=== PATIENT | female | born 1970 | race Caucasian/White ===

== ENCOUNTER 2018-03-04 20:59 | Observation (INO) ==
[2018-03-04 21:23] LABS: Microscopic, Urine URINE MICROSCOPIC (MICROSCOPIC)
[2018-03-04 21:28] LABS: Basophils # 0.1 K/mm3 (0-0.2); Basophils % 0.6 % (0.1-2.0); Eosinophils # 0.2 K/mm3 (0.0-0.4); Eosinophils % 2.1 % (0.1-12.0); Hematocrit 41.3 % (37.0-47.0); Hemoglobin 13.4 g/dL (12.2-16.2); Lymphocytes # 4.4 K/mm3 (0.7-4.5); Lymphocytes % 52.7 % (10-50); Mean Corpuscular HGB Conc 32.4 g/dL (31.8-35.4); Mean Corpuscular Hemoglobin 31.1 pg (27.0-31.2); Mean Corpuscular Volume 95.8 fl (81-99); Mean Platelet Volume 8.2 fl (7.4-10.4); Monocytes # 0.3 K/mm3 (0.1-1.0); Monocytes % 3.9 % (1.7-9.3); Neutrophils # 3.4 K/mm3 (1.8-7.8); Neutrophils % 40.8 % (37.0-80.0); Platelet Count 276 K/mm3 (142-424); Red Blood Count 4.31 M/mm3 (4.20-5.40); Red Cell Distribution Width 12.9 % (11.5-17.5); White Blood Count 8.3 K/mm3 (4.8-10.8)
[2018-03-04 21:41] LABS: Appearance,Urine CLEAR (Clear); Bilirubin,Urine Negative (Negative); Blood, Urine TRACE-L (Negative); Color,Urine YELLOW (Yellow); Glucose,Urine (UA) Negative (Negative); Ketones,Urine Negative (Negative); Leukocyte Esterase,Urine Negative (Negative); PH,Urine 6.5 (5.0-8.5); Protein,Urine Negative (Negative); Specific Gravity, Urine <= 1.005 (1.005-1.030); Urobilinogen,Urine 0.2 EU/dl (0.2)
[2018-03-04 21:46] LABS: Anion Gap 11.6 mEq/L (5-15); Blood Urea Nitrogen 6 mg/dL (7-18); Calcium 8.8 mg/dL (8.5-10.1); Carbon Dioxide 29 mmol/L (21.0-32.0); Chloride 102 mmol/L (98-107); Glucose 108 mg/dL (74-106); Potassium 3.6 mmoL/L (3.5-5.1); Sodium 139 mmol/L (136-145)
[2018-03-04 22:10] LABS: RBC,Urine Occasional #/hpf (0-3)
--- NOTE | 2018-03-04 22:11 | Emergency Department Note ---
ED Disposition Clinical Impression: Near syncope, Dizziness Chest pain Qualifiers: Chest pain type: unspecified Qualified Code(s): R07.9 - Chest pain, unspecified Disposition: Admitted as Observation Condition on Discharge: Good - Critical Care Critical Care Time: No Attestation: On 03/04/18, the high probability of a clinically significant, sudden or life threatening deterioration of the following system(s) required my full and direct attention, intervention and personal management. The time I documented below is in addition to time spent performing reported procedures but includes the following listed in this critical care notation. Medical Decision Making - Medical Records Medical records reviewed: Yes: I reviewed the patient's medical records. - Angel[place] Inquiry Pt receiving controlled substance: No Vital Signs: 03/04/18 21:01 03/04/18 21:20 03/04/18 21:34 Temperature 98.6 F Temperature Source Oral Pulse Rate [Orthostatic Lying] 89 Pulse Rate [Orthostatic Sitting] 98 H Pulse Rate [Orthostatic Standing] 100 H Pulse Rate [Right Brachial] 89 83 Respiratory Rate 16 17 Blood Pressure [Orthostatic Lying] 140/90 Blood Pressure [Orthostatic Sitting] 137/89 Blood Pressure [Orthostatic Standing] 152/81 H Blood Pressure [Right Arm] 140/90 147/81 H Blood Pressure Mean [Right Arm] 106 103 Blood Pressure Source [Right Arm] Automatic Cuff Automatic Cuff Blood Pressure Position [Right Arm] Supine Sitting 02 Sat by Pulse Oximetry 98 97 Oxygen Delivery Method Room Air Room Air 03/04/18 21:43 Temperature Temperature Source Pulse Rate [Orthostatic Lying] Pulse Rate [Orthostatic Sitting] Pulse Rate [Orthostatic Standing] Pulse Rate [Right Brachial] 99 H Respiratory Rate 16 Blood Pressure [Orthostatic Lying] Blood Pressure [Orthostatic Sitting] Blood Pressure [Orthostatic Standing] Blood Pressure [Right Arm] 155/83 H Blood Pressure Mean [Right Arm] 107 Blood Pressure Source [Right Arm] Automatic Cuff Blood Pressure Position [Right Arm] Sitting 02 Sat by Pulse Oximetry 99 Oxygen Delivery Method Room Air - Lab Data Lab results reviewed: Yes: I reviewed the patient's lab results. Lab Results 03/04/18 21:10: Urine Color Yellow, Urine Appearance Clear, Urine pH 6.5, Ur Specific [place] <= 1.005, Urine Protein Negative, Urine Glucose (UA) Negative, Urine Ketones Negative, Urine Blood Trace-l, Urine Nitrate Negative, Urine Bi lirubin Negative, Urine Urobilinogen 0.2, Ur Leukocyte Esterase Negative 03/04/18 21:10: WBC 8.3, RBC 4.31, Hgb 13.4, Hct 41.3, MCV 95.8, MCH 31.1, MCHC 32.4, RDW 12.9, Plt Count 276, MPV 8.2, Neut % (Auto) 40.8, Lymph % (Auto) 52.7 H, [place] % (Auto) 3.9, Eos % (Auto) 2.1, Baso % (Auto) 0.6, Neut # (Auto) 3.4, Lymph # (Auto) 4.4, [place] # (Auto) 0.3, Eos # (Auto) 0.2, Baso # (Auto) 0.1 03/04/18 21:10: Sodium 139, Potassium 3.6, Chloride 102, Carbon Dioxide 29, Anion Gap 11.6, BUN 6 L, Creatinine 0.82, Estimated Creat Clear 105, Estimated GFR 75, Est GFR ( Amer) 91, Glucose 108 H, Calcium 8.8, Troponin I < 0.02 Result diagrams: 03/04/18 21:10 03/04/18 21:10 Orders (Tests/Meds): ED MEDICATIONS Generic Name Dose Route Start Last Admin Trade Name Freq PRN Reason Stop Dose Admin Sodium Chloride 1,000 mls @ 999 mls/hr 03/04/18 21:30 03/04/18 21:24 Sod Chlor 0.9% 1000ml Bag IV 03/04/18 22:30 999 mls/hr .Q1H1M LEIDA Administration ORDERS Category Date Time Status XR chest 2V Stat Exams 03/04/18 21:15 Taken Complete Blood Count Auto Diff Stat Lab 03/04/18 21:10 Results Urinalysis and Microscopic Stat Lab 03/04/18 21:10 Ordered ECG Request by /Aga Stat Y 03/04/18 21:15 Ordered - Radiology Data #1 Image(s): Chest Image Reviewed: Yes I reviewed the patient's radiology image Preliminary Findings: Normal/NAD - ECG Data Tracing #1 I reviewed this ECG and interpreted as documented below: Normal Sinus Rhythm: Yes Ischemic changes: non-specific ST-T wave changes Dizzy HPI - General Chief Complaint: Dizziness Stated Complaint: Dizzy, nausea Time Seen by Provider: 03/04/18 21:10 Mode of Arrival: Ambulatory Source of Information: Patient Limitations: No Limitations Description of Symptoms (Recalled from ER Triage Doc. by RN): Pt states she has been having dizziness and sweating for about a month now. Pt denies any CP or SOA - History of Present Illness HPI Narrative: pt has had progressive episodes of dizzyness over the last month with assoc nausea and diaphoresis with near syncopal episode and chest pain - pt reports no fever or sz and no rash and no other neuro sx MD complaint: dizziness, near syncope Onset (ago): week(s) Timing: waxing/waning Description: lightheadedness, near-syncope History of similar episodes: No History of trauma: No Severity: moderate Associated symptoms: chest pain, diaphoresis, nausea - Related Data Home Medications Medication Instructions Recorded Confirmed Buprenorphine HCl/Naloxone HCl 8 mg PO BID 03/04/18 03/04/18 [Suboxone 8 mg-2 mg Sl Film] Allergies Allergy/AdvReac Type Severity Reaction Status Date / Time paroxetine Allergy Severe S-DIFF. Verified 02/12/18 10:06 BREATHING codeine Allergy Intermediate I-ITCHING Verified 02/12/18 10:06 ketorolac Allergy Intermediate I-HIVES Verified 02/12/18 10:06 latex Allergy Intermediate I-HIVES Verified 02/12/18 10:06 phenytoin AdvReac Severe NA-HALLUCIN Verified 02/12/18 10:06 ATIONS Corticosteroids AdvReac Mild TACHYCARDIA Verified 02/12/18 10:06 (Glucocorticoids) [facility] History I have reviewed the patient's past medical history: Yes Medical History: Denies:: Cancer, Diabetes Mellitus Type 1, Diabetes Mellitus Type 2, MRSA Laterality Cases: Right: Arthroscopy Knee Amputation: No Fractures: No - Social History Smoking Status: Current every day smoker Tobacco Type: cigarettes Alcohol Intake: never Substance Use Type: unknown - Psychiatric History Expresses thoughts of harming self/others: None Suicide Plan Description: No Plan ROS Obtained: Yes All systems reviewed & no additional complaints - Constitutional Constitutional: Denies fever(s) - Eyes Eyes: Denies change in vision - ENT Ears, Nose, Mouth, and Throat: Denies sore throat - Cardiovascular Cardiovascular: Reports chest pain, Reports lightheadedness - Respiratory Respiratory: No cough - Gastrointestinal Gastrointestingal: Denies: diarrhea, nausea, vomiting - Genitourinary Female Genitourinary: Denies hematuria - Musculoskeletal Musculoskeletal: Denies joint pain - Integumentary/Breasts Skin/Breast: Denies rash - Neurologic Neurologic: Denies abnormal speech, Reports dizziness, Denies focal weakness, Denies headache(s), Denies seizure-like activity Physical Exam - General General appearance: alert, in no apparent distress - Head Head exam: atraumatic, normocephalic - Eye Eye exam: Present: PERRL, EOMI, scleral icterus. Absent: nystagmus - ENT ENT exam: Present: normal oropharynx - Neck Neck exam: Present: trachea midline - Respiratory Respiratory exam: Present: normal lung sounds bilaterally - Cardiovascular Cardiovascular exam: Present: regular rate, systolic murmur, other (no bruit) - Abdominal Exam Abdominal exam: Present: soft - Extremities Exam Extremities exam: Absent: calf tenderness - Neurological Exam Neurological exam: Present: alert, oriented X3, CN II-XII intact - Psychiatric Psychiatric exam: Present: normal affect - Skin Skin exam: Absent: rash
[2018-03-04 22:48] LABS: Eosinophils % 3 % (0-3); Lymphocytes % 53 % (10-50); Monocytes % 2 % (2-9); Neutrophils % 42 % (42-76); Total Cells Counted 100
[2018-03-04 22:49] LABS: Anisocytosis 1+
[2018-03-05 05:09] LABS: Hematocrit 37.1 % (37.0-47.0); Hemoglobin 12.1 g/dL (12.2-16.2); Mean Corpuscular HGB Conc 32.5 g/dL (31.8-35.4); Mean Corpuscular Hemoglobin 31.4 pg (27.0-31.2); Mean Corpuscular Volume 96.4 fl (81-99); Mean Platelet Volume 8.4 fl (7.4-10.4); Platelet Count 230 K/mm3 (142-424); Red Blood Count 3.85 M/mm3 (4.20-5.40); White Blood Count 5.7 K/mm3 (4.8-10.8)
[2018-03-05 05:10] LABS: Basophils % 0.5 % (0.1-2.0); Eosinophils # 0.1 K/mm3 (0.0-0.4); Eosinophils % 2.5 % (0.1-12.0); Lymphocytes # 3.5 K/mm3 (0.7-4.5); Lymphocytes % 61.5 % (10-50); Monocytes # 0.3 K/mm3 (0.1-1.0); Monocytes % 4.5 % (1.7-9.3); Neutrophils # 1.7 K/mm3 (1.8-7.8); Neutrophils % 29.1 % (37.0-80.0)
[2018-03-05 05:36] LABS: Anion Gap 12.5 mEq/L (5-15); Calcium 8.1 mg/dL (8.5-10.1); Chol/HDL Ratio 7.1 (1-3.5); Potassium 3.5 mmoL/L (3.5-5.1)
--- NOTE | 2018-03-05 07:45 | Pharmacy Consult Notes ---
[facility] Pharmacy VTE Monitoring - Patient Demographics Admission date: 03/05/18 Report Date: 03/05/18 Time: 07:45 Allergies/Adverse Reactions: Patient Allergies paroxetine Allergy (Severe, Verified 02/12/18 10:06) S-DIFF. BREATHING codeine Allergy (Intermediate, Verified 02/12/18 10:06) I-ITCHING ketorolac Allergy (Intermediate, Verified 02/12/18 10:06) I-HIVES latex Allergy (Intermediate, Verified 02/12/18 10:06) I-HIVES phenytoin Adverse Reaction (Severe, Verified 02/12/18 10:06) NA-HALLUCINATIONS Corticosteroids (Glucocorticoids) Adverse Reaction (Mild, Verified 02/12/18 10:06) TACHYCARDIA Height: 1.65 m Weight: 78.216 kg Patient Problems: Current Active Problems Near syncope (Acute) Dizziness (Acute) Chest pain (Acute) - VTE Risk Labs: VTE Related Lab Results Hgb 12.1 g/dL (12.2-16.2) L 03/05/18 04:45 Hct 37.1 % (37.0-47.0) 03/05/18 04:45 Plt Count 230 K/mm3 (142-424) 03/05/18 04:45 BUN 4 mg/dL (7-18) L D 03/05/18 04:45 Creatinine 0.67 mg/dL (0.55-1.02) 03/05/18 04:45 Estimated Creat Clear 131 mL/min (0-300) 03/05/18 04:45 VTE Score: 4 VTE Risk Level: Low Risk Clinical Trial Participant: No - Prophylaxis VTE Prophylaxis Ordered?: Yes Types of VTE Prophylaxis: TEDS Knee High
--- NOTE | 2018-03-05 10:35 | Consult Report ---
Addendum entered and electronically signed by LAINA Taylor 03/05/18 15:43: Preliminary echo showed normal LVEF with only mild MR/TR. GXT, she exercised for 6 min and 9 sec to peak HR of 145 bpm (7.0 METS) without chest pain or arrhythmias. Motion artifact during stress noted with EKG early in recovery showing no significant ST segment changes. OK for discharge home from Cardiology standpoint. Follow up in office in 1-2 wks. Original Note: History of Present Illness Consult date: 03/05/18 Requesting physician: Gaudencio Cantor Consult reason: chest pain Chief complaint: Dizziness, abdominal pain, chest pain, near syncope Additional Medical History:: 1. History of drug use 2. Tobacco use, ongoing 3. Arthritis of the neck with history of surgery A. Chronic pain 4. History of seizure disorder, last seizure in 2013 per patient A. History of carbamazepine use discontinued approximately 2015 with no further seizures B. Allergy to Dilantin History of present illness: 47-year-old white female with history of tobacco use, history of seizure disorder and arthritis of the neck presented to the ER for evaluation of a constellation of symptoms including dizziness, abdominal pain and chest pain with near passing out symptoms. Patient relates seizure disorder with history of dizziness as her warning symptoms prior to her seizure. Patient denies any recent seizure activity. Her current symptoms start with abdominal pain then lightheadedness and dizziness. Chest pain has only come occasionally and is not associated with exertion. She does relate taking 800 mg of ibuprofen every night on an empty stomach for arthritis pain in her neck. She denies any vomiting or diarrhea but has had some nausea and diaphoresis. She has never had a GI evaluate but does relate some bright red blood per rectum felt due to hemorrhoids. She denies any dark, tarry stools. EKG is sinus rhythm without acute ST segment changes. Troponins are returned normal x3. Cardiology consulted for evaluation and recommendations. [facility] History Medical History: Denies:: Cancer, Diabetes Mellitus Type 1, Diabetes Mellitus Type 2, MRSA Other Medical History: Reports: Arthritis Laterality Cases: Left: Arthroscopy Shoulder, Right: Arthroscopy Knee Other Surgeries: Yes: , Hysterectomy-Partial, Tubal Ligation Amputation: No Fractures: No - *Social History Educational Level: Attended High School Smoking Status: Current every day smoker Tobacco Type: cigarettes # Packs/Day (cigarettes): 1 #Yrs smoked (if former smoker): 30 Alcohol Intake: former Substance Use Type: opiates Occupational Status: employed Housing: apartment - Psychiatric History Expresses thoughts of harming self/others: None Suicide Plan Description: No Plan *Family Hx:: Asthma, Cancer, Diabetes, Heart Attack, Hyperlipidemia, Hypertension Meds Home Medications Medication Instructions Recorded Confirmed Type Buprenorphine HCl/Naloxone HCl 8 mg PO BID 03/04/18 03/04/18 History [Suboxone 8 mg-2 mg Sl Film] Allergies Allergy/AdvReac Type Severity Reaction Status Date / Time paroxetine Allergy Severe S-DIFF. Verified 02/12/18 10:06 BREATHING codeine Allergy Intermediate I-ITCHING Verified 02/12/18 10:06 ketorolac Allergy Intermediate I-HIVES Verified 02/12/18 10:06 latex Allergy Intermediate I-HIVES Verified 02/12/18 10:06 phenytoin AdvReac Severe NA-HALLUCIN Verified 02/12/18 10:06 ATIONS Corticosteroids AdvReac Mild TACHYCARDIA Verified 02/12/18 10:06 (Glucocorticoids) Review of Systems - *Cardiovascular Reports chest pain, Denies shortness of breath with activity - *Respiratory Denies shortness of breath with activity - *Gastrointestinal Reports abdominal pain - *Genitourinary Denies blood in urine - *Musculoskeletal Reports neck pain - *Neurologic Reports dizziness, Denies abnormal speech, Denies localized weakness, Denies headache(s), Denies seizure-like activity Exam Vital signs and Labs for Last 24 Hours: Temp Pulse Resp BP Pulse Ox 97.9 F 73 16 106/60 L 96 03/05/18 07:40 03/05/18 07:40 03/05/18 07:40 03/05/18 07:40 03/05/18 07:40 Laboratory Results - last 24 hr 03/04/18 21:10: Urine Color Yellow, Urine Appearance Clear, Urine pH 6.5, Ur Specific [place] <= 1.005, Urine Protein Negative, Urine Glucose (UA) Negative, Urine Ketones Negative, Urine Blood Trace-l, Urine Nitrate Negative, Urine Bilirubin Negative, Urine Urobilinogen 0.2, Ur Leukocyte Esterase Negative, Urine RBC Occasional, Urine WBC None, Ur Squamous Epith Cells 3-5, Urine Bacteria None 03/04/18 21:10: WBC 8.3, RBC 4.31, Hgb 13.4, Hct 41.3, MCV 95.8, MCH 31.1, MCHC 32.4, RDW 12.9, Plt Count 276, MPV 8.2, Neut % (Auto) 40.8, Lymph % (Auto) 52.7 H, [place] % (Auto) 3.9, Eos % (Auto) 2.1, Baso % (Auto) 0.6, Neut # (Auto) 3.4, Lymph # (Auto) 4.4, [place] # (Auto) 0.3, Eos # (Auto) 0.2, Baso # (Auto) 0.1, Total Counted 100, Neutrophils % (Manual) 42, Lymphocytes % (Manual) 53 H, Monocytes % (Manual) 2, Eosinophils % (Manual) 3, Platelet Estimate Normal, Anisocytosis 1+ 03/04/18 21:10: Sodium 139, Potassium 3.6, Chloride 102, Carbon Dioxide 29, Anion Gap 11.6, BUN 6 L, Creatinine 0.82, Estimated Creat Clear 105, Estimated GFR 75, Est GFR ( Amer) 91, Glucose 108 H, Calcium 8.8, Troponin I < 0.02 03/05/18 01:30: Troponin I < 0.02 03/05/18 04:45: Troponin I < 0.02 03/05/18 04:45: WBC 5.7 D, RBC 3.85 L, Hgb 12.1 L, Hct 37.1, MCV 96.4, MCH 31.4 H, MCHC 32.5, RDW 13.0, Plt Count 230, MPV 8.4, Neut % (Auto) 29.1 L, Lymph % (Auto) 61.5 H, [place] % (Auto) 4.5, Eos % (Auto) 2.5, Baso % (Auto) 0.5, Neut # (Auto) 1.7 L, Lymph # (Auto) 3.5, [place] # (Auto) 0.3, Eos # (Auto) 0.1, Baso # (Auto) 0.0 03/05/18 04:45: Sodium 142, Potassium 3.5, Chloride 106, Carbon Dioxide 27, Anion Gap 12.5, BUN 4 L D, Creatinine 0.67, Estimated Creat Clear 131, Estimated GFR 95, Est GFR ( Amer) 115 D, Glucose 79 D, Calcium 8.1 L, Triglycerides 158, Cholesterol 193, LDL Cholesterol 134 H, VLDL Cholesterol 32, HDL Cholesterol 27 L, Cholesterol/HDL Ratio 7.1 H I & O for Last 24 hours: Intake & Output 03/02/18 03/03/18 03/04/18 03/05/18 11:59 11:59 11:59 11:59 Intake Total 1063 / 1063 Balance 1063 / 1063 Weight 172 lb 7 oz - *Routine Neck Exam Present: supple. Absent: JVD, carotid bruit - *Routine Respiratory Exam Present: CTA bilaterally. Absent: accessory muscle use, rales, rhonchi, wheezes - *Routine Cardiovascular Exam Present: RRR. Absent: murmur, gallop, rubs - *Routine Abdominal Exam Present: soft, tenderness. Absent: distended, guarding Comments: Tender to light palpation in the epigastric area. - *Routine Extremities Exam Absent: edema, calf tenderness - *Routine Skin Exam Present: warm. Absent: cyanosis - *Routine Neurological Exam Present: alert, oriented X3, moving all extremities Assessment and Plan (1) Atypical chest pain Current visit: Yes Status: Acute Category: Medical Code(s): R07.89 - Other chest pain (2) Tobacco use Current visit: Yes Status: Acute Category: Medical Code(s): Z72.0 - Tobacco use (3) Dizziness Current visit: Yes Status: Acute Category: Medical Code(s): R42 - Dizziness and giddiness (4) Near syncope Current visit: Yes Status: Acute Category: Medical Code(s): R55 - Syncope and collapse - Assessment and plan all Dx Assessment and Plan for all problems:: Patient's constellation of symptoms are somewhat atypical for cardiac disease with no exertional component. However, due to the patient's family history of coronary artery disease and her tobacco use, would recommend proceeding with a routine stress test and an echocardiogram for further evaluation. Anticipate patient will have both today and can be discharged home later today. Discussed with Dr. Cantor regarding possible GI etiology and will defer further evaluation and treatment to him.
--- NOTE | 2018-03-05 11:23 | H&P/Discharge Summary ---
General - General Admission date:: 03/04/18 Discharge date: 03/05/18 *Admission Date: 03/05/18 *Chief complaint: dizzyness *History of present illness: this wf with episodes of chest pain and dizzyness progressive over the last month with diaphoresis and near syncope - pt with positive risk factors and had salbador of 2 by my eval - she was seen in the ed and admitted for ht monitoring and card eval - [facility] History I have reviewed the patient's past medical history: Yes Medical History: Denies:: Cancer, Diabetes Mellitus Type 1, Diabetes Mellitus Type 2, MRSA Other Medical History: Reports: Arthritis Laterality Cases: Left: Arthroscopy Shoulder, Right: Arthroscopy Knee Other Surgeries: Yes: , Hysterectomy-Partial, Tubal Ligation Amputation: No Fractures: No - *Social History Educational Level: Attended High School Smoking Status: Current every day smoker Tobacco Type: cigarettes # Packs/Day (cigarettes): 1 #Yrs smoked (if former smoker): 30 Alcohol Intake: former Substance Use Type: opiates Occupational Status: employed Housing: apartment - Psychiatric History Expresses thoughts of harming self/others: None Suicide Plan Description: No Plan *Family Hx:: Asthma, Cancer, Diabetes, Heart Attack, Hyperlipidemia, Hypertension Review of Systems - Review of Systems Review of systems:: pertinent systems reviewed and negative unless documented below - Constitutional Reports weakness, Denies fever(s) - Eyes Denies change in vision - ENT Denies sore throat - *Cardiovascular Denies chest pain at rest - *Respiratory Denies cough - *Gastrointestinal Denies abdominal pain - *Genitourinary Denies blood in urine - *Musculoskeletal Denies joint swelling - Integumentary/Breasts Denies rash - *Neurologic Reports dizziness, Denies abnormal speech, Denies localized weakness, Denies headache(s), Denies seizure-like activity - Psychiatric Reports anxiety Exam Vital signs and Labs for Last 24 Hours: Temp Pulse Resp BP Pulse Ox 97.9 F 80 16 106/60 L 96 03/05/18 07:40 03/05/18 08:00 03/05/18 07:40 03/05/18 07:40 03/05/18 07:40 Laboratory Results - last 24 hr 03/04/18 21:10: Urine Color Yellow, Urine Appearance Clear, Urine pH 6.5, Ur Specific [place] <= 1.005, Urine Protein Negative, Urine Glucose (UA) Negative, Urine Ketones Negative, Urine Blood Trace-l, Urine Nitrate Negative, Urine Bilirubin Negative, Urine Urobilinogen 0.2, Ur Leukocyte Esterase Negative, Urine RBC Occasional, Urine WBC None, Ur Squamous Epith Cells 3-5, Urine Bacteria None 03/04/18 21:10: WBC 8.3, RBC 4.31, Hgb 13.4, Hct 41.3, MCV 95.8, MCH 31.1, MCHC 32.4, RDW 12.9, Plt Count 276, MPV 8.2, Neut % (Auto) 40.8, Lymph % (Auto) 52.7 H, [place] % (Auto) 3.9, Eos % (Auto) 2.1, Baso % (Auto) 0.6, Neut # (Auto) 3.4, Lymph # (Auto) 4.4, [place] # (Auto) 0.3, Eos # (Auto) 0.2, Baso # (Auto) 0.1, Total Counted 100, Neutrophils % (Manual) 42, Lymphocytes % (Manual) 53 H, Monocytes % (Manual) 2, Eosinophils % (Manual) 3, Platelet Estimate Normal, Anisocytosis 1+ 03/04/18 21:10: Sodium 139, Potassium 3.6, Chloride 102, Carbon Dioxide 29, Anion Gap 11.6, BUN 6 L, Creatinine 0.82, Estimated Creat Clear 105, Estimated GFR 75, Est GFR ( Amer) 91, Glucose 108 H, Calcium 8.8, Troponin I < 0.02 03/05/18 01:30: Troponin I < 0.02 03/05/18 04:45: Troponin I < 0.02 03/05/18 04:45: WBC 5.7 D, RBC 3.85 L, Hgb 12.1 L, Hct 37.1, MCV 96.4, MCH 31.4 H, MCHC 32.5, RDW 13.0, Plt Count 230, MPV 8.4, Neut % (Auto) 29.1 L, Lymph % (Auto) 61.5 H, [place] % (Auto) 4.5, Eos % (Auto) 2.5, Baso % (Auto) 0.5, Neut # (Auto) 1.7 L, Lymph # (Auto) 3.5, [place] # (Auto) 0.3, Eos # (Auto) 0.1, Baso # (Auto) 0.0 03/05/18 04:45: Sodium 142, Potassium 3.5, Chloride 106, Carbon Dioxide 27, Anion Gap 12.5, BUN 4 L D, Creatinine 0.67, Estimated Creat Clear 131, Estimated GFR 95, Est GFR ( Amer) 115 D, Glucose 79 D, Calcium 8.1 L, Triglycerides 158, Cholesterol 193, LDL Cholesterol 134 H, VLDL Cholesterol 32, HDL Cholesterol 27 L, Cholesterol/HDL Ratio 7.1 H I & O for Last 24 hours: Intake & Output 03/02/18 03/03/18 03/04/18 03/05/18 11:59 11:59 11:59 11:59 Intake Total 1063 / 1063 Balance 1063 / 1063 Weight 172 lb 7 oz - Constitutional no acute distress - *Routine HEENT Exam Head: Present: normocephalic Eye: Present: EOMI, PERRL. Absent: conjunctival icterus ENT: Present: mucous membranes dry - *Routine Neck Exam Present: supple - *Routine Respiratory Exam Present: CTA bilaterally - *Routine Cardiovascular Exam Present: RRR, murmur - *Routine Abdominal Exam Present: soft - *Routine Extremities Exam Absent: calf tenderness - *Routine Skin Exam Present: intact - *Routine Neurological Exam Present: alert, oriented X3, CN II-XII intact - Routine Psychiatric Exam Present: anxious Hospital Course Hospital Course: pt with stable card enx and monitor and was seen by card -felicia, abdominal pain, chest pain, near syncope Additional Medical History:: 1. History of drug use 2. Tobacco use, ongoing 3. Arthritis of the neck with history of surgery A. Chronic pain 4. History of seizure disorder, last seizure in 2013 per patient A. History of carbamazepine use discontinued approximately 2016 with no further seizures B. Allergy to Dilantin History of present illness: 47-year-old white female with history of tobacco use, history of seizure disorder and arthritis of the neck presented to the ER for evaluation of a constellation of symptoms including dizziness, abdominal pain and chest pain with near passing out symptoms. Patient relates seizure disorder with history of dizziness as her warning symptoms prior to her seizure. Patient denies any recent seizure activity. Her current symptoms start with abdominal pain then lightheadedness and dizziness. Chest pain has only come occasionally and is not associated with exertion. She does relate taking 800 mg of ibuprofen every night on an empty stomach for arthritis pain in her neck. She denies any vomiting or diarrhea but has had some nausea and diaphoresis. She has never had a GI evaluate but does relate some bright red blood per rectum felt due to hemorrhoids. She denies any dark, tarry stools. EKG is sinus rhythm without acute ST segment changes. Troponins are returned normal x3. Cardiology consulted for evaluation and recommendations. radha's constellation of symptoms are somewhat atypical for cardiac disease with no exertional component. However, due to the patient's family history of coronary artery disease and her tobacco use, would recommend proceeding with a routine stress test and an echocardiogram for further evaluation. Anticipate patient will have both today and can be discharged home later today. Discussed with Dr. Cantor regarding possible GI etiology and will defer further evaluation and treatment to him. pt will be followe as op and discuss risk factors Results Labs on day of discharge: Labs from last 24 hours 03/05/18 03/05/18 03/05/18 04:45 04:45 04:45 WBC 5.7 D RBC 3.85 L Hgb 12.1 L Hct 37.1 MCV 96.4 MCH 31.4 H MCHC 32.5 RDW 13.0 Plt Count 230 MPV 8.4 Neut % (Auto) 29.1 L Lymph % (Auto) 61.5 H [place] % (Auto) 4.5 Eos % (Auto) 2.5 Baso % (Auto) 0.5 Neut # (Auto) 1.7 L Lymph # (Auto) 3.5 [place] # (Auto) 0.3 Eos # (Auto) 0.1 Baso # (Auto) 0.0 Total Counted Neutrophils % (Manual) Lymphocytes % (Manual) Monocytes % (Manual) Eosinophils % (Manual) Platelet Estimate Anisocytosis Sodium 142 Potassium 3.5 Chloride 106 Carbon Dioxide 27 Anion Gap 12.5 BUN 4 L D Creatinine 0.67 Estimated Creat Clear 131 Estimated GFR 95 Est GFR ( Amer) 115 D Glucose 79 D Calcium 8.1 L Troponin I < 0.02 Triglycerides 158 Cholesterol 193 LDL Cholesterol 134 H VLDL Cholesterol 32 HDL Cholesterol 27 L Cholesterol/HDL Ratio 7.1 H Urine Color Urine Appearance Urine pH Ur Specific [place] Urine Protein Urine Glucose (UA) Urine Ketones Urine Blood Urine Nitrate Urine Bilirubin Urine Urobilinogen Ur Leukocyte Esterase Urine RBC Urine WBC Ur Squamous Epith Cells Urine Bacteria 03/05/18 03/04/18 03/04/18 01:30 21:10 21:10 WBC 8.3 RBC 4.31 Hgb 13.4 Hct 41.3 MCV 95.8 MCH 31.1 MCHC 32.4 RDW 12.9 Plt Count 276 MPV 8.2 Neut % (Auto) 40.8 Lymph % (Auto) 52.7 H [place] % (Auto) 3.9 Eos % (Auto) 2.1 Baso % (Auto) 0.6 Neut # (Auto) 3.4 Lymph # (Auto) 4.4 [place] # (Auto) 0.3 Eos # (Auto) 0.2 Baso # (Auto) 0.1 Total Counted 100 Neutrophils % (Manual) 42 Lymphocytes % (Manual) 53 H Monocytes % (Manual) 2 Eosinophils % (Manual) 3 Platelet Estimate Normal Anisocytosis 1+ Sodium 139 Potassium 3.6 Chloride 102 Carbon Dioxide 29 Anion Gap 11.6 BUN 6 L Creatinine 0.82 Estimated Creat Clear 105 Estimated GFR 75 Est GFR ( Amer) 91 Glucose 108 H Calcium 8.8 Troponin I < 0.02 < 0.02 Triglycerides Cholesterol LDL Cholesterol VLDL Cholesterol HDL Cholesterol Cholesterol/HDL Ratio Urine Color Urine Appearance Urine pH Ur Specific [place] Urine Protein Urine Glucose (UA) Urine Ketones Urine Blood Urine Nitrate Urine Bilirubin Urine Urobilinogen Ur Leukocyte Esterase Urine RBC Urine WBC Ur Squamous Epith Cells Urine Bacteria 03/04/18 21:10 WBC RBC Hgb Hct MCV MCH MCHC RDW Plt Count MPV Neut % (Auto) Lymph % (Auto) [place] % (Auto) Eos % (Auto) Baso % (Auto) Neut # (Auto) Lymph # (Auto) [place] # (Auto) Eos # (Auto) Baso # (Auto) Total Counted Neutrophils % (Manual) Lymphocytes % (Manual) Monocytes % (Manual) Eosinophils % (Manual) Platelet Estimate Anisocytosis Sodium Potassium Chloride Carbon Dioxide Anion Gap BUN Creatinine Estimated Creat Clear Estimated GFR Est GFR ( Amer) Glucose Calcium Troponin I Triglycerides Cholesterol LDL Cholesterol VLDL Cholesterol HDL Cholesterol Cholesterol/HDL Ratio Urine Color Yellow Urine Appearance Clear Urine pH 6.5 Ur Specific [place] <= 1.005 Urine Protein Negative Urine Glucose (UA) Negative Urine Ketones Negative Urine Blood Trace-l Urine Nitrate Negative Urine Bilirubin Negative Urine Urobilinogen 0.2 Ur Leukocyte Esterase Negative Urine RBC Occasional Urine WBC None Ur Squamous Epith Cells 3-5 Urine Bacteria None DS: Diagnosis - Discharge Diagnosis (1) Atypical chest pain Status: Acute (2) Tobacco use Status: Acute (3) Dizziness Status: Acute (4) Near syncope Status: Acute (5) Hyperlipidemia LDL goal <100 Status: Acute Discharge Medications - Medications for Discharge Home Medication List at Discharge: New Nicotine [Nicoderm 21mg/24hr patch] 21 mg TD DAILYP PRN #30 patch.td24 PRN Reason: Nicotine Cravings Continue Buprenorphine HCl/Naloxone HCl [Suboxone 8 mg-2 mg Sl Film] 8 mg PO BID
[2018-03-05 11:52] VITALS: BP 98/52
--- NOTE | 2018-03-06 15:14 | Cardiology Report ---
PROCEDURE: 2-D M-mode and color Doppler study INDICATIONS FOR THE TEST: Chest pain+ COPD Heart Murmur+ Tobacco Smoking+ Palpitations Fatigue Syncope Edema Hypertension Diabetes Mellitus Rheumatic Fever SOB MACDONALD Obesity Hyperlipidemia Family History HD Additional History PATIENT INFORMATION HEIGHT: 65 WEIGHT:167 GENDER: Female B/P:140/90 2-D/M-MODE INTERPRETATION: 2-D MEASUREMENTS OBSERVED VALUES IN CMS Right Ventricular Dimension (RVDd) 2.1 Interventricular Septum (Thickness)(IVsd) 1.0 Left Ventricular Internal Dimensions(LVIDd) 4.0 Left Ventricular Posterior Wall (Thickness)(LVPWd) 1.0 Aortic Root 2.9 Aortic Cusp Separation 1.8 Left Atrial Dimensions (LAD) 2.6 2D 1. Left atrium is normal size, left ventricle is normal size, there is no concentric left ventricular hypertrophy, visually estimated ejection fraction 55% with no regional wall motion abnormality. 2. The right atrium and right ventricle are normal size and contractility. 3. The aortic, mitral and tricuspid valvular grossly normal. 4. The pulmonic valve is poorly visualized. 5. No significant pericardial effusion noted. DOPPLER INTERROGATION: Doppler interrogation of the aortic, mitral and tricuspid valvular presence of mild mitral and tricuspid regurgitation, tricuspid regurgitation jet velocity is inadequate for calculation of the right ventricular systolic pressure, diastolic parameters are inconclusive, inferior vena cava is normal size with normal inspiratory collapse. CONCLUSION: 1. Normal left ventricular size, preserved left ventricular systolic function, visually estimated ejection fraction 55% with no regional wall motion abnormality. Diastolic parameters are inconclusive, inferior vena cava is normal size with normal is 20 collapse. 2. Mild mitral and tricuspid regurgitation 3. No significant pericardial effusion noted.
== END 2018-03-05 15:20 | disposition home or self-care (01) ==
LOC: ER 20:59 → 2ND 20:59
PROVIDERS: ADMIT Emergency Medicine; ATTEND Emergency Medicine

== ENCOUNTER → 2018-03-27 10:30 | Outpatient (CLI) | payer MEDICARE, OTHER, SELFPAY ==
--- NOTE | 2018-03-27 10:34 | NM_ITS ---
NM hepatobiliary w pharm HISTORY: Right upper quadrant pain ITS.REASON: ruq pain ORDERING PHYSICIAN: Kary Lea PATIENT AGE: 47 years COMPARISON: None DOSE: 8.02 [facility]ci tc choletec injected into right ant Fatty Meal:Ensure FINDINGS: Homogeneous activity is present within the hepatic parenchyma. Activity is present in the gallbladder by 15 minutes. Activity is present in the small bowel by 20 minutes. The gallbladder ejection fraction is calculated to be 59%. The patient did not report pain or other symptoms during fatty meal ingestion. IMPRESSION: Unremarkable hepatobiliary scan and gallbladder ejection fraction. No evidence of common or cystic duct obstruction with normal gallbladder ejection fraction
== END ==
PROVIDERS: PCP Nurse Practitioner Family; Visit Provider Nurse Practitioner Family
DX: R10.11 Right upper quadrant pain (principal)
CPT/HCPCS: 78227; A9537

== ENCOUNTER 2018-05-27 09:00 | Outpatient (RCR) | payer MEDICARE, OTHER, SELFPAY ==
--- NOTE | 2018-05-20 09:55 | HMH.PTOPEV ---
PT Outpatient Evaluation Rehab PT Outpatient Evaluation Start: 05/20/18 09:42 Freq: Status: Active Protocol: Document 05/20/18 09:42 SORENMARION (Rec: 05/20/18 09:54 ANGUS [id number]) Electronically Signed By Joss Bruce PT 05/20/18 09:42 Outpatient Therapy Subjective History Subjective History This is the initial Physical Therapy evaluation for Annmarie Tyler. Pt is a 47 y/o female referred to PT for c/o dizziness . Pt reports she had onset of vertigo in January of 2018, w/ unrelenting S&S until mid february. Pt reports now her vertigo has become intermittant and is mostly noted on R side. Chief Complaint Other Symptom Type Other Symptoms Relieved By Rest/Positioning Symptoms Aggravated By Bending/Stooping Twisting Prior Functional Limitations None Current Functional Limitations Housework Driving Sleeping Recreation Activity Balance Bending/Stooping Symptom Description Intermittent Balance Eval Subjective Hx of Complaint Comment began in Jan. Chief Complaint vertigo Yes Did you feel dizzy, unsteady or faint? Yes Prior Functional Limitations Prior Functional [place] Level I w/ all Current Functional Limitations Comment sig. work affect Hx of Falls Hx Falls No Gait/Posture Asssessment General Gait Observation No Deviations/Normal Assistive Devices None / NA Level of Transfer Assist Independent Hip Observation in Gait Swing No Deviation Hip Observation in Gait Stance No Deviation Ankle/Foot Observation in Gait Swing No Deviation Ankle/Foot Observation in Gait Stance No Deviation Nystagmus Nystagmus Presence Positional Nystagmus Description Right Direction Geotropic Latency - Immediate Outpatient Therapy Assessment Impairments Problems/Impairmments Impaired Household Care Impaired Bending Impaired Recreational Activities Impaired Work Activities Impaired Balance Impaired Self Care/Self
== END 2018-05-27 09:05 | disposition home or self-care (01) ==
LOC: PT 09:00
PROVIDERS: Visit Provider Specialist
DX: R42 Dizziness and giddiness (principal); R55 Syncope and collapse
CPT/HCPCS: 97110; 97163

== ENCOUNTER → 2018-06-09 09:30 | Outpatient (CLI) | payer MEDICARE, OTHER, SELFPAY ==
--- NOTE | 2018-06-09 09:38 | MR_ITS ---
MR head/brain wo/w con HISTORY: ITS.REASON: dizziness, near syncope, vertigo, history of seizures ORDERING PHYSICIAN: Ling Pena MD PATIENT AGE: 47 years Comparison: None TECHNIQUE: Standard multiplanar multiecho sequences are performed without and with gadolinium enhancement. FINDINGS: No midline shift, mass effect, intracranial hemorrhage, or hydrocephalus is evident. The cerebellopontine angles, cerebellum, and brainstem are unremarkable. No evidence of acute infarction. No enhancing lesions are evident. There is some asymmetry of the lateral ventricles the right being slightly larger than the left. This is of questionable clinical significance and may be a normal variant. There is no evidence of a lesion in the foramen of [place]. The pituitary, corpus callosum, optic chiasm, and craniocervical junction has an unremarkable appearance. There is normal rodriguez-white matter differentiation. A small T2 white matter hyperintensity is present in the right frontal area nonspecific. There is minimal amount of fluid in the mastoid sinuses on both sides and minimal mucosal thickening of the ethmoid sinus on the left. IMPRESSION: 1. No acute intracranial findings. 2. Minimal mastoid and left ethmoid sinus disease
--- NOTE | 2018-06-09 10:50 | HMH.ITSHM ---
Current Home Medications as stated by this patient Annmarie Tyler or professional healthcare representative. []SUBOXONE
== END ==
PROVIDERS: PCP Emergency Medicine; Visit Provider Specialist
DX: R42 Dizziness and giddiness (principal); R55 Syncope and collapse
CPT/HCPCS: 70553; A9576

== ENCOUNTER → 2018-07-14 12:51 | Outpatient (CLI) | payer MEDICARE, OTHER, SELFPAY | PROVIDERS: PCP Emergency Medicine; Visit Provider Specialist | DX: R42 Dizziness and giddiness (principal); R55 Syncope and collapse | CPT/HCPCS: 95816 ==

== ENCOUNTER → 2018-08-11 17:37 | Outpatient (CLI) | payer MEDICARE, OTHER, SELFPAY ==
[2018-08-11 18:20] LABS: Basophils % 0.2 % (0.1-2.0); Eosinophils # 0.2 K/mm3 (0.0-0.4); Eosinophils % 2.6 % (0.1-12.0); Hematocrit 39.2 % (37.0-47.0); Hemoglobin 13.1 g/dL (12.2-16.2); Lymphocytes # 2.1 K/mm3 (0.7-4.5); Lymphocytes % 36.8 % (10-50); Mean Corpuscular HGB Conc 33.4 g/dL (31.8-35.4); Mean Corpuscular Hemoglobin 31.7 pg (27.0-31.2); Mean Corpuscular Volume 95.1 fl (81-99); Mean Platelet Volume 8.4 fl (7.4-10.4); Monocytes # 0.3 K/mm3 (0.1-1.0); Neutrophils # 3.1 K/mm3 (1.8-7.8); Neutrophils % 54.4 % (37.0-80.0); Platelet Count 251 K/mm3 (142-424); Red Blood Count 4.12 M/mm3 (4.20-5.40); Red Cell Distribution Width 12.9 % (11.5-17.5); White Blood Count 5.6 K/mm3 (4.8-10.8)
[2018-08-11 19:06] LABS: Alanine Aminotransferase 19 U/L (12-78); Albumin Level 3.7 gm/dL (3.4-5.0); Alkaline Phosphatase 63 U/L (46-116); Anion Gap 12.5 mEq/L (5-15); Aspartate Amino Transferase 13 U/L (15-37); Bilirubin,Total 0.2 mg/dL (0.2-1.0); Blood Urea Nitrogen 7 mg/dL (7-18); Carbon Dioxide 29 mmol/L (21.0-32.0); Chloride 103 mmol/L (98-107); Creatinine,Serum 0.78 mg/dL (0.55-1.02); Estimated Glomerular Filt Rate 80 ml/min (>60); Free T4 (Free Thyroxine) 0.89 ng/dl (0.76-1.46); GFR (African American) 97 ML/MIN (>60); Globulin 3.8 gm/dl (1.3-3.2); Glucose 93 mg/dL (74-106); Potassium 4.5 mmoL/L (3.5-5.1); Sodium 140 mmol/L (136-145); Thyroid Stimulating Hormone 2.17 uIU/ml (0.358-3.740); Total Protein,Serum 7.5 gm/dL (6.4-8.2)
[2018-08-11 19:46] LABS: Amphetamine/Metha Screen,Urine Negative ng/mL (<1000); Barbiturates Screen,Urine Negative ng/mL (<200); Benzodiazepines Screen,Urine Positive ng/mL (<200); Cannabinoid Screen,Urine Positive ng/mL (<50); Cocaine Screen,Urine Negative ng/mL (<300); Methadone Screen,Urine Negative ng/mL (<300); Opiate Screen,Urine Negative ng/mL (<300); Phencyclidine Screen,Urine Negative ng/mL (<25)
[2018-08-13 12:45] LABS: Vitamin B12 312 pg/mL (232-1245); Vitamin D 25 Hydroxy 16.4 ng/mL (30.0-100.0)
== END ==
PROVIDERS: Visit Provider Emergency Medicine
DX: Z79.899 Other long term (current) drug therapy (principal); R42 Dizziness and giddiness; E53.8 Deficiency of other specified B group vitamins
CPT/HCPCS: 80053; 80305; 82607; 82652; 84439; 84443; 85025

== ENCOUNTER → 2018-10-15 12:38 | Outpatient (CLI) | payer MEDICARE, OTHER, SELFPAY ==
--- NOTE | 2018-10-15 12:52 | MR_ITS ---
MR lumbar spine wo con, MR 3-d myelogram/MRCP HISTORY: [id number] ago LT sided [place] pain and lt leg pain, numbness, and tingling. LBP Xyrs. ITS.REASON: back pain ORDERING PHYSICIAN: Gaudencio Cantor MD PATIENT AGE: 47 years Comparison: None TECHNIQUE: Standard multiplanar multiecho sequences are performed without contrast. 3-D MIP and myelographic images are also rendered and reviewed FINDINGS: There is normal alignment. The spinal cord ends at the L1 level. T12-L1: Unremarkable. L1-L2: Unremarkable. L2-L3: Unremarkable. L3-L4: Unremarkable. L4-L5: Unremarkable. L5-S1: Degenerative disc disease with bulging disc. There is a small broad-based central disc protrusion slightly eccentric to the left which abuts the anterior medial aspect of the left S1 nerve root which appears to be a conjoined root. There is mild facet hypertrophic change with mild bilateral foraminal narrowing and left lateral recess narrowing. No canal stenosis or extruded herniated disc. IMPRESSION: 1. Degenerative disc disease at L5-S1 with bulging disc with a small broad-based central disc protrusion slightly eccentric to the left which abuts the anterior medial aspect of the left S1 nerve root which appears to be a conjoined root. There is mild facet hypertrophic change with mild bilateral foraminal narrowing and left lateral recess narrowing. 2. No canal stenosis or extruded herniated disc.
== END ==
PROVIDERS: PCP Emergency Medicine; Visit Provider Emergency Medicine
DX: M54.9 Dorsalgia, unspecified (principal); M54.5 Low back pain
CPT/HCPCS: 72148; 76376

== ENCOUNTER → 2018-10-27 13:23 | Outpatient (CLI) | payer MEDICARE, OTHER, SELFPAY ==
[2018-10-27 14:30] LABS: Amphetamine/Metha Screen,Urine Negative ng/mL (<1000); Barbiturates Screen,Urine Negative ng/mL (<200); Benzodiazepines Screen,Urine Positive ng/mL (<200); Cannabinoid Screen,Urine Positive ng/mL (<50); Cocaine Screen,Urine Negative ng/mL (<300); Methadone Screen,Urine Negative ng/mL (<300); Opiate Screen,Urine Negative ng/mL (<300); Phencyclidine Screen,Urine Negative ng/mL (<25)
[2018-11-05 09:13] LABS: Alprazolam Positive (.); Benzodiazepines Positive ng/mL (Cutoff=100); Clonazepam Positive (.); Flurazepam Negative (Cutoff=100); Lorazepam Negative (Cutoff=100); Midazolam Negative (Cutoff=100); Temazepam Negative (Cutoff=100); Triazolam Negative (Cutoff=100)
[2018-11-05 14:42] LABS: Clonazepam Confirm 708 ng/mL (Cutoff=100)
== END ==
PROVIDERS: Visit Provider Emergency Medicine
DX: Z79.899 Other long term (current) drug therapy (principal); F41.9 Anxiety disorder, unspecified
CPT/HCPCS: 80305; 80346

== ENCOUNTER → 2018-11-11 09:24 | Outpatient (POV) | payer MEDICARE, OTHER, SELFPAY ==
[2018-11-11 09:38] VITALS: BP 141/90; PULSE 104; RESP 18; O2SAT 98; BMI 29.2
--- NOTE | 2018-11-11 09:53 | HMH.PMCON ---
Assessment and Plan (1) Degenerative joint disease (DJD) of lumbar spine Current visit: Yes Status: Chronic Qualifiers: Spinal osteoarthritis complication: with radiculopathy Qualified Code(s): M47.26 - Other spondylosis with radiculopathy, lumbar region Category: Medical Code(s): M47.816 - Spondylosis without myelopathy or radiculopathy, lumbar region (2) Lumbar radiculopathy Current visit: Yes Status: Chronic Category: Medical Code(s): M54.16 - Radiculopathy, lumbar region (3) Back pain Current visit: Yes Status: Chronic Qualifiers: Back pain location: low back pain Chronicity: chronic Back pain laterality: bilateral Sciatica presence: with sciatica Category: Medical Code(s): M54.9 - Dorsalgia, unspecified - Assessment and plan all Dx Assessment and Plan for all problems:: The patient and I did have a discussion concerning oral medication management. She does understand that we do not prescribe any oral medications. She would prefer to have injective therapy with us. Given her symptoms, I think she would benefit from a lumbar epidural steroid injection at L4 and L5. We will schedule the patient for the procedure and see her back afterwards to reassess her symptoms at that time. The patient is not on any anticoagulation therapy. She is been instructed to call the office if she has any concerns prior to her next appointment. Dr. Moraes has reviewed this note and agrees with this plan of care. This note was dictated using voice recognition software and make contain errors or omissions. HPI - Data of Consult Patient: new to practice Consult date: 11/11/18 Requesting Physician: Monica Alston APRN Primary Care Provider: Gaudencio Cantor MD - Consult Narrative Reason for consult: Back pain History of present illness: Ms. Tyler is a 47 year old female who presents today for referral from Dr. Gaudencio Cantor. Patient presents today with complaints of low back pain that is radiating into her bilateral buttock and legs. Patient is currently on Suboxone 8 mg p.o. twice daily, which is being prescribed by Dr. Ko. The patient was also prescribed [place] [address] Cantor. The patient says that she is not interested in any type of oral medication management with us today. She is interested in injective therapy. She rates her pain an 8 out of 10. She says that she has been having back pain since 2006 and it has progressively gotten worse. She says that she also has severe fibromyalgia which causes her increased pain that she feels just worsens her back pain . CC: Monica Alston APRN [facility] History I have reviewed the patient's past medical history: Yes Medical History: Reports:: Anxiety, Migraine, Seizures Denies:: Cancer, Diabetes Mellitus Type 1, Diabetes Mellitus Type 2, MRSA *Have you ever received a pneumonia vaccine?: No *Have you received a flu vaccine this season?: No Other Medical History: Reports: Arthritis, Fibromyalgia Laterality Cases: Left: Arthroscopy Shoulder, Right: Arthroscopy Knee Other Surgeries: Yes: , Hysterectomy-Partial, Tubal Ligation Amputation: No Fractures: No - *Social History Smoking Status: Current every day smoker Tobacco Type: cigarettes # Packs/Day (cigarettes): 1 #Yrs smoked (if former smoker): 30 Alcohol Intake: never Substance Use Type: marijuana Last Used Substance: unknown *Occupational Status:: employed Housing: apartment *Travel in the last 8 weeks: None - Psychiatric History Pschychiatric History:: Reports:: Anxiety Family Hx:: Asthma, Cancer, Diabetes, Heart Attack, Hyperlipidemia, Hypertension Review of Systems - Review of Systems Review of Systems General: No recent weight changes, no fever, no sleep disturbances Respiratory: No cough, no shortness of air, no recurring pulmonary infections Cardiovascular/peripheral vascular: No chest pain, no palpitations, no edema, no shortness of breath Gastroin
== END ==
PROVIDERS: PCP Emergency Medicine; Visit Provider Clinical Nurse Specialist Family Health
DX: M47.26 Other spondylosis with radiculopathy, lumbar region (principal)
CPT/HCPCS: 99202

== ENCOUNTER → 2018-11-17 13:37 | Outpatient (CLI) | payer MEDICARE, OTHER, SELFPAY ==
[2018-11-17 14:23] LABS: Amphetamine/Metha Screen,Urine Negative ng/mL (<1000); Barbiturates Screen,Urine Negative ng/mL (<200); Benzodiazepines Screen,Urine Negative ng/mL (<200); Cannabinoid Screen,Urine Positive ng/mL (<50); Cocaine Screen,Urine Negative ng/mL (<300); Methadone Screen,Urine Negative ng/mL (<300); Opiate Screen,Urine Positive ng/mL (<300); Phencyclidine Screen,Urine Negative ng/mL (<25)
== END ==
PROVIDERS: Visit Provider Emergency Medicine
DX: M47.816 Spondylosis without myelopathy or radiculopathy, lumbar region (principal); R30.0 Dysuria
CPT/HCPCS: 80305; 87086; 87088; 87186

== ENCOUNTER → 2019-01-16 13:16 | Outpatient (CLI) | payer MEDICARE, OTHER, SELFPAY ==
[2019-01-16 14:02] LABS: Amphetamine/Metha Screen,Urine Negative ng/mL (<1000); Barbiturates Screen,Urine Negative ng/mL (<200); Benzodiazepines Screen,Urine Positive ng/mL (<200); Cannabinoid Screen,Urine Negative ng/mL (<50); Cocaine Screen,Urine Negative ng/mL (<300); Methadone Screen,Urine Negative ng/mL (<300); Opiate Screen,Urine Positive ng/mL (<300); Phencyclidine Screen,Urine Negative ng/mL (<25)
== END ==
PROVIDERS: Visit Provider Emergency Medicine
DX: M47.816 Spondylosis without myelopathy or radiculopathy, lumbar region (principal)
CPT/HCPCS: 80305

== ENCOUNTER → 2019-03-05 16:58 | Outpatient (CLI) | payer MEDICARE, OTHER, SELFPAY ==
--- NOTE | 2019-03-05 17:00 | MM_ITS ---
PROCEDURE: MM DIG SCREENING MAMM BI W/CAD CLINICAL INDICATION: breast cancer screening by mammogram There is no personal or family history of breast cancer COMPARISON: DIGMAMMS MAMMOGRAM SCREEN-TAX COMPLIANCE OFFICER N/C from 05/20/2009 DIGITAL MAMM-SCREEN BILATE from 03/26/2012 TECHNIQUE: Standard CC and MLO images were obtained. R2 CAD reviewed. FINDINGS: The breasts are composed primarily of fat with minimal scattered fibroglandular densities in each breast. There is no suspicious lesion in either breast and no suspicious microcalcifications. IMPRESSION: Fatty type breast parenchyma with no suspicious lesions seen BI-RAD Category: 1 Negative FOLLOW-UP: 1YR 1 Year Follow-up (A letter has been sent to the patient regarding results of the study.) Dictated by: Dr. Jarred Antunez MD 03/08/2019 10:[address] Jarred Antunez MD in [place] 03/08/2019 10:08
== END ==
PROVIDERS: PCP Emergency Medicine; Visit Provider Emergency Medicine
DX: Z12.31 Encounter for screening mammogram for malignant neoplasm of breast (principal)
CPT/HCPCS: 77067

== ENCOUNTER → 2019-03-16 14:10 | Outpatient (CLI) | payer MEDICARE, OTHER, SELFPAY ==
[2019-03-16 20:02] LABS: Amphetamine/Metha Screen,Urine Negative ng/mL (<1000); Barbiturates Screen,Urine Negative ng/mL (<200); Benzodiazepines Screen,Urine Negative ng/mL (<200); Cannabinoid Screen,Urine Positive ng/mL (<50); Cocaine Screen,Urine Negative ng/mL (<300); Methadone Screen,Urine Negative ng/mL (<300); Opiate Screen,Urine Positive ng/mL (<300); Phencyclidine Screen,Urine Negative ng/mL (<25)
== END ==
PROVIDERS: Visit Provider Emergency Medicine
DX: M47.816 Spondylosis without myelopathy or radiculopathy, lumbar region (principal)
CPT/HCPCS: 80305

== ENCOUNTER → 2019-04-06 14:49 | Outpatient (POV) | payer MEDICARE, OTHER, SELFPAY | PROVIDERS: Visit Provider Specialist | DX: M25.522 Pain in left elbow (principal); M25.521 Pain in right elbow; M47.816 Spondylosis without myelopathy or radiculopathy, lumbar region | CPT/HCPCS: 95886; 95910 ==

== ENCOUNTER → 2019-04-30 13:58 | Outpatient (CLI) | payer MEDICARE, OTHER, SELFPAY ==
--- NOTE | 2019-04-30 | XR_ITS ---
PROCEDURE: XR WRIST LT MIN 3V CLINICAL INDICATION: Pain COMPARISON: No exams were available for comparison FINDINGS: No fracture, dislocation, lytic change, or blastic change evident. No significant degenerative change IMPRESSION: No acute findings. Dictated by: Edison Bellamy MD 04/30/2019 16:21 Electronically signed by Edison Bellamy MD in [place] 04/30/2019 16:21
--- NOTE | 2019-04-30 | XR_ITS ---
PROCEDURE: XR CHEST 2V CLINICAL HISTORY: Smoker COMPARISON: [facility] CT CHEST W/O CONTRAST from 05/17/2015 CXR CHEST(2 VIEWS-NOT PORTABLE) from 04/29/2016 CXR CHEST(2 VIEWS-NOT PORTABLE) from 05/07/[id number] ABD PELVIS W/ CONTRAST from 09/24/2016 CXR2V XR chest 2V from 03/04/2018 FINDINGS: The cardiomediastinal silhouette and pulmonary vascularity are within normal limits. There is a 2.7 cm nodule in the right lung base posteriorly which has been seen on previous CT scan dating back to 05/17/2015. The remaining lungs are clear. No acute bony abnormalities. IMPRESSION: No acute finding. 2.7 cm noncalcified nodule in the right lung base posteriorly. This has been present previously probably unchanged which may be confirmed with CT Dictated by: Edison Bellamy MD 04/30/2019 16:26 Electronically signed by Edison Bellamy MD in [place] 04/30/2019 16:26
--- NOTE | 2019-04-30 | XR_ITS ---
PROCEDURE: XR WRIST RT MIN 3V CLINICAL INDICATION: Pain COMPARISON: No exams were available for comparison FINDINGS: No fracture, dislocation, lytic change, or blastic change evident. No significant degenerative change there is a small subarticular cystic area along the proximal surface the lunate nonspecific IMPRESSION: No acute finding. Small subarticular cyst of the lunate Dictated by: Edison Bellamy MD 04/30/2019 16:22 Electronically signed by Edison Bellamy MD in [place] 04/30/2019 16:22
--- NOTE | 2019-04-30 14:02 | XR_ITS ---
PROCEDURE: XR ELBOW RT MIN 3V CLINICAL INDICATION: right elbow pain COMPARISON: No exams were available for comparison FINDINGS: No fracture or dislocation. No lytic or blastic change. There is normal mineralization. The joint spaces are well-preserved. No significant degenerative/arthritic changes. No erosive changes evident. Other findings:None. IMPRESSION: No acute findings. Dictated by: Edison Bellamy MD 04/30/2019 14:29 Electronically signed by Edison Bellamy MD in [place] 04/30/2019 14:29
--- NOTE | 2019-04-30 14:02 | XR_ITS ---
PROCEDURE: XR ELBOW LT MIN 3V CLINICAL INDICATION: left elbow pain COMPARISON: No exams were available for comparison FINDINGS: No fracture or dislocation. No lytic or blastic change. There is normal mineralization. The joint spaces are well-preserved. No significant degenerative/arthritic changes. No erosive changes evident. Other findings:None. IMPRESSION: No acute findings. Dictated by: Edison Bellamy MD 04/30/2019 14:30 Electronically signed by Edison Bellamy MD in [place] 04/30/2019 14:30
[2019-04-30 15:36] LABS: Basophils % 0.5 % (0.1-2.0); Eosinophils # 0.2 K/mm3 (0.0-0.4); Eosinophils % 3.4 % (0.1-12.0); Hematocrit 40.2 % (37.0-47.0); Hemoglobin 13.2 g/dL (12.2-16.2); Lymphocytes # 3.1 K/mm3 (0.7-4.5); Lymphocytes % 47.7 % (10-50); Mean Corpuscular HGB Conc 32.8 g/dL (31.8-35.4); Mean Corpuscular Hemoglobin 30.9 pg (27.0-31.2); Mean Corpuscular Volume 94.3 fl (81-99); Monocytes # 0.3 K/mm3 (0.1-1.0); Monocytes % 3.8 % (1.7-9.3); Neutrophils # 2.9 K/mm3 (1.8-7.8); Neutrophils % 44.6 % (37.0-80.0); Platelet Count 338 K/mm3 (142-424); Red Blood Count 4.27 M/mm3 (4.20-5.40); Red Cell Distribution Width 12.8 % (11.5-17.5); White Blood Count 6.4 K/mm3 (4.8-10.8)
[2019-04-30 16:07] LABS: Anion Gap 12.2 mEq/L (5-15); Blood Urea Nitrogen 7 mg/dL (7-18); Calcium 8.8 mg/dL (8.5-10.1); Carbon Dioxide 30 mmol/L (21.0-32.0); Chloride 103 mmol/L (98-107); Creatinine,Serum 0.79 mg/dL (0.55-1.02); Estimated Glomerular Filt Rate 78 ml/min (>60); GFR (African American) 95 ML/MIN (>60); Glucose 91 mg/dL (74-106); Potassium 4.2 mmoL/L (3.5-5.1); Sodium 141 mmol/L (136-145)
== END ==
PROVIDERS: PCP Emergency Medicine; Visit Provider Orthopaedic Surgery
DX: M25.522 Pain in left elbow (principal); M25.521 Pain in right elbow; Z01.818 Encounter for other preprocedural examination; G56.01 Carpal tunnel syndrome, right upper limb
CPT/HCPCS: 36415; 71046; 73080; 73110; 80048; 85025

== ENCOUNTER → 2019-05-13 18:00 | Outpatient (CLI) | payer MEDICARE, OTHER, SELFPAY ==
[2019-05-13 19:10] LABS: Amphetamine/Metha Screen,Urine Negative ng/mL (<1000); Barbiturates Screen,Urine Negative ng/mL (<200); Benzodiazepines Screen,Urine Positive ng/mL (<200); Cannabinoid Screen,Urine Positive ng/mL (<50); Cocaine Screen,Urine Negative ng/mL (<300); Methadone Screen,Urine Negative ng/mL (<300); Opiate Screen,Urine Positive ng/mL (<300); Phencyclidine Screen,Urine Negative ng/mL (<25)
== END ==
PROVIDERS: Visit Provider Emergency Medicine
DX: M47.816 Spondylosis without myelopathy or radiculopathy, lumbar region (principal)
CPT/HCPCS: 80305

== ENCOUNTER → 2019-06-22 17:26 | Outpatient (CLI) | payer MEDICARE, OTHER, SELFPAY ==
[2019-06-22 18:30] LABS: Basophils % 0.5 % (0.1-2.0); Eosinophils # 0.3 K/mm3 (0.0-0.4); Eosinophils % 3.2 % (0.1-12.0); Hematocrit 39.2 % (37.0-47.0); Lymphocytes # 3.6 K/mm3 (0.7-4.5); Lymphocytes % 43.3 % (10-50); Mean Corpuscular Volume 93.8 fl (81-99); Mean Platelet Volume 8.5 fl (7.4-10.4); Monocytes # 0.5 K/mm3 (0.1-1.0); Monocytes % 5.5 % (1.7-9.3); Neutrophils # 3.9 K/mm3 (1.8-7.8); Neutrophils % 47.4 % (37.0-80.0); Platelet Count 307 K/mm3 (142-424); Red Blood Count 4.18 M/mm3 (4.20-5.40); Red Cell Distribution Width 12.9 % (11.5-17.5); White Blood Count 8.2 K/mm3 (4.8-10.8)
[2019-06-22 19:53] LABS: Chloride 102 mmol/L (98-107); Sodium 141 mmol/L (136-145)
[2019-06-22 19:56] LABS: Blood Urea Nitrogen 11 mg/dl (7-17); Calcium 9.7 mg/dl (8.4-10.2); Carbon Dioxide 32 mmol/L (22.0-30.0); Estimated Glomerular Filt Rate 77 ml/min (>60); GFR (African American) 93 ML/MIN (>60); Glucose 87 mg/dl (74-100)
== END ==
PROVIDERS: Visit Provider Orthopaedic Surgery
DX: Z01.818 Encounter for other preprocedural examination (principal); G56.02 Carpal tunnel syndrome, left upper limb
CPT/HCPCS: 36415; 80048; 85025

== ENCOUNTER → 2019-07-10 16:39 | Outpatient (CLI) | payer MEDICARE, OTHER, SELFPAY ==
[2019-07-10 18:22] LABS: Amphetamine/Metha Screen,Urine Negative ng/ml (<1000); Barbiturates Screen,Urine Negative ng/ml (<200); Benzodiazepines Screen,Urine Positive ng/ml (<200); Cannabinoid Screen,Urine Positive ng/ml (<50); Cocaine Screen,Urine Negative ng/ml (<300); Methadone Screen,Urine Negative ng/ml (<300); Opiate Screen,Urine Positive ng/ml (<300); Phencyclidine Screen,Urine Negative ng/ml (<25)
== END ==
PROVIDERS: Visit Provider Emergency Medicine
DX: M47.816 Spondylosis without myelopathy or radiculopathy, lumbar region (principal)
CPT/HCPCS: 80305

== ENCOUNTER 2019-07-14 22:38 | Observation (INO) ==
[2019-07-14 22:51] LABS: Basophils % 0.4 % (0.1-2.0); Eosinophils # 0.3 K/mm3 (0.0-0.4); Hemoglobin 12.6 g/dL (12.2-16.2); Lymphocytes # 3.2 K/mm3 (0.7-4.5); Lymphocytes % 43.1 % (10-50); Mean Corpuscular HGB Conc 33.2 g/dL (31.8-35.4); Mean Corpuscular Volume 94.4 fl (81-99); Mean Platelet Volume 7.9 fl (7.4-10.4); Monocytes # 0.3 K/mm3 (0.1-1.0); Monocytes % 4.4 % (1.7-9.3); Neutrophils # 3.6 K/mm3 (1.8-7.8); Neutrophils % 48.1 % (37.0-80.0); Platelet Count 300 K/mm3 (142-424); Red Blood Count 4.03 M/mm3 (4.20-5.40); Red Cell Distribution Width 13.4 % (11.5-17.5); White Blood Count 7.5 K/mm3 (4.8-10.8)
[2019-07-14 22:56] LABS: Chloride 102 mmol/L (98-107); Sodium 140 mmol/L (136-145)
[2019-07-14 22:59] LABS: Anion Gap 10.4 mEq/L (5-15); Blood Urea Nitrogen 6 mg/dl (7-17); Calcium 9.3 mg/dl (8.4-10.2); Carbon Dioxide 31 mmol/L (22.0-30.0); Glucose 112 mg/dl (74-100)
--- NOTE | 2019-07-14 23:05 | Emergency Department Note ---
ED Disposition Clinical Impression: Tobacco use, Obesity (BMI 30-39.9), Anxiety Chest pain Qualifiers: Chest pain type: precordial pain Qualified Code(s): R07.2 - Precordial pain Disposition: Admitted as Observation Condition on Discharge: Good Referrals: Gaudencio Cantor MD [Primary Care Provider] - - Critical Care Critical Care Time: No Attestation: On 07/14/19, the high probability of a clinically significant, sudden or life threatening deterioration of the following system(s) required my full and direct attention, intervention and personal management. The time I documented below is in addition to time spent performing reported procedures but includes the following listed in this critical care notation. Medical Decision Making - Medical Records Medical records reviewed: Yes: I reviewed the patient's medical records. - [place] Inquiry Pt receiving controlled substance: No Vital Signs: 07/14/19 22:39 07/14/19 23:31 Temperature 98.7 F Temperature Source Oral Pulse Rate [Right Brachial] 100 H 79 Respiratory Rate 17 18 Blood Pressure [Right Arm] 144/86 H 137/85 Blood Pressure Mean [Right Arm] 105 102 Blood Pressure Source [Right Arm] Automatic Cuff Automatic Cuff Blood Pressure Position [Right Arm] Sitting Sitting 02 Sat by Pulse Oximetry 98 97 Oxygen Delivery Method Room Air Room Air - Lab Data Lab results reviewed: Yes: I reviewed the patient's lab results. Lab Results 07/14/19 22:40: WBC 7.5, RBC 4.03 L, Hgb 12.6, Hct 38.0, MCV 94.4, MCH 31.4 H, MCHC 33.2, RDW 13.4, Plt Count 300, MPV 7.9, Neut % (Auto) 48.1, Lymph % (Auto) 43.1, [place] % (Auto) 4.4, Eos % (Auto) 4.0, Baso % (Auto) 0.4, Neut # (Auto) 3.6, Lymph # (Auto) 3.2, [place] # (Auto) 0.3, Eos # (Auto) 0.3, Baso # (Auto) 0.0 07/14/19 22:40: Sodium 140, Potassium 3.4 L, Chloride 102, Carbon Dioxide 31 H, Anion Gap 10.4, BUN 6 L, Creatinine 0.80, Estimated Creat Clear 128, Estimated GFR 77, Est GFR ( Amer) 93, Glucose 112 H, Calcium 9.3, Troponin I < 0.01 Result diagrams: 07/14/19 22:40 07/14/19 22:40 Orders (Tests/Meds): ED MEDICATIONS Generic Name Dose Route Start Last Admin Trade Name Freq PRN Reason Stop Dose Admin Sodium Chloride 1,000 mls @ 999 mls/hr 07/14/19 22:45 07/14/19 22:47 Sod Chlor 0.9% 1000ml Bag IV 07/14/19 23:45 999 mls/hr .Q1H1M LEIDA Administration Nitroglycerin 0.4 mg 07/14/19 22:45 07/14/19 23:03 Nitrostat 0.4mg Sl Tablet SL 08/13/19 22:44 0.4 tabcap Q5MINP PRN Administration Chest Pain Discontinued Medications Generic Name Dose Route Start Last Admin Trade Name Freq PRN Reason Stop Dose Admin Aspirin 324 mg 07/14/19 22:45 07/14/19 23:12 Aspirin 81mg Chewable Tablet PO 07/14/19 22:46 324 mg ONCE ONE Administration Furosemide 40 mg 07/14/19 23:38 07/14/19 23:46 Lasix 40mg/4ml Vial IV 07/14/19 23:39 40 mg ONCE ONE Administration ORDERS Category Date Time Status XR chest 2V Stat Exams 07/14/19 22:45 Taken Troponin I Q3H Lab 07/15/19 01:45 Ordered Troponin I Q3H Lab 07/15/19 04:45 Ordered - Radiology Data #1 Image(s): Chest Image Reviewed: Yes I reviewed the patient's radiology image Preliminary Findings: Normal/NAD - ECG Data Tracing #1 Normal Sinus Rhythm: Yes Ischemic changes: non-specific ST-T wave changes Chest Pain HPI - General Chief Complaint: Chest Pain Stated Complaint: chest pain Time Seen by Provider: 07/14/19 22:40 Mode of Arrival: Family Vehicle Source of Information: Patient, Medical Record Limitations: No Limitations Description of Symptoms (Recalled from ER Triage Doc. by RN): chest pain since yesterday while at work; no particularly over exerting instances, has had no improvement in discomfort since it began. denies soa. states she felt like when she used to have trouble with her heart rate (which she refused an ablation for because she stated it felt better) and goes on to mention that she still smokes 1 ppd despite being diagnosed with a "spot" on her lung back in 2016. no nausea associated with pain. ambulated into ed without difficulty.gcs 15. - History of Present Illness HPI narrative: onset of pressure like chest pain yesterday and again today with sl sob and swollen lower ext - pos tob and relief with pain with ntg in ed MD complaint: chest pain indicative of cardiac Onset (ago): day(s) Duration: intermittent Activity at onset: during rest Pain location: left chest Severity: moderate Quality: tightness Pain radiation: LUE Risk Factors for CAD: Hypertension, Family Hx of CAD, Smoking Treatments prior to or on arrival for Cardiac Chest Pain: none - ARLEEN Score for Non-Stemi Age of Patient: 40-49 years old Heart Rate: 90-109 bpm Systolic Blood Pressure: 140-159 mmHg Serum Creatinine: 0.80-1.19 mg/dl CHF [place] Class: I-No CHF Other Risk Factors: None Non-Stemi Risk Score: 71 - Related Data Prior Cardiac Testing/Procedures: Stress Test On Oral Contraceptives: No Home Medications Medication Instructions Recorded Confirmed Diclofenac Sodium [Voltaren 100gm 2 g TOPICAL QID 11/28/18 07/14/19 Topical Gel] Gabapentin [Gabapentin 300mg Cap] 300 mg PO QHS 07/14/19 07/14/19 Linaclotide [Linzess] 72 mcg PO DAILY 07/14/19 07/14/19 clonazePAM [Clonazepam] 0.5 mg PO BID 07/14/19 07/14/19 Previous Rx's Medication Instructions Recorded oxycodone-acetaminophen 10 mg-325 1 tab PO TID PRN #90 tab 07/10/19 mg tablet Allergies Allergy/AdvReac Type Severity Reaction Status Date / Time paroxetine Allergy Severe S-DIFF. Verified 07/10/19 13:45 BREATHING codeine Allergy Intermediate I-ITCHING Verified 07/10/19 13:45 ketorolac Allergy Intermediate I-HIVES Verified 07/10/19 13:45 latex Allergy Intermediate I-HIVES Verified 07/10/19 13:45 phenytoin AdvReac Severe NA-HALLUCIN Verified 07/10/19 13:45 ATIONS Corticosteroids AdvReac Mild TACHYCARDIA Verified 07/10/19 13:45 (Glucocorticoids) [facility] History - Hepatitis A Screen Drug use history?: No High risk sexual behaviors?: No History of sexually transmitted infection?: No Currently employed?: No Childcare worker?: No Do you have indoor plumbing?: Yes Do you have electricity?: Yes Attestation statement:: This patient has been screened for Hepatitis A risk factors. I have reviewed the patient's past medical history: Yes Medical History: Reports:: Anxiety, Migraine Denies:: Cancer, Diabetes Mellitus Type 1, Diabetes Mellitus Type 2, Internal Pacemaker, MRSA, Seizures Other Medical History: Reports: Arthritis, Fibromyalgia. Denies: Blood Transfusion Reaction Comment: obesity, fibromyalgia Laterality Cases: Left: Arthroscopy Shoulder, Bilateral: Arthroscopy Knee, Carpal Tunnel Release Other Surgeries: Yes: , Hysterectomy-Partial, Tubal Ligation. No: Pacemaker Amputation: No Fractures: No - Social History Smoking Status: Current every day smoker Tobacco Type: cigarettes # Packs/Day (cigarettes): 1 #Yrs smoked (if former smoker): 30 Alcohol Intake: never Substance Use Type: marijuana, opiates Occupational Status: employed Housing: house Household Members: children - Psychiatric History Pschychiatric History:: Reports:: Anxiety Family Hx:: Asthma, Cancer, Diabetes, Heart Attack, Hyperlipidemia, Hypertension ROS Obtained: Yes All systems reviewed & no additional complaints - Constitutional Constitutional: Denies fever(s) - Eyes Eyes: Denies change in vision - ENT Ears, Nose, Mouth, and Throat: Denies sore throat - Cardiovascular Cardiovascular: Reports as per HPI, Reports chest pain, Denies dyspnea, Reports leg edema - Respiratory Respiratory: No cough - Gastrointestinal Gastrointestingal: Denies: abdominal pain - Genitourinary Female Genitourinary: Denies abnormal vaginal bleeding - Musculoskeletal Musculoskeletal: Denies joint pain, Denies joint swelling - Integumentary/Breasts Skin/Breast: Denies rash - Neurologic Neurologic: Denies focal weakness, Denies seizure-like activity Physical Exam - General General appearance: alert, obese - Head Head exam: normocephalic - Eye Eye exam: Present: PERRL, EOMI. Absent: scleral icterus - ENT ENT exam: Present: mucous membranes moist - Neck Neck exam: Present: trachea midline - Respiratory Respiratory exam: Present: normal lung sounds bilaterally. Absent: respiratory distress - Cardiovascular Cardiovascular exam: Present: regular rate, systolic murmur. Absent: rubs, gallop - Abdominal Exam Abdominal exam: Present: soft. Absent: tenderness - Extremities Exam Extremities exam: Present: full ROM, pedal edema. Absent: calf tenderness - Neurological Exam Neurological exam: Present: alert, oriented X3, CN II-XII intact - Psychiatric Psychiatric exam: Present: normal affect - Skin Skin exam: Absent: rash
[2019-07-15 05:01] LABS: Basophils % 0.4 % (0.1-2.0); Eosinophils # 0.3 K/mm3 (0.0-0.4); Eosinophils % 3.5 % (0.1-12.0); Hematocrit 34.2 % (37.0-47.0); Lymphocytes # 3.2 K/mm3 (0.7-4.5); Lymphocytes % 43.8 % (10-50); Mean Corpuscular HGB Conc 32.9 g/dL (31.8-35.4); Mean Corpuscular Volume 94.4 fl (81-99); Mean Platelet Volume 8.3 fl (7.4-10.4); Monocytes # 0.3 K/mm3 (0.1-1.0); Neutrophils # 3.5 K/mm3 (1.8-7.8); Neutrophils % 48.3 % (37.0-80.0); Platelet Count 287 K/mm3 (142-424); Red Blood Count 3.62 M/mm3 (4.20-5.40); Red Cell Distribution Width 13.3 % (11.5-17.5); White Blood Count 7.2 K/mm3 (4.8-10.8)
[2019-07-15 05:02] LABS: Anion Gap 8.4 mEq/L (5-15); Calcium 8.8 mg/dl (8.4-10.2); Chol/HDL Ratio 8.7 (1-3.5)
[2019-07-15 05:07] LABS: Hemoglobin 11.3 g/dL (12.2-16.2)
--- NOTE | 2019-07-15 07:35 | Pharmacy Consult Notes ---
[facility] Pharmacy VTE Monitoring - Patient Demographics Admission date: 07/15/19 Report Date: 07/15/19 Time: 07:35 Allergies/Adverse Reactions: Patient Allergies paroxetine Allergy (Severe, Verified 07/10/19 13:45) S-DIFF. BREATHING codeine Allergy (Intermediate, Verified 07/10/19 13:45) I-ITCHING ketorolac Allergy (Intermediate, Verified 07/10/19 13:45) I-HIVES latex Allergy (Intermediate, Verified 07/10/19 13:45) I-HIVES phenytoin Adverse Reaction (Severe, Verified 07/10/19 13:45) NA-HALLUCINATIONS Corticosteroids (Glucocorticoids) Adverse Reaction (Mild, Verified 07/10/19 13:45) TACHYCARDIA Height: 1.65 m Weight: 92.788 kg Patient Problems: Current Active Problems Obesity (BMI 30-39.9) (Acute) Anxiety (Acute) Chest pain (Acute) Tobacco use (Acute) - VTE Risk Labs: VTE Related Lab Results Hgb 11.3 g/dL (12.2-16.2) L D 07/15/19 04:43 Hct 34.2 % (37.0-47.0) L 07/15/19 04:43 Plt Count 287 K/mm3 (142-424) 07/15/19 04:43 BUN 6 mg/dl (7-17) L 07/15/19 04:43 Creatinine 0.70 mg/dl (0.52-1.04) 07/15/19 04:43 Estimated Creat Clear 147 mL/min (50-200) 07/15/19 04:43 Was VTE Risk Assessment Performed: Yes VTE Score: 4 VTE Risk Level: Low Risk Clinical Trial Participant: No - Prophylaxis Types of VTE Prophylaxis: TEDS Knee High Location of Applied Device: Bilateral Lower Extremeties
--- NOTE | 2019-07-15 09:30 | Consult Report ---
History of Present Illness Consult date: 07/15/19 Requesting physician: Gaudencio Cantor Consult reason: chest pain Chief complaint: chest pain and edema Additional Medical History:: 1. htn 2. atrial tachycardia in the past 3. chf 4. migraines History of present illness: This is a 48-year-old white female who presented to the emergency department with chest pain. She states her chest pain actually started the day before she came to the hospital while she was at work. She states that the chest pain started at rest. She describes it as a tightness in the center of her chest and does radiate to her left arm and underneath her left armpit. She states that nothing worsens the chest pain and nothing really helps to improve it. She denies any shortness of breath associated with the chest pain. She does report having some nausea and diaphoresis associated with the chest pain. The patient states that she went to sleep and woke up again having the chest pain. She states that it was a little bit milder but was still present and that made her very concerned and she came to the emergency department. She states that at its worst her chest pain is at least moderate in intensity. She states that she has noticed worsening bilateral lower extremity edema as well. The patient denies any personal history of coronary artery disease or FL. She states that her father has had 5 myocardial infarctions in the past. She is a 1 pack/day smoker. She did have relief of her chest pain in the emergency department with nitroglycerin. She does report having a history of heart rhythm problems which was most likely an atrial tachycardia. She was supposed to have an ablation for this but decided not to proceed with the procedure and has had no issues with it since that time. She denies any fever, chills, vomiting, diarrhea, PND or orthopnea. [facility] History I have reviewed the patient's past medical history: Yes Medical History: Reports:: Anxiety, Arrhythmia, Congestive Heart Failure, Hypertension, Migraine, Palpitations Denies:: Cancer, Diabetes Mellitus Type 1, Diabetes Mellitus Type 2, Internal Pacemaker, MRSA, Seizures *Have you ever received a pneumonia vaccine?: Yes *Have you received a flu vaccine this season?: No Other Medical History: Reports: Arthritis, Fibromyalgia. Denies: Blood Transfusion Reaction Laterality Cases: Left: Arthroscopy Shoulder, Bilateral: Arthroscopy Knee, Carpal Tunnel Release Other Surgeries: Yes: , Hysterectomy-Partial, Tubal Ligation. No: Pacemaker Amputation: No Fractures: No - *Social History Smoking Status: Current every day smoker Tobacco Type: cigarettes # Packs/Day (cigarettes): 1 #Yrs smoked (if former smoker): 30 Alcohol Intake: never Substance Use Type: marijuana, opiates *Occupational Status:: employed Housing: house Household Members: children *Travel in the last 8 weeks: None - Psychiatric History Pschychiatric History:: Reports:: Anxiety Family Hx:: Asthma, Cancer, Coronary Artery Disease, Diabetes, Heart Attack, Hyperlipidemia, Hypertension Meds Home Medications Medication Instructions Recorded Confirmed Type Diclofenac Sodium [Voltaren 100gm 2 g TOPICAL QID PRN 11/28/18 07/15/19 History Topical Gel] oxycodone-acetaminophen 10 mg-325 1 tab PO TID PRN #90 tab 07/10/19 07/15/19 Rx mg tablet Gabapentin [Gabapentin 300mg Cap] 300 mg PO TID 07/14/19 07/15/19 History Linaclotide [Linzess] 72 mcg PO DAILY PRN 07/14/19 07/15/19 History clonazePAM [Clonazepam] 0.5 mg PO BID 07/14/19 07/15/19 History Allergies Allergy/AdvReac Type Severity Reaction Status Date / Time paroxetine Allergy Severe S-DIFF. Verified 07/10/19 13:45 BREATHING codeine Allergy Intermediate I-ITCHING Verified 07/10/19 13:45 ketorolac Allergy Intermediate I-HIVES Verified 07/10/19 13:45 latex Allergy Intermediate I-HIVES Verified 07/10/19 13:45 phenytoin AdvReac Severe NA-HALLUCIN Verified 07/10/19 13:45 ATIONS Corticosteroids AdvReac Mild TACHYCARDIA Verified 07/10/19 13:45 (Glucocorticoids) Review of Systems - Review of Systems Review of systems:: pertinent systems reviewed and negative unless documented below - Constitutional Reports fatigue - *Cardiovascular Reports chest pain, Reports chest pain at rest, Reports chest pain with activity, Reports leg swelling, Reports radiating jaw, neck or arm pain - *Gastrointestinal Reports nausea - *Neurologic Denies localized weakness, Denies seizure-like activity Exam Vital signs and Labs for Last 24 Hours: Temp Pulse Resp BP Pulse Ox 97.9 F 83 18 88/61 L 94 L 07/15/19 08:00 07/15/19 08:00 07/15/19 08:00 07/15/19 08:00 07/15/19 08:00 Laboratory Results - last 24 hr 07/14/19 22:40: WBC 7.5, RBC 4.03 L, Hgb 12.6, Hct 38.0, MCV 94.4, MCH 31.4 H, MCHC 33.2, RDW 13.4, Plt Count 300, MPV 7.9, Neut % (Auto) 48.1, Lymph % (Auto) 43.1, [place] % (Auto) 4.4, Eos % (Auto) 4.0, Baso % (Auto) 0.4, Neut # (Auto) 3.6, Lymph # (Auto) 3.2, [place] # (Auto) 0.3, Eos # (Auto) 0.3, Baso # (Auto) 0.0 07/14/19 22:40: Sodium 140, Potassium 3.4 L, Chloride 102, Carbon Dioxide 31 H, Anion Gap 10.4, BUN 6 L, Creatinine 0.80, Estimated Creat Clear 128, Estimated GFR 77, Est GFR ( Amer) 93, Glucose 112 H, Calcium 9.3, Troponin I < 0.01 07/15/19 01:37: Troponin I < 0.01 07/15/19 04:43: Troponin I < 0.01 07/15/19 04:43: WBC 7.2, RBC 3.62 L, Hgb 11.3 L D, Hct 34.2 L, MCV 94.4, MCH 31.1, MCHC 32.9, RDW 13.3, Plt Count 287, MPV 8.3, Neut % (Auto) 48.3, Lymph % (Auto) 43.8, [place] % (Auto) 4.0, Eos % (Auto) 3.5, Baso % (Auto) 0.4, Neut # (Auto) 3.5, Lymph # (Auto) 3.2, [place] # (Auto) 0.3, Eos # (Auto) 0.3, Baso # (Auto) 0.0 07/15/19 04:43: Sodium 140, Potassium 3.4 L, Chloride 103, Carbon Dioxide 32 H, Anion Gap 8.4, BUN 6 L, Creatinine 0.70, Estimated Creat Clear 147, Estimated GFR 90, Est GFR ( Amer) 109, Glucose 97, Calcium 8.8, Magnesium 1.7, Triglycerides 259 H, Cholesterol 236 H, LDL Cholesterol Direct 131.13 H, VLDL Cholesterol 52 H, HDL Cholesterol 27 L, Cholesterol/HDL Ratio 8.7 H I & O for Last 24 hours: Intake & Output 07/12/19 07/13/19 07/14/19 07/15/19 23:59 23:59 23:59 23:59 Intake Total 783 / 783 Output Total 2700 / 2700 Balance -1916 / -1916 Weight 203 lb 204 lb 9 oz Narrative: EKG is sinus rhythm with nonspecific ST and T wave abnormalities with a rate of 89. - Constitutional no acute distress, obese - *Routine HEENT Exam Head: Present: normocephalic, atraumatic Eye: Present: EOMI, PERRL ENT: Present: mucous membranes moist - *Routine Neck Exam Present: supple, full ROM, normal carotid upstroke. Absent: JVD, carotid bruit, lymphadenopathy - *Routine Respiratory Exam Present: CTA bilaterally - *Routine Cardiovascular Exam Present: RRR, Normal S1, Normal S2. Absent: murmur, gallop - *Routine Abdominal Exam Present: soft, normoactive bowel sounds. Absent: tenderness, distended - *Routine Extremities Exam Present: full ROM, pulses intact, normal capillary refill. Absent: cyanosis, clubbing, edema - *Routine Skin Exam Present: intact, warm. Absent: erythema, rash - *Routine Neurological Exam Present: alert, oriented X3, CN II-XII intact. Absent: sensory deficit, motor deficit - Routine Psychiatric Exam Present: normal affect, normal thought process Assessment and Plan (1) Angina pectoris Current visit: Yes Status: Acute Category: Medical Code(s): I20.9 - Angina pectoris, unspecified (2) Hypertension Current visit: Yes Status: Chronic Category: Medical Code(s): I10 - Essential (primary) hypertension (3) History of congestive heart failure Current visit: Yes Status: Chronic Category: Medical Code(s): Z86.79 - Personal history of other diseases of the circulatory system (4) Tobacco use Current visit: Yes Status: Chronic Category: Social Hx Code(s): Z72.0 - Tobacco use (5) Family history of ischemic heart disease Current visit: Yes Status: Chronic Category: Medical Code(s): Z82.49 - Family history of ischemic heart disease and other diseases of the circulatory system (6) Lower extremity edema Current visit: Yes Status: Acute Category: Medical Code(s): R60.0 - Localized edema - Assessment and plan all Dx Assessment and Plan for all problems:: Plan: 1. The patient was admitted to the hospital with chest pain and lower extremity edema. The patient states that the symptoms started the day prior to admission while she was at work. The chest pain is occurring at rest. Please see HPI. The patient has ruled out for an FL. The patient has been set up for an echocardiogram to evaluate her LV function and rule out congestive heart failure since she does have a history of this. 2. We will set the patient up for Lexiscan Myoview stress test to rule out ischemia. The patient states that she is unable to walk on the treadmill due to her chest pain and her legs. 3. We will start the patient on aspirin. 4. The patient's blood pressure is on the low side. Unable to add any antianginals at this time. Aspirin 81 mg p.o. daily. 5. LDL goal is less than 100. Her LDL is 131. We will start her on Lipitor 20 mg p.o. daily. 6. Tobacco cessation is highly advised and counseled. 7. Patient does have a history of some sort of atrial tachycardia. She was set up for ablation several years ago for this but did not proceed with the procedure. She has had no issues or episodes of tachycardia or palpitations. 8. Further recommendations will be made pending the patient's response to treatment and the results of her echocardiogram and a Lexiscan Myoview stress test later today. Thank you for the opportunity to help participate in the care of this patient.
--- NOTE | 2019-07-15 16:13 | Electrocardiograph Report ---
APPROVED REPORT Exam: Resting ECG HR:89 bpm ECG Measurements Heart Rate 89 AXES [place] 124 P 17 QRSd 74 QRS 54 QT 388 T-2 QTc 472 <Conclusion> Normal sinus rhythm Nonspecific ST-T wave abnormalities Prolonged QT Abnormal ECG Electronically signed by : Jairo Padron, 07/15/2019 16:13:10
--- NOTE | 2019-07-15 16:23 | History & Physical Report ---
*Admission Date: 07/15/19 *Chief complaint: chest pain *History of present illness: 48-year-old female who presented to the emergency department with chest pain. She states her chest pain actually started the day before she came to the hospital while she was at work. She states that the chest pain started at rest. She describes it as a tightness in the center of her chest and does radiate to her left arm and underneath her left armpit. She states that nothing worsens the chest pain and nothing really helps to improve it. She denies any shortness of breath associated with the chest pain. She does report having some nausea and diaphoresis associated with the chest pain. The patient states that she went to sleep and woke up again having the chest pain. She states that it was a little bit milder but was still present and that made her very concerned and she came to the emergency department. She states that at its worst her chest pain is at least moderate in intensity. She states that she has noticed worsening bilateral lower extremity edema as well. The patient denies any personal hist ory of coronary artery disease or NV. She states that her father has had 5 myocardial infarctions in the past. She is a 1 pack/day smoker. She did have relief of her chest pain in the emergency department with nitroglycerin. She does report having a history of heart rhythm problems which was most likely an atrial tachycardia. She was supposed to have an ablation for this but decided not to proceed with the procedure and has had no issues with it since that time. She denies any fever, chills, vomiting, diarrhea, PND or orthopnea.per cardiology [facility] History I have reviewed the patient's past medical history: Yes Medical History: Reports:: Anxiety, Arrhythmia, Congestive Heart Failure, Hypertension, Migraine, Palpitations Denies:: Cancer, Diabetes Mellitus Type 1, Diabetes Mellitus Type 2, Internal Pacemaker, MRSA, Seizures *Have you ever received a pneumonia vaccine?: Yes *Have you received a flu vaccine this season?: No Other Medical History: Reports: Arthritis, Fibromyalgia. Denies: Blood Transfusion Reaction Laterality Cases: Left: Arthroscopy Shoulder, Bilateral: Arthroscopy Knee, Carpal Tunnel Release Other Surgeries: Yes: , Hysterectomy-Partial, Tubal Ligation. No: Pace maker Amputation: No Fractures: No - *Social History Smoking Status: Current every day smoker Tobacco Type: cigarettes # Packs/Day (cigarettes): 1 #Yrs smoked (if former smoker): 30 Alcohol Intake: never Substance Use Type: marijuana, opiates *Occupational Status:: employed Housing: house Household Members: children *Travel in the last 8 weeks: None - Psychiatric History Pschychiatric History:: Reports:: Anxiety Family Hx:: Asthma, Cancer, Coronary Artery Disease, Diabetes, Heart Attack, Hyperlipidemia, Hypertension Review of Systems - Review of Systems Review of systems:: unable to obtain - Constitutional Denies body ache(s) - Eyes Denies floaters - ENT Denies bleeding gums - *Cardiovascular Reports chest pain, Reports chest pain at rest, Reports chest pain with activity, Reports shortness of breath, Reports irregular heart rhythm - *Respiratory Denies change in phlegm color, Denies shortness of breath - *Gastrointestinal Denies belching - *Genitourinary Denies side pain - *Musculoskeletal Denies muscle cramps - Integumentary/Breasts Denies rash - *Neurologic Denies localized weakness, Denies seizure-like activity - Psychiatric Reports anxiety, Denies lack of enjoyment - Endocrine Denies flushing - Hematologic/Lymphatic Denies enlarged lymph nodes Meds Home Medications Medication Instructions Recorded Confirmed Type Diclofenac Sodium [Voltaren 100gm 2 g TOPICAL QID PRN 11/28/18 07/15/19 History Topical Gel] oxycodone-acetaminophen 10 mg-325 1 tab PO TID PRN #90 tab 07/10/19 07/15/19 Rx mg tablet Gabapentin [Gabapentin 300mg Cap] 300 mg PO TID 07/14/19 07/15/19 History Linaclotide [Linzess] 72 mcg PO DAILY PRN 07/14/19 07/15/19 History clonazePAM [Clonazepam] 0.5 mg PO BID 07/14/19 07/15/19 History Allergies Allergy/AdvReac Type Severity Reaction Status Date / Time paroxetine Allergy Severe S-DIFF. Verified 07/10/19 13:45 BREATHING codeine Allergy Intermediate I-ITCHING Verified 07/10/19 13:45 ketorolac Allergy Intermediate I-HIVES Verified 07/10/19 13:45 latex Allergy Intermediate I-HIVES Verified 07/10/19 13:45 phenytoin AdvReac Severe NA-HALLUCIN Verified 07/10/19 13:45 ATIONS Corticosteroids AdvReac Mild TACHYCARDIA Verified 07/10/19 13:45 (Glucocorticoids) Exam Vital signs and Labs for Last 24 Hours: Temp Pulse Resp BP Pulse Ox 98 F 87 18 139/71 97 07/15/19 15:07 07/15/19 15:07 07/15/19 15:07 07/15/19 15:07 07/15/19 15:07 Laboratory Results - last 24 hr 07/14/19 22:40: WBC 7.5, RBC 4.03 L, Hgb 12.6, Hct 38.0, MCV 94.4, MCH 31.4 H, MCHC 33.2, RDW 13.4, Plt Count 300, MPV 7.9, Neut % (Auto) 48.1, Lymph % (Auto) 43.1, [place] % (Auto) 4.4, Eos % (Auto) 4.0, Baso % (Auto) 0.4, Neut # (Auto) 3.6, Lymph # (Auto) 3.2, [place] # (Auto) 0.3, Eos # (Auto) 0.3, Baso # (Auto) 0.0 07/14/19 22:40: Sodium 140, Potassium 3.4 L, Chloride 102, Carbon Dioxide 31 H, Anion Gap 10.4, BUN 6 L, Creatinine 0.80, Estimated Creat Clear 128, Estimated GFR 77, Est GFR ( Amer) 93, Glucose 112 H, Calcium 9.3, Troponin I < 0.01 07/15/19 01:37: Troponin I < 0.01 07/15/19 04:43: Troponin I < 0.01 07/15/19 04:43: WBC 7.2, RBC 3.62 L, Hgb 11.3 L D, Hct 34.2 L, MCV 94.4, MCH 31.1, MCHC 32.9, RDW 13.3, Plt Count 287, MPV 8.3, Neut % (Auto) 48.3, Lymph % (Auto) 43.8, [place] % (Auto) 4.0, Eos % (Auto) 3.5, Baso % (Auto) 0.4, Neut # (Auto) 3.5, Lymph # (Auto) 3.2, [place] # (Auto) 0.3, Eos # (Auto) 0.3, Baso # (Auto) 0.0 07/15/19 04:43: Sodium 140, Potassium 3.4 L, Chloride 103, Carbon Dioxide 32 H, Anion Gap 8.4, BUN 6 L, Creatinine 0.70, Estimated Creat Clear 147, Estimated GFR 90, Est GFR ( Amer) 109, Glucose 97, Calcium 8.8, Magnesium 1.7, Triglycerides 259 H, Cholesterol 236 H, LDL Cholesterol Direct 131.13 H, VLDL Cholesterol 52 H, HDL Cholesterol 27 L, Cholesterol/HDL Ratio 8.7 H I & O for Last 24 hours: Intake & Output 07/13/19 07/14/19 07/15/19 07/16/19 11:59 11:59 11:59 11:59 Intake Total 783 / 783 Output Total 2700 / 2700 Balance -1916 / -1916 Weight 204 lb 9 oz - Constitutional no acute distress - *Routine HEENT Exam Head: Present: normocephalic Eye: Present: PERRL ENT: Present: mucous membranes moist - *Routine Neck Exam Present: supple. Absent: lymphadenopathy - *Routine Respiratory Exam Present: CTA bilaterally - *Routine Cardiovascular Exam Present: RRR - *Routine Abdominal Exam Present: soft, normoactive bowel sounds. Absent: tenderness - *Routine Extremities Exam Present: edema. Absent: cyanosis, clubbing - *Routine Skin Exam Present: warm. Absent: rash - *Routine Neurological Exam Present: alert, oriented X3 - Routine Psychiatric Exam Present: normal affect Assessment and Plan (1) Angina pectoris Current visit: Yes Status: Acute Category: Medical Code(s): I20.9 - Angina pectoris, unspecified (2) Hypertension Current visit: Yes Status: Chronic Category: Medical Code(s): I10 - Essential (primary) hypertension (3) History of congestive heart failure Current visit: Yes Status: Chronic Category: Medical Code(s): Z86.79 - Personal history of other diseases of the circulatory system (4) Tobacco use Current visit: Yes Status: Chronic Category: Social Hx Code(s): Z72.0 - Tobacco use (5) Family history of ischemic heart disease Current visit: Yes Status: Chronic Category: Medical Code(s): Z82.49 - Family history of ischemic heart disease and other diseases of the circulatory system (6) Lower extremity edema Current visit: Yes Status: Acute Category: Medical Code(s): R60.0 - Localized edema - Assessment and plan all Dx Assessment and Plan for all problems:: rounded with dr thornton all orders per dr hagan
--- NOTE | 2019-07-16 07:51 | Progress Note ---
Subjective Date: 07/16/19 Time: 07:47 Principal diagnosis: chest pain Interval history: 48 yo WF in bed in NAD. Some chest pain this AM that is similar to pain on admission but not as severe. She did receive relief with nitroglycerin tablets in the ER on admission but due to the headache from the nitroglycerin paste it was stopped. Patient's stress test returned abnormal yesterday with anterior ischemia. I did discuss the results and recommendation for left heart catheterization with the patient. All questions answered. Exam Vital signs and Labs for Last 24 Hours: Temp Pulse Resp BP Pulse Ox 98.1 F 88 16 107/63 L 91 L 07/16/19 04:00 07/16/19 04:00 07/16/19 04:00 07/16/19 04:00 07/16/19 04:00 I & O for Last 24 hours: Intake & Output 07/13/19 07/14/19 07/15/19 07/16/19 11:59 11:59 11:59 11:59 Intake Total 783 / 783 400 / 400 Output Total 2700 / 2700 700 / 700 Balance -1917 / -1917 -300 / -300 Weight 204 lb 9 oz 206 lb 3 oz - *Routine HEENT Exam Head: Present: normocephalic Eye: Present: EOMI, PERRL ENT: Present: mucous membranes moist - *Routine Respiratory Exam Present: CTA bilaterally, diminished air movement. Absent: accessory muscle use, rales, rhonchi, wheezes - *Routine Cardiovascular Exam Present: RRR. Absent: murmur, gallop, rubs - *Routine Extremities Exam Absent: edema, calf tenderness - *Routine Neurological Exam Present: alert, oriented X3, moving all extremities Progress Note: A&P (1) Angina pectoris Status: Acute Current Visit: Yes (2) Hypertension Status: Chronic Current Visit: Yes (3) History of congestive heart failure Status: Chronic Current Visit: Yes (4) Tobacco use Status: Chronic Current Visit: Yes (5) Family history of ischemic heart disease Status: Chronic Current Visit: Yes (6) Lower extremity edema Status: Acute Current Visit: Yes (7) Abnormal cardiovascular stress test Status: Acute Current Visit: Yes Assessment and Plan for All Diagnoses:: 1. Sublingual nitroglycerin this morning did help with chest pain. We will repeat nitroglycerin paste this morning and load with Brilinta 180 mg daily and give her aspirin this morning. Patient has borderline low blood pressure so will not give any additional medications other than above. Patient is scheduled for cardiac catheterization this a.m. 2. Further recommendations to follow pending above results 3. CT of the chest did show evidence of COPD with groundglass changes in the upper lobes. There is history of a right lung nodule that is slightly larger on this scan compared with 2016 scan. She does report evaluation by Dr. Castaneda of pulmonary in 2016 with a PET scan that showed no evidence of malignancy.
--- NOTE | 2019-07-16 08:55 | Cardiology Report ---
APPROVED REPORT Exam: Pharmacologic Technologist: Kristin Gupta, Ht: 5 ft 5 in Wt: 200 lbs BSA: 1.98 m2 HR: 77 bpm BP: 124/63 mmHg Rhythm: NRS,NORMAL Medical History Medical History: Hyperlipidemia Medications: Asa,,,,, Gabapentin,,,,, ClonAZEPAM,,,,, KloNOPIN,,,,, OxYCODONE,,,,, LiNZESS,,,,, Atorvastatin.,,,,, Allergies: PAROXETINE,KETOROLAC,LATEX,PHENYTOIN Cardiac Risk Factors: FHX of CAD, Hyperlipidemia Stress Test Details Test: LEXISCAN HR Resting HR: 70 bpmMax Heart Rate (APMHR): 174 bpm Max HR Achieved: 132 bpmTarget HR (85% APMHR): 147 bpm % of APMHR: 75 Recovery HR: 104 bpm BP Resting BP: 124.0/63.0 mmHg Max BP: 148.0/74.0 mmHg Recovery BP: 142.0/76.0 mmHg ECG Resting ECG: NORMAL SINUS RHYTHM,NORMAL Clinical Exercise duration: 04:20 min Highest Stage Achieved: Exercise capacity: 1.0 METs Stress ECG Conclusion DURING INFUSION OF LEXISCAN PATIENT HAD SOA,MALAISE,STOMACH DISCOMFORT AND MILD CHEST DISCOMFORT. SINUS TACH WITH 55 BEAT INCREASE IN HEART RATE. INFERIOR AND ANTEROLATERAL T WAVE INVERSION INITIALLY FOLLOWED BY 1.[address] DEPRESSION INFERIORLY AND 1MM HORIZONT[address] ST DEPRESSION ANTEROLATERALLY. EKG CHANGES POSITIVE FOR ISCHEMIA WITH LEXISCAN STRESS. MYOVIEW IMAGES REPORTED SEPARATELY. Test Summary NZYVROXK30:00..84.144/ 80.. REST.......Sitting REST30:10..70.... Stage 1.......Cardiolite injected Stage 101:00..118.... Stage 201:00..130.128/ 73.. Stage 301:00..123.147/ 77.. Stage 401:00..112.148/ 74.. Stage 401:20..114.146/ 75.Stop exercise at 04:20 VSEYXSLZ16:00..112.... IPFFIRWX95:00..101.142/ 76.. IUXCLTOK18:00..99.144/ 80.. QTKFBFIM21:00..84.144/ 80.. AKVWOCGX10:00..87.138/ 72.. BTWCHLLI64:41..88.132/ 71.. Electronically signed by : Victorino Guajardo, 07/16/2019 08:55:35
--- NOTE | 2019-07-16 13:09 | Discharge Summary ---
General - General Admission date:: 07/15/19 Discharge date: 07/16/19 HPI HPI: 48-year-old female who presented to the emergency department with chest pain. She states her chest pain actually started the day before she came to the hospital while she was at work. She states that the chest pain started at rest. She describes it as a tightness in the center of her chest and does radiate to her left arm and underneath her left armpit. She states that nothing worsens the chest pain and nothing really helps to improve it. She denies any shortness of breath associated with the chest pain. She does report having some nausea and diaphoresis associated with the chest pain. The patient states that she went to sleep and woke up again having the chest pain. She states that it was a little bit milder but was still present and that made her very concerned and she came to the emergency department. She states that at its worst her chest pain is at least moderate in intensity. She states that she has noticed worsening bilateral lower extremity edema as well. The patient denies any personal history of coronary artery disease or NV. She states that her father has had 5 myocardial infarctions in the past. She is a 1 pack/day smoker. She did have relief of her chest pain in the emergency department with nitroglycerin. She does report having a history of heart rhythm problems which was most likely an atrial tachycardia. She was supposed to have an ablation for this but decided not to proceed with the procedure and has had no issues with it since that time. She denies any fever, chills, vomiting, diarrhea, PND or orthopnea.per card iology Hospital Course Hospital Course: Laboratory Results - last 72 hr 07/14/19 07/14/19 07/15/19 22:40 22:40 01:37 WBC 7.5 RBC 4.03 L Hgb 12.6 Hct 38.0 MCV 94.4 MCH 31.4 H MCHC 33.2 RDW 13.4 Plt Count 300 MPV 7.9 Neut % (Auto) 48.1 Lymph % (Auto) 43.1 [place] % (Auto) 4.4 Eos % (Auto) 4.0 Baso % (Auto) 0.4 Neut # (Auto) 3.6 Lymph # (Auto) 3.2 [place] # (Auto) 0.3 Eos # (Auto) 0.3 Baso # (Auto) 0.0 Sodium 140 Potassium 3.4 L Chloride 102 Carbon Dioxide 31 H Anion Gap 10.4 BUN 6 L Creatinine 0.80 Estimated Creat Clear 128 Estimated GFR 77 Est GFR ( Amer) 93 Glucose 112 H Calcium 9.3 Magnesium Troponin I < 0.01 < 0.01 Triglycerides Cholesterol LDL Cholesterol Direct VLDL Cholesterol HDL Cholesterol Cholesterol/HDL Ratio 07/15/19 07/15/19 07/15/19 04:43 04:43 04:43 WBC 7.2 RBC 3.62 L Hgb 11.3 L D Hct 34.2 L MCV 94.4 MCH 31.1 MCHC 32.9 RDW 13.3 Plt Count 287 MPV 8.3 Neut % (Auto) 48.3 Lymph % (Auto) 43.8 [place] % (Auto) 4.0 Eos % (Auto) 3.5 Baso % (Auto) 0.4 Neut # (Auto) 3.5 Lymph # (Auto) 3.2 [place] # (Auto) 0.3 Eos # (Auto) 0.3 Baso # (Auto) 0.0 Sodium 140 Potassium 3.4 L Chloride 103 Carbon Dioxide 32 H Anion Gap 8.4 BUN 6 L Creatinine 0.70 Estimated Creat Clear 147 Estimated GFR 90 Est GFR ( Amer) 109 Glucose 97 Calcium 8.8 Magnesium 1.7 Troponin I < 0.01 Triglycerides 259 H Cholesterol 236 H LDL Cholesterol Direct 131.13 H VLDL Cholesterol 52 H HDL Cholesterol 27 L Cholesterol/HDL Ratio 8.7 H cath reports: ANGIOGRAPHIC RESULTS The left main artery Normal The left anterior descending artery Normal The circumflex artery Normal The right coronary artery Dominant normal The BRIGHT ventriculogram reveals Slightly hyperdynamic 75% The left ventricular end-diastolic pressure 30 mmHg IMPRESSION Normal coronary arteries Slightly hyperdynamic ejection fraction consistent with hypertensive heart disease with accompanying diastolic dysfunction PLAN 1. Treatment of underlying diastolic dysfunction ct chest: IMPRESSION: 1. Changes of COPD with a mosaic ground-glass attenuation in the upper lobes which appear stable compared to 05/17/2015 and may represent sequela from interstitial lung disease/smoking related lung disease. 2. Noncalcified right lower lobe nodule at 2.4 cm. This has slightly increased in size since 05/17/2015. One would expect a much more greater increase in size if this were malignancy however, an indolent neoplasm is not excluded. PET CT may provide further evaluation if not already performed. Conclusion: EF 64% Fixed defect in the apex with decrease activity in the anterior wall which improves with rest suggesting an area of infarction at apex with jasmyn infarct ischemia of anterior wall chest x ray: IMPRESSION: Right upper lobe nodule versus prominent rib end. 7 mm left upper lobe nodule. add spirodactone 25mg po daily Objective Vital signs: Temp Pulse Resp BP Pulse Ox 97.7 F 58 L 16 116/66 97 07/16/19 08:00 07/16/19 12:55 07/16/19 12:55 07/16/19 12:55 07/16/19 12:55 no acute distress - *Routine HEENT Exam Head: Present: normocephalic Eye: Present: PERRL ENT: Present: mucous membranes moist - *Routine Neck Exam Present: supple - *Routine Respiratory Exam Present: CTA bilaterally, wheezes Comments: clears with cough - *Routine Cardiovascular Exam Present: RRR - *Routine Abdominal Exam Present: soft, normoactive bowel sounds. Absent: tenderness - *Routine Extremities Exam Absent: cyanosis, clubbing, edema - *Routine Skin Exam Present: warm. Absent: rash - *Routine Neurological Exam Present: alert, oriented X3 - Routine Psychiatric Exam Present: normal affect Results - Additional Comments rounded with bentley all orders per bentley DS: Diagnosis - Discharge Diagnosis (1) Angina pectoris Status: Acute (2) Hypertension Status: Chronic (3) History of congestive heart failure Status: Chronic (4) Tobacco use Status: Chronic (5) Family history of ischemic heart disease Status: Chronic (6) Lower extremity edema Status: Acute (7) Abnormal cardiovascular stress test Status: Acute Discharge Plan - Patient Discharge Instructions ACTIVITY: Continue current activity DIET: continue same diet Patient Instructions: Heart-Healthy Diet, DI for Angina, DI for Cardiac Catheterization, DI for Surgical Site Infection - Follow up Plan Follow up with: Victorino Guajardo MD [Staff Physician] - Gaudencio Cantor MD [Primary Care Provider] - Disposition: Home, Self-[facility] Medications: Home Medications Medication Instructions Recorded Confirmed Type Diclofenac Sodium [Voltaren 100gm 2 g TOPICAL QID PRN 11/28/18 07/15/19 History Topical Gel] oxycodone-acetaminophen 10 mg-325 1 tab PO TID PRN #90 tab 07/10/19 07/15/19 Rx mg tablet Gabapentin [Gabapentin 300mg Cap] 300 mg PO TID 07/14/19 07/15/19 History Linaclotide [Linzess] 72 mcg PO DAILY 07/14/19 07/15/19 History clonazePAM [Clonazepam] 0.5 mg PO BID 07/14/19 07/15/19 History Spironolactone [Aldactone 25mg 25 mg PO DAILY 30 Days #30 tab 07/16/19 Rx Tab] Prescriptions/Medication Reconciliation: New Spironolactone [Aldactone 25mg Tab] 25 mg PO DAILY 30 Days #30 tab Continued oxycodone-acetaminophen 10 mg-325 mg tablet 1 tab PO TID PRN #90 tab PRN Reason: pain Diclofenac Sodium [Voltaren 100gm Topical Gel] 2 g TOPICAL QID PRN PRN Reason: pain Linaclotide [Linzess] 72 mcg PO DAILY clonazePAM [Clonazepam] 0.5 mg PO BID Gabapentin [Gabapentin 300mg Cap] 300 mg PO TID - Problem Reconciliation Problems Reviewed?: Yes
[2019-07-16 16:27] VITALS: BP 115/67
== END 2019-07-16 16:21 | disposition home or self-care (01) ==
LOC: ER 22:38 → 2ND 22:38
PROVIDERS: ADMIT Emergency Medicine; ATTEND Emergency Medicine
CPT/HCPCS: 36415; 71020; 71046; 71250; 78452; 80048; 80061; 83735; 84484; 85025; 90686; 93005; 93017; 93306; 93458; 96365; 96375; 99152; 99284; A9502; C1725; C1769; G0378; J1644; J2405; J2785; Q9967

== ENCOUNTER 2020-01-25 15:44 | Emergency (ER) | payer MEDICARE, OTHER, SELFPAY ==
[2020-01-25 15:59] VITALS: BP 133/83; PULSE 101; RESP 18; TEMP 36.8; O2SAT 100; BMI 34.1
--- NOTE | 2020-01-25 16:11 | HMH.EDUTC ---
[facility] [place] Disposition Clinical Impression: Cellulitis Qualifiers: Site of cellulitis: extremity Site of cellulitis of extremity: lower extremity Laterality: unspecified laterality Qualified Code(s): L03.119 - Cellulitis of unspecified part of limb Disposition: Home, Self-Care Condition on Discharge: Good Instructions: Cellulitis, DI for Dependent Edema, Cephalexin Additional Instructions: Take medication as prescribed *GO home and elevate feet as you was advised in the clinic today to help with swelling in ankles and feet Follow up with Family Doctor if no improvement or any worsen of symptoms Straight to ER if any life threatening symptoms, shortness of breath, or worsening of swelling Return if needed Call Cardiology clinic and make appointment for follow up as you was directed previously Prescriptions: cephALEXin [Keflex 500mg Cap] 500 mg PO Q6H 7 Days #28 cap Transmission Status: Received by [facility] Referrals: Gaudencio Cantor MD [Primary Care Provider] - As needed Forms: Work/School Release Time of Disposition: 16:33 Medical Decision Making - Angelito Inquiry Pt receiving controlled substance: No Angelito was queried for this patient: No Vital Signs: 01/25/20 15:59 01/25/20 16:38 Temperature 98.2 F 98.2 F Temperature Source Oral Pulse Rate 101 H Pulse Rate [Right Brachial] 101 H Respiratory Rate 18 18 Blood Pressure 133/83 Blood Pressure [Right Arm] 133/83 Blood Pressure Mean [Right Arm] 99 Blood Pressure Source [Right Arm] Automatic Cuff Blood Pressure Position [Right Arm] Sitting 02 Sat by Pulse Oximetry 100 Oxygen Delivery Method Room Air Medical Decision Narrative: Patient states that she has taken Keflex before without reaction or complications, spoke with staff at Cardiology Clinic and advised that she needed to call office for appointment and patient agreed. Patient educated to go home and elevate legs to help with swelling and take medication as prescribed for Cellulitis and follow up with PCP or Cardiology if no improvement and immediately to the ED if any shortness of breath or worsening of swelling [facility] [place] HPI - General Stated complaint: Swelling of feet, pain from knees down to feet Time Seen by Provider: 01/25/20 16:00 Mode of Arrival: Ambulatory Source of Information: Patient Limitations: No Limitations Description of Symptoms (Recalled from Triage Doc. by RN): PATIENT C/O PAIN AND SWELLING TO BLE X APPROX 1 WEEK HEENT Symptoms (Recalled from RN notes): No Resp Symptoms (Recalled from RN notes): No Skin Symptoms (Recalled from RN notes): No MS Symptoms (Recalled from RN notes): Yes Functional Status (Recalled from RN notes): WNL - History of Present Illness Provider Complaint: Patient states that she noticed some mild swelling and redness on bilateral lower legs on and off for about a week States that she noticed it looked like red rash that hurt when she would touch it and looked like she was starting to have some swelling Denies shortness of breath, denies chest pain - Related Data Home Medications Medication Instructions Recorded Confirmed Diclofenac Sodium [Voltaren 100gm 2 g TOPICAL QID PRN 11/28/18 01/18/20 Topical Gel] Linaclotide [Linzess] 72 mcg PO DAILY 07/14/19 01/18/20 Previous Rx's Medication Instructions Recorded Spironolactone [Aldactone 25mg 25 mg PO DAILY 30 Days #30 tab 07/16/19 Tab] gabapentin 300 mg capsule 300 mg PO TID #45 cap 12/28/19 clonazepam 0.5 mg tablet 0.5 mg PO BID #60 tab 01/18/20 oxycodone-acetaminophen 10 mg-325 1 tab PO TID PRN #90 tab 01/18/20 mg tablet cephALEXin [Keflex 500mg Cap] 500 mg PO Q6H 7 Days #28 cap 01/25/20 Allergies Allergy/AdvReac Type Severity Reaction Status Date / Time paroxetine Allergy Severe S-DIFF. Verified 01/18/20 15:52 BREATHING codeine Allergy Intermediate I-ITCHING Verified 01/18/20 15:52 ketorolac Allergy Intermediate I-HIVES Verified 01/18/20 15:52 latex Al
[2020-01-25 16:38] VITALS: BP 133/83; PULSE 101; RESP 18; TEMP 36.8; O2SAT 100
== END 2020-01-25 16:40 | disposition home or self-care (01) ==
PROVIDERS: Emergency Provider Nurse Practitioner; PCP Emergency Medicine
DX: L03.115 Cellulitis of right lower limb (principal); L03.116 Cellulitis of left lower limb; I10 Essential (primary) hypertension; G43.709 Chronic migraine without aura, not intractable, without status migrainosus; F41.9 Anxiety disorder, unspecified; F17.210 Nicotine dependence, cigarettes, uncomplicated; F12.10 Cannabis abuse, uncomplicated; Z79.899 Other long term (current) drug therapy; Z91.040 Latex allergy status; Z88.8 Allergy status to other drugs, medicaments and biological substances
CPT/HCPCS: 99201

== ENCOUNTER 2020-01-28 12:57 | Emergency (ER) | payer MEDICARE, OTHER, SELFPAY ==
[2020-01-28 13:00] VITALS: BP 138/54; PULSE 114; RESP 19; TEMP 37.1; O2SAT 97; BMI 33.7
--- NOTE | 2020-01-28 13:21 | XR_ITS ---
PROCEDURE: CR XR WRIST RT MIN 3V from 04/30/2019 CR XR HAND RT 2V from 01/28/2020 XR WRIST RT 2V Referring Doctor: Randy Caal Patient Age:49Y CLINICAL INDICATION: fall/pain pain most pronounced at the 5th finger and ulnar aspect of hand COMPARISON: CR XR WRIST LT MIN 3V from 04/30/2019 CR XR WRIST RT MIN 3V from 04/30/2019 CR XR HAND RT 2V from 01/28/2020 FINDINGS: RIGHT WRIST three views. AP lateral and oblique. The right wrist is intact with no acute fracture or dislocation. No wrist joint effusion evident/pronator quadratus fat plane appears normal anteriorly. The previous left wrist from April 2019 is useful to confirm symmetry. Would note patient has a generous size, generous length scaphoid bilaterally but this is symmetric. RIGHT HAND THREE views:. AP lateral, oblique. Acute fracture involving base of the proximal phalanx 5th finger. Fracture line transverses proximal metaphysis with cortical offset is most evident ulnar ulnar aspect of this fracture and associated with ulnar tilt of the distal fracture fragment. However also note a longitudinal component, extending from this proximally from this transverse fracture and passing through the mid articular surface at base proximal phalanx. FormingT or Y type fracture. Only subtle cortical offset at the proximal articular surface. The metacarpals are all intact. The remaining fingers are intact but there may be some minor degenerative changes at the DIP joints and IP joint the thumb. Soft tissue swelling throughout the ulnar aspect of the hand also noted. IMPRESSION: Y shape fracture involving the base proximal phalanx 5th finger. This includes fracture line passing through the mid articular surface at base of 5th proximal phalanx Dictated by: Tarik Tavera MD 01/28/2020 15:58 Tarik Tavera MD in [facility] 01/28/2020 15:58
--- NOTE | 2020-01-28 13:21 | XR_ITS ---
PROCEDURE: XR HAND RT 2V CLINICAL INDICATION: fall/pain COMPARISON: No exams were available for comparison FINDINGS: No fracture or dislocation. No lytic or blastic change. There is normal mineralization. There is mild generalized soft tissue swelling of the hand. The joint spaces are well-preserved. No significant degenerative/arthritic changes. No erosive changes evident. Other findings:None. IMPRESSION: Mild diffuse soft tissue swelling, negative for acute fracture Dictated by: Dr. Jarred Antunez MD 01/29/2020 07:34 Dr. Jarred Antunez MD in [facility] 01/29/2020 07:34
--- NOTE | 2020-01-28 13:21 | XR_ITS ---
PROCEDURE: XR FOREARM RT 2V Referring Doctor: Randy Caal Patient Age:49Y CLINICAL INDICATION: fall/pain pain at medial aspect of hand small finger and forearm COMPARISON: No exams were available for comparison FINDINGS: Right forearm AP lateral view. Right forearm intact with no fracture or dislocation. No lytic or blastic change. There is normal mineralization.. The two views of elbow included show no fracture or effusion at included right elbow IMPRESSION: Right forearm intact but no fracture Dictated by: Tarik Tavera MD 01/28/2020 15:45 Tarik Tavera MD in [facility] 01/28/2020 15:45
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
[2020-01-28 14:03] VITALS: BP 113/63; PULSE 83; RESP 18; TEMP 36.6; O2SAT 99
== END 2020-01-28 14:16 | disposition home or self-care (01) ==
PROVIDERS: Emergency Provider Emergency Medicine; PCP Emergency Medicine
DX: S62.646A Nondisplaced fracture of proximal phalanx of right little finger, initial encounter for closed fracture (principal); W01.198A Fall on same level from slipping, tripping and stumbling with subsequent striking against other object, initial encounter; Y92.89 Other specified places as the place of occurrence of the external cause; I10 Essential (primary) hypertension; M79.7 Fibromyalgia; G43.709 Chronic migraine without aura, not intractable, without status migrainosus; F17.210 Nicotine dependence, cigarettes, uncomplicated; Z91.040 Latex allergy status; Z88.5 Allergy status to narcotic agent; Z88.8 Allergy status to other drugs, medicaments and biological substances
CPT/HCPCS: 73090; 73100; 73120; 99282; 99283

== ENCOUNTER → 2020-02-17 13:44 | Outpatient (CLI) | payer MEDICARE, OTHER, SELFPAY ==
--- NOTE | 2020-02-17 13:48 | XR_ITS ---
PROCEDURE: XR HAND RT MIN 3V CLINICAL INDICATION: rt small digit fracture; out of splint Follow-up fracture COMPARISON: CR XR HAND RT 2V from 01/28/2020 FINDINGS: Comminuted fracture involves the proximal aspect of the proximal phalanx of the 5th finger with minimal impaction and separation of the fracture fragments. There is mild dorsal angulation of the distal fracture fragment. The fracture site is somewhat less distinct suggesting underlying healing. The joint spaces are well-preserved. No significant degenerative/arthritic changes. No erosive changes evident. Other findings:None. IMPRESSION: Healing comminuted interarticular fracture of the proximal phalanx of the 5th digit Dictated by: Edison Bellamy MD 02/17/2020 15:27 Edison Bellamy MD in [facility] 02/17/2020 15:27
== END ==
PROVIDERS: PCP Emergency Medicine; Visit Provider Orthopaedic Surgery
DX: S62.609A Fracture of unspecified phalanx of unspecified finger, initial encounter for closed fracture (principal)
CPT/HCPCS: 73130

== ENCOUNTER → 2020-05-24 13:22 | Outpatient (CLI) | payer MEDICARE, OTHER, SELFPAY ==
--- NOTE | 2020-05-24 13:33 | XR_ITS ---
PROCEDURE: XR FOOT WT BEARING LT 3V CLINICAL INDICATION: pain COMPARISON: No exams were available for comparison FINDINGS: No fracture or dislocation. No lytic or blastic change. There is normal mineralization. The joint spaces are well-preserved. No significant degenerative/arthritic changes. No erosive changes evident. Other findings:There is a type 2 os navicularis. IMPRESSION: No acute findings. Dictated by: Edison Bellamy MD 05/24/2020 14:56 Edison Bellamy MD in [facility] 05/24/2020 14:56
--- NOTE | 2020-05-24 13:33 | XR_ITS ---
PROCEDURE: XR FOOT WT BEARING RT 3V CLINICAL INDICATION: pain COMPARISON: No exams were available for comparison FINDINGS: No fracture or dislocation. No lytic or blastic change. There is normal mineralization. The joint spaces are well-preserved. No significant degenerative/arthritic changes. No erosive changes evident. Other findings:There is a 1 os navicularis. IMPRESSION: No acute findings. Dictated by: Edison Bellamy MD 05/24/2020 14:56 Edison Bellamy MD in [facility] 05/24/2020 14:56
== END ==
PROVIDERS: PCP Emergency Medicine; Visit Provider Podiatrist
DX: M79.672 Pain in left foot (principal); M79.671 Pain in right foot
CPT/HCPCS: 73630

== ENCOUNTER 2020-06-10 19:00 | Emergency (ER) | payer OTHER, MEDICARE, SELFPAY ==
[2020-06-10 19:08] VITALS: BP 168/91; PULSE 121; RESP 14; TEMP 36.8; O2SAT 97
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
[2020-06-10 19:23] VITALS: BMI 32.9
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
[2020-06-10 19:31] LABS: Basophils # 0.1 K/mm3 (0-0.2); Basophils % 0.6 % (0.1-2.0); Eosinophils # 0.3 K/mm3 (0.0-0.4); Eosinophils % 2.7 % (0.1-12.0); Hematocrit 38.7 % (37.0-47.0); Hemoglobin 12.8 g/dL (12.2-16.2); Lymphocytes # 4.1 K/mm3 (0.7-4.5); Lymphocytes % 34.5 % (10-50); Mean Corpuscular Volume 93.9 fl (81-99); Mean Platelet Volume 7.6 fl (7.4-10.4); Monocytes # 0.5 K/mm3 (0.1-1.0); Monocytes % 3.8 % (1.7-9.3); Neutrophils % 58.4 % (37.0-80.0); Platelet Count 281 K/mm3 (142-424); Red Blood Count 4.12 M/mm3 (4.20-5.40); Red Cell Distribution Width 13.5 % (11.5-17.5)
[2020-06-10 19:40] LABS: Alanine Aminotransferase 16 U/L (12-78); Albumin Level 4.5 g/dl (3.5-5.0); Alkaline Phosphatase 68 U/L (38-126); Anion Gap 7.9 mEq/L (5-15); Aspartate Amino Transferase 34 U/L (14-36); Bilirubin,Indirect 0.3 mg/dL (0.0-0.9); Bilirubin,Total 0.3 mg/dl (0.2-1.3); Bilirubin,Unconjugated 0.2 mg/dL (0.0-1.1); Blood Urea Nitrogen 8 mg/dl (7-17); Calcium 9.7 mg/dl (8.4-10.2); Carbon Dioxide 34 mmol/L (22.0-30.0); Chloride 102 mmol/L (98-107); Creatinine Clearance Estimated 141 mL/min (50-200); Estimated Glomerular Filt Rate 90 ml/min (>60); GFR (African American) 109 ML/MIN (>60); Glucose 116 mg/dl (74-100); Potassium 3.9 mmoL/L (3.5-5.1); Sodium 140 mmol/L (136-145); Total Protein,Serum 7.9 g/dl (6.3-8.2)
--- NOTE | 2020-06-10 19:46 | PC.NURSE ---
pt gone to rad
--- NOTE | 2020-06-10 20:55 | PC.NURSE ---
cervical collar removed. pt up to bathroom
[2020-06-10 21:04] LABS: Microscopic, Urine URINE MICROSCOPIC (MICROSCOPIC)
[2020-06-10 21:22] LABS: Appearance,Urine CLEAR (Clear); Bilirubin,Urine Negative (Negative); Blood, Urine 1+ (Negative); Color,Urine YELLOW (Yellow); Glucose,Urine (UA) Negative (Negative); Ketones,Urine Negative (Negative); Leukocyte Esterase,Urine Negative (Negative); Nitrate,Urine Negative (Negative); PH,Urine 7.5 (5.0-8.5); Protein,Urine Negative (Negative); Urobilinogen,Urine 0.2 EU/dl (0.2)
[2020-06-10 21:31] VITALS: BP 125/73; PULSE 89; RESP 14; O2SAT 97
[2020-06-10 22:04] VITALS: BP 124/87; PULSE 79; RESP 14; TEMP 37.1; O2SAT 97
== END 2020-06-10 22:07 | disposition still patient (30) ==
PROVIDERS: Emergency Provider Emergency Medicine; PCP Emergency Medicine
DX: S16.1XXA Strain of muscle, fascia and tendon at neck level, initial encounter (principal); R51.9 Headache, unspecified; R07.89 Other chest pain; M25.562 Pain in left knee; V43.52XA Car driver injured in collision with other type car in traffic accident, initial encounter; Y92.414 Local residential or business street as the place of occurrence of the external cause
CPT/HCPCS: 70450; 71045; 72125; 72170; 74177; 80048; 80076; 81001; 85025; 99282; Q9967

== ENCOUNTER 2020-06-17 19:59 | Emergency (ER) | payer OTHER, SELFPAY ==
[2020-06-17 20:00] VITALS: BP 148/75; PULSE 117; RESP 14; TEMP 36.2; O2SAT 98; BMI 32.9
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
[2020-06-17 20:48] VITALS: BP 148/75; PULSE 117; RESP 14; TEMP 36.2; O2SAT 98
== END 2020-06-17 20:57 | disposition home or self-care (01) ==
PROVIDERS: Emergency Provider Physician Assistant; PCP Emergency Medicine
DX: S83.8X2A Sprain of other specified parts of left knee, initial encounter (principal); V43.52XA Car driver injured in collision with other type car in traffic accident, initial encounter; Y92.414 Local residential or business street as the place of occurrence of the external cause; F17.210 Nicotine dependence, cigarettes, uncomplicated
CPT/HCPCS: 73562; 99202; G0463

== ENCOUNTER → 2020-06-27 17:38 | Outpatient (CLI) | payer MEDICARE, OTHER, SELFPAY ==
[2020-06-27 20:33] LABS: Amphetamine/Metha Screen,Urine Negative ng/ml (<1000)
[2020-06-27 20:34] LABS: Barbiturates Screen,Urine Negative ng/ml (<200)
[2020-06-27 20:35] LABS: Benzodiazepines Screen,Urine Positive ng/ml (<200); Cannabinoid Screen,Urine Positive ng/ml (<50)
[2020-06-27 20:36] LABS: Cocaine Screen,Urine Negative ng/ml (<300); Methadone Screen,Urine Negative ng/ml (<300)
[2020-06-27 20:37] LABS: Opiate Screen,Urine Negative ng/ml (<300)
[2020-06-27 20:39] LABS: Phencyclidine Screen,Urine Negative ng/ml (<25)
== END ==
PROVIDERS: Visit Provider Emergency Medicine
DX: M47.816 Spondylosis without myelopathy or radiculopathy, lumbar region (principal)
CPT/HCPCS: 80305

== ENCOUNTER 2020-07-01 20:22 | Emergency (ER) | payer MEDICARE, OTHER, SELFPAY ==
[2020-07-01 20:25] VITALS: BP 131/73; PULSE 116; RESP 20; TEMP 37.2; O2SAT 99; BMI 32.9
--- NOTE | 2020-07-01 20:47 | HMH.EDUTC ---
[facility] [place]: Cellulitis Qualifiers: Site of cellulitis: extremity Site of cellulitis of extremity: lower extremity Laterality: unspecified laterality Qualified Code(s): L03.119 - Cellulitis of unspecified part of limb Disposition: Home, Self-Care Condition on Discharge: Good Instructions: DI for Cellulitis -- Adult Additional Instructions: Keep feet elevated Prescriptions: Sulfamethoxazole/Trimethoprim [Bactrim DS tablet] 1 each PO BID 10 Days #20 tab Transmission Status: Pending to [facility] predniSONE [Prednisone 20mg Tab] 20 mg PO BID 5 Days #10 tab Transmission Status: Pending to [facility] Referrals: Gaudencio Cantor MD [Primary Care Provider] - Forms: Work/School Release Time of Disposition: 20:50 Medical Decision Making - Angelito Inquiry Pt receiving controlled substance: No Vital Signs: 07/01/20 20:25 Temperature 99.0 F Temperature Source Oral Pulse Rate [Right Brachial] 116 H Respiratory Rate 20 Blood Pressure [Left Arm] 131/73 Blood Pressure Mean [Left Arm] 92 Blood Pressure Source [Left Arm] Automatic Cuff Blood Pressure Position [Left Arm] Sitting 02 Sat by Pulse Oximetry 99 Oxygen Delivery Method Room Air Orders (Tests/Meds): ED MEDICATIONS Generic Name Dose Route Start Last Admin Trade Name Freq PRN Reason Stop Dose Admin Trimethoprim/Sulfamethoxazole 1 each 07/01/20 20:46 Sulfa/Trimethoprim 1 Tablet PO 07/01/20 20:47 ONCE ONE Protocol [facility] [place] - General Stated complaint: rash on lower legs Time Seen by Provider: 07/01/20 20:47 Mode of Arrival: Ambulatory Source of Information: Patient Limitations: No Limitations Description of Symptoms (Recalled from Triage Doc. by RN): PATIENT C/O RED, BURNING, ITCHY RASH TO BILATERAL LOWER LEGS. STATES SHE WAS DIAGNOSED WITH CELLULITIS IN THE PAST HEENT Symptoms (Recalled from RN notes): No Resp Symptoms (Recalled from RN notes): No Skin Symptoms (Recalled from RN notes): Yes MS Symptoms (Recalled from RN notes): No Functional Status (Recalled from RN notes): WNL - History of Present Illness Provider Complaint: Red, itchy rash to lower legs with swelling and low grade fever. Started a few days ago. Worse tonight after working. Onset (ago): day(s) (3) Location: left, right, lower extremity Relieving factors: none Exacerbating factors: none Associated symptoms: fever/chills, rash Treatments prior to arrival: none - Related Data Previous Rx's Medication Instructions Recorded albuterol sulfate 90 mcg/actuation 2 puff INHALATION QID #18 g 02/26/20 aerosol inhaler ciclopirox 8 % topical solution 1 applic TOPICAL DAILY 90 Days 05/24/20 #6.6 ml diclofenac sodium 1 % topical gel 2 g TOPICAL QID PRN #100 g 05/24/20 Cyclobenzaprine HCl 10 mg PO TIDP PRN 10 Days #30 tab 06/17/20 [Cyclobenzaprine 10mg Tab*] Naproxen 500 mg PO BID 10 Days #20 tab 06/17/20 clonazepam 0.5 mg tablet 0.5 mg PO BID #60 tab 06/27/20 gabapentin 300 mg capsule 300 mg PO BID #60 cap 06/27/20 oxycodone-acetaminophen 10 mg-325 1 tab PO TID #90 tab 06/27/20 mg tablet Sulfamethoxazole/Trimethoprim 1 each PO BID 10 Days #20 tab 07/01/20 [Bactrim DS tablet] predniSONE [Prednisone 20mg 20 mg PO BID 5 Days #10 tab 07/01/20 Tab] Allergies Allergy/AdvReac Type Severity Reaction Status Date / Time paroxetine Allergy Severe S-DIFF. Verified 06/27/20 16:32 BREATHING codeine Allergy Intermediate I-ITCHING Verified 06/27/20 16:32 ketorolac Allergy Intermediate I-HIVES Verified 06/27/20 16:32 latex Allergy Intermediate I-HIVES Verified 06/27/20 16:32 phenytoin AdvReac Severe NA-HALLUCIN Verified 06/27/20 16:32 ATIONS Corticosteroids AdvReac Mild TACHYCARDIA Verified 06/27/20 16:32 (Glucocorticoids) - Worker's Comp Is this a Worker's Comp case?: No H History - Hepatitis A Screen Drug use history?: No High risk sexual behaviors?: No History of sexually transmit
[2020-07-01 20:51] VITALS: BP 131/73; PULSE 116; RESP 20; TEMP 37.2; O2SAT 99
== END 2020-07-01 20:56 | disposition home or self-care (01) ==
PROVIDERS: Emergency Provider Physician Assistant; PCP Emergency Medicine
DX: L03.119 Cellulitis of unspecified part of limb (principal)
CPT/HCPCS: 99202; G0463

== ENCOUNTER 2020-08-18 19:22 | Emergency (ER) | payer MEDICARE, OTHER, SELFPAY ==
[2020-08-18 19:22] VITALS: BP 158/100; PULSE 117; RESP 17; TEMP 36.7; O2SAT 97; BMI 33.6
--- NOTE | 2020-08-18 19:50 | HMH.EDUTC ---
[facility] [place] Clinical Impression: Dependent edema Disposition: Home, Self-Care Condition on Discharge: Good Instructions: DI for Dependent Edema, Low-Sodium Diet Additional Instructions: Make sure to eat a low sodium diet to help lower your salt intake Eating foods and drinks high in salt can cause swelling in your feet *Wear Compression sock, this helps with swelling and circulation in your feet Make sure to wear good supportive shoes this can help the stress on your feet from walking alot at work Make sure to follow up with your Family Doctor for further testing and evaluation Monitor the swelling in your feet and follow up with Family Doctor if it continues Straight to ER if any life threatening symptoms, shortness of breath, wet cough etc Do not hang your feet down while you are sitting elevate your feet Go home and prop your feet up above the level of your heart this will help to move fluids and help reduce swelling in your feet and ankles Referrals: Gaudencio Cantor MD [Primary Care Provider] - As needed Forms: Work/School Release Time of Disposition: 20:20 Medical Decision Making - Angelito Inquiry Pt receiving controlled substance: No Angelito was queried for this patient: No Vital Signs: 08/18/20 19:22 08/18/20 20:30 08/18/20 20:32 Temperature 98.1 F 98.3 F Temperature Source Oral Oral Pulse Rate 71 Pulse Rate [Right] 117 H 108 H Respiratory Rate 17 18 Blood Pressure 131/71 Blood Pressure [Right Arm] 158/100 H 134/74 Blood Pressure Mean [Right Arm] 119 94 02 Sat by Pulse Oximetry 97 Oxygen Delivery Method Room Air Room Air Medical Decision Narrative: Patient sitting on exam table and patients feet elevated to help with swelling Discussed with patient no redness or warmth noted in feet or ankles that would suggest Cellulitis Patient had 1+pitting edema noted and she advised she was worried that she was getting cellulitis again in her feet and wanted to have them looked at Patient advised that she has been on her feet alot this week at work Denies shortness of breath Patient educated to make sure that she is wearing good support shoes and compression socks to help control edema and to go home and elevate feet above the level of the heart to see if that helps with swelling and if it continued make sure to follow up with PCP or straight to the ED if any shortness of breath, wet cough etc Discussed labs and patient declined Patient reports that swelling and feet and ankles is much improved since arrival after elevating her feet and not letting them hand down now still has edema but non-pitting at this time [facility] [place] HPI - General Stated complaint: swelling in feet Time Seen by Provider: 08/18/20 19:50 Mode of Arrival: Family Vehicle Source of Information: Patient Limitations: No Limitations Description of Symptoms (Recalled from Triage Doc. by RN): PATIENT C/O BILATERAL LOWER EXTREMITY EDEMA FOR THE LAST WEEK. PT REPORTS HX OF THIS HAPPENING BEFORE. PT REPORTS SHE IS NOT ON A DIURETIC. PT REPORTS SHE WAS ON HER FEET A LOT THIS WEEK. UPON ASSESSMENT THE FEET WERE +1 PITTING EDEMA. HEENT Symptoms (Recalled from RN notes): No Resp Symptoms (Recalled from RN notes): No Skin Symptoms (Recalled from RN notes): Yes MS Symptoms (Recalled from RN notes): No Functional Status (Recalled from RN notes): NA - History of Present Illness Provider Complaint: Patient states that she has been having swelling on and off in both feet after she has been on her feet all day working States that she walks alot at work and swelling usually goes down States that she thinks she had this before and had to get antibiotics for it so she was worried it would get that way again so she come in to get it checked - Related Data Previous Rx's Medication Instructions Recorded albuterol sulfate 90 mcg/actuation 2 puff INHALATION QID #18 g 02/26/20 aerosol inhaler ciclopirox 8 % topical solution 1 applic TOPICAL DAILY 90 Days 04/30
[2020-08-18 20:30] VITALS: BP 134/74; PULSE 108
[2020-08-18 20:32] VITALS: BP 131/71; PULSE 71; RESP 18; TEMP 36.8; O2SAT 98
== END 2020-08-18 20:31 | disposition home or self-care (01) ==
PROVIDERS: Emergency Provider Nurse Practitioner; PCP Emergency Medicine
DX: R60.0 Localized edema (principal); I10 Essential (primary) hypertension; F41.9 Anxiety disorder, unspecified; M79.7 Fibromyalgia; F17.210 Nicotine dependence, cigarettes, uncomplicated
CPT/HCPCS: G0463; 99202

== ENCOUNTER → 2020-09-19 13:34 | Outpatient (CLI) | payer MEDICARE, OTHER, SELFPAY ==
[2020-09-19 14:19] LABS: Phencyclidine Screen,Urine Negative ng/ml (<25)
[2020-09-19 14:26] LABS: Amphetamine/Metha Screen,Urine Negative ng/ml (<1000); Barbiturates Screen,Urine Negative ng/ml (<200)
[2020-09-19 14:27] LABS: Benzodiazepines Screen,Urine Positive ng/ml (<200)
[2020-09-19 14:28] LABS: Cannabinoid Screen,Urine Positive ng/ml (<50)
[2020-09-19 14:30] LABS: Methadone Screen,Urine Negative ng/ml (<300)
[2020-09-19 14:31] LABS: Cocaine Screen,Urine Negative ng/ml (<300); Opiate Screen,Urine Positive ng/ml (<300)
== END ==
PROVIDERS: Visit Provider Emergency Medicine
DX: M47.816 Spondylosis without myelopathy or radiculopathy, lumbar region (principal)
CPT/HCPCS: 80305

== ENCOUNTER 2020-10-09 15:40 | Emergency (ER) | payer MEDICARE, OTHER, SELFPAY ==
[2020-10-09 16:25] VITALS: BP 135/69; PULSE 71; RESP 19; TEMP 37.1; O2SAT 98; BMI 47.2
--- NOTE | 2020-10-09 17:04 | HMH.EDUTC ---
[facility] [place] Disposition Clinical Impression: Cellulitis Qualifiers: Site of cellulitis: unspecified site Qualified Code(s): L03.90 - Cellulitis, unspecified Disposition: Home, Self-Care Condition on Discharge: Good Instructions: Trimethoprim/Sulfamethoxazole (Alternative Therapy), Cellulitis, DI for Dependent Edema Additional Instructions: Take medication as prescribed Elevate legs to help with swelling Follow up with Family Doctor if no improvement or any worsening of symptoms Straight to ER if any life threatening symptoms Return if needed Prescriptions: Sulfamethoxazole/Trimethoprim [Bactrim DS tablet] 1 each PO BID 10 Days #20 tab Transmission Status: Pending to [facility] # predniSONE [Prednisone 20mg Tab] 20 mg PO BID 5 Days #10 tab Transmission Status: Pending to [facility] # Referrals: Gaudencio Cantor MD [Primary Care Provider] - As needed Forms: Work/School Release Medical Decision Making - Angelito Inquiry Pt receiving controlled substance: No Angelito was queried for this patient: No Vital Signs: 10/09/20 16:25 Temperature 98.7 F Temperature Source Oral Pulse Rate [Right Brachial] 71 Respiratory Rate 19 Blood Pressure [Right Arm] 135/69 Blood Pressure Mean [Right Arm] 91 Blood Pressure Source [Right Arm] Automatic Cuff Blood Pressure Position [Right Arm] Sitting 02 Sat by Pulse Oximetry 98 Oxygen Delivery Method Room Air Medical Decision Narrative: Patient reports that she has had cellulitis in the past and has taken both Bactrim and prednisone without complications or reactions [facility] [place] HPI - General Stated complaint: rash on both legs Time Seen by Provider: 10/09/20 17:04 Mode of Arrival: Ambulatory Source of Information: Patient Limitations: No Limitations Description of Symptoms (Recalled from Triage Doc. by RN): PATIENT C/O PAIN, SWELLING, ITCHING/RASH TO BILATERAL FEET AND LEGS X 3 DAYS HEENT Symptoms (Recalled from RN notes): No Resp Symptoms (Recalled from RN notes): No Skin Symptoms (Recalled from RN notes): Yes MS Symptoms (Recalled from RN notes): Yes Functional Status (Recalled from RN notes): WNL - History of Present Illness Provider Complaint: Patient states that she has had cellulitis in the past State that for the last three days she has been having redness, swelling and warmth bilateral lower extemities States that it started on left leg now has gone to the right States that legs are red, painful, swollen and warm to the touch and feels itchy at times when she rubs it - Related Data Home Medications Medication Instructions Recorded Confirmed Gabapentin 300 mg PO BID 10/09/20 10/09/20 Oxycodone HCl/Acetaminophen 1 tab PO TID 10/09/20 10/09/20 [Oxycodone-Acetaminophen 10-325] clonazePAM [Clonazepam] 0.5 mg PO BID 10/09/20 10/09/20 Previous Rx's Medication Instructions Recorded Sulfamethoxazole/Trimethoprim 1 each PO BID 10 Days #20 tab 10/09/20 [Bactrim DS tablet] predniSONE [Prednisone 20mg 20 mg PO BID 5 Days #10 tab 10/09/20 Tab] Allergies Allergy/AdvReac Type Severity Reaction Status Date / Time paroxetine Allergy Severe S-DIFF. Verified 09/19/20 11:04 BREATHING codeine Allergy Intermediate I-ITCHING Verified 09/19/20 11:04 ketorolac Allergy Intermediate I-HIVES Verified 09/19/20 11:04 latex Allergy Intermediate I-HIVES Verified 09/19/20 11:04 phenytoin AdvReac Severe NA-HALLUCIN Verified 09/19/20 11:04 ATIONS Corticosteroids AdvReac Mild TACHYCARDIA Verified 09/19/20 11:04 (Glucocorticoids) - Worker's Comp Is this a Worker's Comp case?: No [facility] History - Hepatitis A Screen Drug use history?: No High risk sexual behaviors?: No History of sexually transmitted infection?: No Currently employed?: No Childcare worker?: No Do you have indoor plumbing?: Yes Do you have electricity?: Yes Attestation statement:: This patient has been screened for Hepatitis A risk factors. I have revie
[2020-10-09 17:20] VITALS: BP 135/69; PULSE 71; RESP 19; TEMP 37.1; O2SAT 98
== END 2020-10-09 17:25 | disposition home or self-care (01) ==
PROVIDERS: Emergency Provider Nurse Practitioner; PCP Emergency Medicine
DX: L03.116 Cellulitis of left lower limb (principal); L03.115 Cellulitis of right lower limb; I10 Essential (primary) hypertension; F41.9 Anxiety disorder, unspecified; M79.7 Fibromyalgia; F17.210 Nicotine dependence, cigarettes, uncomplicated
CPT/HCPCS: G0463; 99202

== ENCOUNTER 2020-10-22 15:41 | Emergency (ER) | payer MEDICARE, OTHER, SELFPAY ==
[2020-10-22 15:43] VITALS: BP 139/85; PULSE 105; RESP 16; TEMP 36.7; O2SAT 98; BMI 33.3
--- NOTE | 2020-10-22 15:55 | ECG_ITS ---
APPROVED REPORT Exam: Resting ECG HR:93 bpm ECG Measurements Heart Rate 93 AXES NV 110 P 45 QRSd 88 QRS 75 QT 390 T -12 QTc 484 Conclusion Sinus rhythm with short NV Abnormal QRS-T angle, consider primary T wave abnormality Prolonged QT Abnormal ECG Electronically signed by : Paramjit Nielsen, 10/24/2020 17:34:01
--- NOTE | 2020-10-22 16:07 | XR_ITS ---
PROCEDURE INFORMATION: Exam: XR Chest Exam date and time: 10/22/2020 4:07 PM Age: 49 years old Clinical indication: Cough; Additional info: Cough, rll crackles TECHNIQUE: Imaging protocol: XR of the chest. Views: 2 views. COMPARISON: CR XR CHEST PORTABLE 06/10/2020 8:09 PM FINDINGS: Lungs: No focal consolidation. Pleural spaces: Unremarkable. No pleural effusion. No pneumothorax. Heart/Mediastinum: Unremarkable. No cardiomegaly. Bones/joints: Unremarkable. Other findings: Lobulated mass projects over the right lung base, stable by previous report since 2017. IMPRESSION: 1. Lobulated mass projects over the right lung base, stable by previous report since 2017. 2. No focal consolidation.
--- NOTE | 2020-10-22 16:11 | HMH.EDGENADL ---
ED Disposition Clinical Impression: COPD exacerbation, Viral illness Disposition: Home, Self-Care Condition on Discharge: Good Instructions: DI for Diarrhea and Traveler's Diarrhea -- Adult, DI for Diarrhea and Traveler's Diarrhea -- Child, DI for Nausea -- Adult, DI for Nausea -- Child Referrals: Gaudencio Cantor MD [Primary Care Provider] - 3 days Time of Disposition: 16:49 - Critical Care Critical Care Time: No Attestation: On 10/22/20, the high probability of a clinically significant, sudden or life threatening deterioration of the following system(s) required my full and direct attention, intervention and personal management. The time I documented below is in addition to time spent performing reported procedures but includes the following listed in this critical care notation. Medical Decision Making - Medical Records Medical records reviewed: Yes: I reviewed the patient's medical records. - Angelito Inquiry Pt receiving controlled substance: No Vital Signs: 10/22/20 15:43 Temperature 98.1 F Temperature Source Oral Pulse Rate [Right] 105 H Respiratory Rate 16 Blood Pressure [Right Arm] 139/85 Blood Pressure Mean [Right Arm] 103 02 Sat by Pulse Oximetry 98 Oxygen Delivery Method Room Air - Lab Data Lab results reviewed: Yes: I reviewed the patient's lab results. Lab Results 10/22/20 15:59: WBC 7.1, RBC 4.10 L, Hgb 12.7, Hct 37.3, MCV 91.0, MCH 31.1, MCHC 34.1, RDW 13.8, Plt Count 271, MPV 7.6, Neut % (Auto) 40.2, Lymph % (Auto) 52.2 H, Owsley % (Auto) 3.6, Eos % (Auto) 3.4, Baso % (Auto) 0.7, Neut # (Auto) 2.9, Lymph # (Auto) 3.7, Owsley # (Auto) 0.3, Eos # (Auto) 0.2, Baso # (Auto) 0.1, Total Counted 100, Neutrophils % (Manual) 41 L, Lymphocytes % (Manual) 50, Monocytes % (Manual) 5, Eosinophils % (Manual) 3, Basophils % (Manual) 1.0, Platelet Estimate Normal, RBC Morphology Normal 10/22/20 15:59: Sodium 141, Potassium 3.5, Chloride 104, Carbon Dioxide 26, Anion Gap 14.5, BUN 9, Creatinine 0.90, Estimated Creat Clear 111, Estimated GFR 67, Est GFR ( Amer) 81, Glucose 148 H, Calcium 9.1, Total Bilirubin 0.3, AST 34, ALT 25, Alkaline Phosphatase 78, Total Protein 7.4, Albumin 4.4, Globulin 3.0, Albumin/Globulin Ratio 1.5 Result diagrams: 10/22/20 15:59 10/22/20 15:59 Orders (Tests/Meds): ORDERS Category Date Time Status CXR 2 view (NOT portable) [XR chest 2V] Stat Exams 10/22/20 16:07 Taken - Radiology Data #1 Image(s): Chest Image Reviewed: Yes I reviewed the patient's radiology results Preliminary Findings: Abnormal General increase in interstitial markings. - ECG Data Tracing #1 I reviewed this ECG and interpreted as documented below: Sinus rhythm, 90 bpm, nonspecific T wave abnormality, prolonged QT, no ST elevation or depression. ECG initial impression date: 10/22/20 ECG initial impression time: 15:57 Medical Decision Narrative: 49yo F evaluated for a week and a half long cough. Patient no acute distress on initial evaluation. Differential diagnosis includes was not limited to: Viral etiology, pneumonia, Covid, CHF exacerbation, ACS/GA. Chest x-ray and CBC are pending at this time. Vital signs are unremarkable. General Adult HPI - General Chief complaint: Nausea/Vomiting/Diarrhea Stated complaint: BLACKWELL, Cough, SOB Time Seen by Provider: 10/22/20 16:00 Mode of Arrival: Family Vehicle Limitations: No Limitations Description of Symptoms (Recalled from ER Triage Doc. by RN): Patient c/o productive cough, SOA, diarrhea and general mylagia for the last week and a half. Pt reports she has been taking Tylenol and Mucinex to treat her symtoms. Pt denies any known COVID exposure. Pt reports she has had the COVID vaccine. - History of Present Illness HPI narrative: 49yo F presents the emergency department secondary to a week and a half of cough, nausea, diarrhea. Patient thought she had the flu and is tried treating herself with [id number] medications without improv
[2020-10-22 16:18] VITALS: BP 119/68; PULSE 93; O2SAT 95
[2020-10-22 16:22] LABS: Basophils # 0.1 K/mm3 (0-0.2); Basophils % 0.7 % (0.1-2.0); Eosinophils # 0.2 K/mm3 (0.0-0.4); Eosinophils % 3.4 % (0.1-12.0); Hematocrit 37.3 % (37.0-47.0); Hemoglobin 12.7 g/dL (12.2-16.2); Lymphocytes # 3.7 K/mm3 (0.7-4.5); Lymphocytes % 52.2 % (10-50); Mean Corpuscular HGB Conc 34.1 g/dL (31.8-35.4); Mean Corpuscular Hemoglobin 31.1 pg (27.0-31.2); Mean Platelet Volume 7.6 fl (7.4-10.4); Monocytes # 0.3 K/mm3 (0.1-1.0); Monocytes % 3.6 % (1.7-9.3); Neutrophils # 2.9 K/mm3 (1.8-7.8); Neutrophils % 40.2 % (37.0-80.0); Platelet Count 271 K/mm3 (142-424); Red Cell Distribution Width 13.8 % (11.5-17.5); White Blood Count 7.1 K/mm3 (4.8-10.8)
[2020-10-22 16:23] LABS: Chloride 104 mmol/L (98-107); MANUAL DIFFERENTIAL MANUAL DIFFERENTIAL (MANUAL DIFF); Sodium 141 mmol/L (136-145)
[2020-10-22 16:24] LABS: Potassium 3.5 mmoL/L (3.5-5.1)
[2020-10-22 16:26] LABS: Alanine Aminotransferase 25 U/L (12-78); Albumin Level 4.4 g/dl (3.5-5.0); Albumin/Globulin Ratio 1.5 (1.1-1.8); Alkaline Phosphatase 78 U/L (38-126); Anion Gap 14.5 mEq/L (5-15); Aspartate Amino Transferase 34 U/L (14-36); Bilirubin,Total 0.3 mg/dl (0.2-1.3); Blood Urea Nitrogen 9 mg/dl (7-17); Calcium 9.1 mg/dl (8.4-10.2); Carbon Dioxide 26 mmol/L (22.0-30.0); Creatinine Clearance Estimated 111 mL/min (50-200); Estimated Glomerular Filt Rate 67 ml/min (>60); GFR (African American) 81 ML/MIN (>60); Glucose 148 mg/dl (74-100); Total Protein,Serum 7.4 g/dl (6.3-8.2)
[2020-10-22 16:30] VITALS: BP 109/68; PULSE 90; O2SAT 95
[2020-10-22 16:32] LABS: Eosinophils % 3 % (0-3); Lymphocytes % 50 % (10-50); Monocytes % 5 % (2-9); Neutrophils % 41 % (42-76); Platelet Estimate Normal; RBC Morphology Normal; Total Cells Counted 100
[2020-10-22 17:05] VITALS: BP 113/70; PULSE 82; RESP 18; TEMP 36.8; O2SAT 97
== END 2020-10-22 17:14 | disposition home or self-care (01) ==
PROVIDERS: Emergency Provider Family Medicine; PCP Emergency Medicine
DX: J44.1 Chronic obstructive pulmonary disease with (acute) exacerbation (principal); I10 Essential (primary) hypertension; F17.210 Nicotine dependence, cigarettes, uncomplicated
CPT/HCPCS: 71046; 80053; 85007; 85025; 93005; 99282

== ENCOUNTER → 2020-11-16 13:12 | Outpatient (CLI) | payer MEDICARE, OTHER, SELFPAY ==
[2020-11-16 14:57] LABS: Amphetamine/Metha Screen,Urine Negative ng/ml (<1000)
[2020-11-16 14:58] LABS: Barbiturates Screen,Urine Negative ng/ml (<200); Benzodiazepines Screen,Urine Positive ng/ml (<200)
[2020-11-16 14:59] LABS: Cannabinoid Screen,Urine Positive ng/ml (<50); Cocaine Screen,Urine Negative ng/ml (<300)
[2020-11-16 15:00] LABS: Methadone Screen,Urine Negative ng/ml (<300)
[2020-11-16 15:01] LABS: Opiate Screen,Urine Negative ng/ml (<300)
[2020-11-16 15:03] LABS: Phencyclidine Screen,Urine Negative ng/ml (<25)
== END ==
PROVIDERS: Visit Provider Emergency Medicine
DX: M47.816 Spondylosis without myelopathy or radiculopathy, lumbar region (principal)
CPT/HCPCS: 80305

== ENCOUNTER → 2020-12-27 10:24 | Outpatient (POV) | payer MEDICARE, OTHER, SELFPAY | PROVIDERS: Visit Provider Dermatology | DX: Z00.00 Encounter for general adult medical examination without abnormal findings (principal) ==

== ENCOUNTER → 2021-01-11 18:21 | Outpatient (CLI) | payer MEDICARE, OTHER, SELFPAY ==
[2021-01-11 20:56] LABS: Amphetamine/Metha Screen,Urine Negative ng/ml (<1000)
[2021-01-11 20:57] LABS: Barbiturates Screen,Urine Negative ng/ml (<200)
[2021-01-11 20:59] LABS: Benzodiazepines Screen,Urine Positive ng/ml (<200); Cannabinoid Screen,Urine Positive ng/ml (<50)
[2021-01-11 21:00] LABS: Cocaine Screen,Urine Negative ng/ml (<300)
[2021-01-11 21:01] LABS: Methadone Screen,Urine Negative ng/ml (<300)
[2021-01-11 21:02] LABS: Opiate Screen,Urine Negative ng/ml (<300); Phencyclidine Screen,Urine Negative ng/ml (<25)
== END ==
PROVIDERS: Visit Provider Emergency Medicine
DX: M47.816 Spondylosis without myelopathy or radiculopathy, lumbar region (principal)
CPT/HCPCS: 80305

== ENCOUNTER → 2021-04-11 18:51 | Outpatient (CLI) | payer MEDICARE, OTHER, SELFPAY ==
[2021-04-11 18:53] LABS: Coronavirus 19, PCR Not Detected (NotDetected); Influenza A, PCR Not Detected (NotDetected); Influenza B, PCR Not Detected (NotDetected)
== END ==
PROVIDERS: Visit Provider Emergency Medicine
DX: R05.9 Cough, unspecified (principal); Z20.822 Contact with and (suspected) exposure to COVID-19
CPT/HCPCS: C9803; U0003; U0005

== ENCOUNTER → 2021-06-09 16:00 | Outpatient (CLI) | payer MEDICARE, OTHER, SELFPAY ==
[2021-06-09 18:43] LABS: Amphetamine/Metha Screen,Urine Negative ng/ml (<1000); Benzodiazepines Screen,Urine Negative ng/ml (<200)
[2021-06-09 18:44] LABS: Barbiturates Screen,Urine Negative ng/ml (<200)
[2021-06-09 18:45] LABS: Cannabinoid Screen,Urine Negative ng/ml (<50); Methadone Screen,Urine Negative ng/ml (<300)
[2021-06-09 18:46] LABS: Cocaine Screen,Urine Negative ng/ml (<300); Phencyclidine Screen,Urine Negative ng/ml (<25)
[2021-06-09 18:47] LABS: Opiate Screen,Urine Positive ng/ml (<300)
== END ==
PROVIDERS: Visit Provider Emergency Medicine
DX: M47.816 Spondylosis without myelopathy or radiculopathy, lumbar region (principal)
CPT/HCPCS: 80305

== ENCOUNTER → 2021-08-22 16:00 | Outpatient (CLI) | payer MEDICARE, OTHER, SELFPAY ==
[2021-08-22 19:50] LABS: Amphetamine/Metha Screen,Urine Negative ng/ml (<1000)
[2021-08-22 19:51] LABS: Barbiturates Screen,Urine Negative ng/ml (<200); Benzodiazepines Screen,Urine Negative ng/ml (<200)
[2021-08-22 19:52] LABS: Cannabinoid Screen,Urine Negative ng/ml (<50); Cocaine Screen,Urine Negative ng/ml (<300)
[2021-08-22 19:53] LABS: Methadone Screen,Urine Negative ng/ml (<300)
[2021-08-22 19:54] LABS: Opiate Screen,Urine Positive ng/ml (<300); Phencyclidine Screen,Urine Negative ng/ml (<25)
== END ==
PROVIDERS: Visit Provider Emergency Medicine
DX: M47.816 Spondylosis without myelopathy or radiculopathy, lumbar region (principal)
CPT/HCPCS: 80305

== ENCOUNTER → 2022-01-05 21:37 | Outpatient (CLI) | payer MEDICARE, OTHER, SELFPAY ==
[2022-01-05 15:22] LABS: Barbiturates Screen,Urine Negative ng/ml (<200); Benzodiazepines Screen,Urine Negative ng/ml (<200)
[2022-01-05 15:23] LABS: Amphetamine/Metha Screen,Urine Negative ng/ml (<1000); Cannabinoid Screen,Urine Negative ng/ml (<50)
[2022-01-05 15:24] LABS: Cocaine Screen,Urine Negative ng/ml (<300)
[2022-01-05 15:25] LABS: Methadone Screen,Urine Negative ng/ml (<300); Opiate Screen,Urine Negative ng/ml (<300)
[2022-01-05 15:26] LABS: Phencyclidine Screen,Urine Negative ng/ml (<25)
== END ==
PROVIDERS: PCP Emergency Medicine; Visit Provider Emergency Medicine
DX: Z79.899 Other long term (current) drug therapy (principal)
CPT/HCPCS: 80305

== ENCOUNTER → 2022-03-19 16:10 | Outpatient (CLI) | payer MEDICARE, OTHER, SELFPAY ==
[2022-03-19 19:53] LABS: Amphetamine/Metha Screen,Urine Negative ng/ml (<1000)
[2022-03-19 19:54] LABS: Barbiturates Screen,Urine Negative ng/ml (<200); Benzodiazepines Screen,Urine Negative ng/ml (<200)
[2022-03-19 19:55] LABS: Cannabinoid Screen,Urine Negative ng/ml (<50)
[2022-03-19 19:56] LABS: Cocaine Screen,Urine Negative ng/ml (<300)
[2022-03-19 20:20] LABS: Methadone Screen,Urine Negative ng/ml (<300); Opiate Screen,Urine Positive ng/ml (<300)
[2022-03-19 20:21] LABS: Phencyclidine Screen,Urine Negative ng/ml (<25)
== END ==
PROVIDERS: PCP Emergency Medicine; Visit Provider Emergency Medicine
DX: M54.16 Radiculopathy, lumbar region (principal)
CPT/HCPCS: 80305

== ENCOUNTER → 2022-06-18 23:48 | Outpatient (CLI) | payer MEDICARE, OTHER, SELFPAY ==
[2022-06-18 18:30] LABS: Phencyclidine Screen,Urine Negative ng/ml (<25)
[2022-06-18 18:36] LABS: Amphetamine/Metha Screen,Urine Negative ng/ml (<1000)
[2022-06-18 18:37] LABS: Barbiturates Screen,Urine Negative ng/ml (<200)
[2022-06-18 18:38] LABS: Benzodiazepines Screen,Urine Positive ng/ml (<200); Cannabinoid Screen,Urine Negative ng/ml (<50)
[2022-06-18 18:41] LABS: Cocaine Screen,Urine Negative ng/ml (<300); Methadone Screen,Urine Negative ng/ml (<300)
[2022-06-18 18:42] LABS: Opiate Screen,Urine Negative ng/ml (<300)
== END ==
PROVIDERS: PCP Emergency Medicine; Visit Provider Emergency Medicine
DX: M54.16 Radiculopathy, lumbar region (principal)
CPT/HCPCS: 80305

== ENCOUNTER → 2022-08-14 23:16 | Outpatient (CLI) | payer OTHER, SELFPAY ==
[2022-08-14 20:13] LABS: Amphetamine/Metha Screen,Urine Negative ng/ml (<1000)
[2022-08-14 20:14] LABS: Barbiturates Screen,Urine Negative ng/ml (<200); Benzodiazepines Screen,Urine Negative ng/ml (<200)
[2022-08-14 20:15] LABS: Cannabinoid Screen,Urine Negative ng/ml (<50)
[2022-08-14 20:17] LABS: Cocaine Screen,Urine Negative ng/ml (<300); Methadone Screen,Urine Negative ng/ml (<300)
[2022-08-14 20:18] LABS: Opiate Screen,Urine Negative ng/ml (<300)
[2022-08-14 20:19] LABS: Phencyclidine Screen,Urine Negative ng/ml (<25)
== END ==
PROVIDERS: PCP Emergency Medicine; Visit Provider Emergency Medicine
DX: M54.16 Radiculopathy, lumbar region (principal)
CPT/HCPCS: 80305

== ENCOUNTER → 2022-10-13 09:43 | Outpatient (CLI) | payer OTHER, SELFPAY ==
[2022-10-12 18:18] LABS: Basophils % 0.2 % (0.1-2.0); Eosinophils # 0.2 K/mm3 (0.0-0.4); Eosinophils % 1.9 % (0.1-12.0); Hematocrit 45.4 % (37.0-47.0); Hemoglobin 14.6 g/dL (12.2-16.2); Lymphocytes # 3.4 K/mm3 (0.7-4.5); Lymphocytes % 39.2 % (10-50); Mean Corpuscular HGB Conc 32.1 g/dL (31.8-35.4); Mean Corpuscular Hemoglobin 30.5 pg (27.0-31.2); Mean Platelet Volume 9.4 fl (7.4-10.4); Monocytes # 0.4 K/mm3 (0.1-1.0); Monocytes % 4.9 % (1.7-9.3); Neutrophils # 4.6 K/mm3 (1.8-7.8); Neutrophils % 53.7 % (37.0-80.0); Platelet Count 366 K/mm3 (142-424); Red Blood Count 4.78 M/mm3 (4.20-5.40); Red Cell Distribution Width 13.2 % (11.5-17.5); White Blood Count 8.6 K/mm3 (4.8-10.8)
[2022-10-12 18:28] LABS: Alanine Aminotransferase 18 U/L (12-78); Albumin Level 4.7 g/dl (3.5-5.0); Albumin/Globulin Ratio 1.6 (1.1-1.8); Alkaline Phosphatase 62 U/L (38-126); Anion Gap 17.3 mEq/L (5-15); Aspartate Amino Transferase 28 U/L (14-36); Bilirubin,Total 0.4 mg/dl (0.2-1.3); Blood Urea Nitrogen 12 mg/dl (7-17); Calcium 9.5 mg/dl (8.4-10.2); Carbon Dioxide 28 mmol/L (22.0-30.0); Chloride 102 mmol/L (98-107); Estimated Glomerular Filt Rate 67 ml/min (>60); GFR (African American) 81 ML/MIN (>60); Globulin 2.9 g/dL (1.3-3.2); Glucose 96 mg/dl (74-100); HDL Cholesterol 49 mg/dl (40-60); Potassium 4.3 mmoL/L (3.5-5.1); Sodium 143 mmol/L (136-145); Total Protein,Serum 7.6 g/dl (6.3-8.2); Triglycerides 312 mg/dl (30-150); VLDL Cholesterol 62 mg/dL (0-40)
[2022-10-12 18:39] LABS: Cholesterol 390 mg/dl (140-200)
[2022-10-12 18:40] LABS: Direct LDL Cholesterol 214.28 mg/dL (100-129)
[2022-10-12 18:48] LABS: 25-OH Vitamin D, Total 21.5 ng/mL (30-100); T4 (Thyroxine) 7.1 ug/dl (5.53-11.0)
[2022-10-12 19:01] LABS: Thyroid Stimulating Hormone 0.67 uIU/mL (0.465-4.68)
== END ==
PROVIDERS: PCP Emergency Medicine; Visit Provider Emergency Medicine
DX: Z00.00 Encounter for general adult medical examination without abnormal findings (principal); E55.9 Vitamin D deficiency, unspecified; Z79.899 Other long term (current) drug therapy
CPT/HCPCS: 80053; 80061; 82306; 84436; 84443; 85025

== ENCOUNTER 2023-05-08 08:57 | Emergency (ER) | payer SELFPAY ==
[2023-05-08] VITALS (11 sets, daily range): BP systolic 88–130; BP diastolic 53–84; PULSE 74–98; RESP 12–20; TEMP 36.6; O2SAT 89–100; BMI 30.7
--- NOTE | 2023-05-08 08:37 | ECG_ITS ---
APPROVED REPORT Exam: Resting ECG HR:87 bpm ECG Measurements Heart Rate 87 AXES NM 121 P -13 QRSd 89 QRS 83 QT 387 T 81 QTc 432 Conclusion SINUS RHYTHM NORMAL ECG UNCONFIRMED REPORT Electronically signed by : Paramjit Nielsen MD 05/09/2023 20:13:37
--- NOTE | 2023-05-08 08:40 | CT_ITS ---
FINAL REPORT TECHNIQUE: Then section axial CT images of the chest were obtained with contrast. Three-D reformatted images were also obtained.This study was performed with techniques to keep radiation doses as low as reasonably achievable (ALARA). Individualized dose reduction techniques using automated exposure control or adjustment of mA and/or kV according to the patient''s size were employed. CLINICAL HISTORY: hypotension, back pain, hypoxemia COMPARISON: CT chest 06/10/2020 FINDINGS: There is no evidence of pulmonary embolism. There is no evidence of thoracic aortic aneurysm or dissection. There are small axillary nodes. There is no evidence of mediastinal or hilar mass or adenopathy. There is a lobular right lower lobe nodule measuring 24 x 23 mm, was 23 x 21 mm, likely benign. This is stable from the 2020 study and the report from 2017. There is mild bibasilar atelectasis. There is a calcified granuloma in the left lower lobe. Limited images of the upper abdomen are unremarkable. IMPRESSION: No evidence of pulmonary embolism. Stable right lower lobe nodule, likely benign. Reviewed, Interpreted and Dictated by Eliezer Negron III, MD Transcribed by Lorenza Schroeder Authenticated and [facility]
--- NOTE | 2023-05-08 08:41 | XR_ITS ---
FINAL REPORT CLINICAL HISTORY: hypotension, hypoxemia COMPARISON: 10/22/2020 FINDINGS: A single portable view of the chest was obtained. The heart size and pulmonary vascularity are within normal limits. The mediastinum is within normal limits. There is a nodule identified in the right lung base, which is stable since the prior CT of 2020. No confluent infiltrates or effusions are identified. The bony thorax is intact. IMPRESSION: No active cardiopulmonary disease. Nodule seen in the right lung base is stable since the prior CT of 2020. Reviewed, Interpreted and Dictated by Eliezer Negron III, MD Transcribed by Shelby Laguna Authenticated and [facility]
--- NOTE | 2023-05-08 08:41 | CT_ITS ---
FINAL REPORT TECHNIQUE: Pre-and postcontrast images of the abdomen through the pelvis were performed by computed tomography. Extensive 3-D reconstruction images were performed. A CTA was performed. This study was performed with techniques to keep radiation doses as low as reasonably achievable (ALARA). Individualized dose reduction techniques using automated exposure control or adjustment of mA and/or kV according to the patient's size were employed. CLINICAL HISTORY: BP, hypotension, hypoxemia COMPARISON: 06/10/2020 FINDINGS: ABDOMEN: The lung bases are clear. There is mild nonspecific gallbladder wall thickening. Precontrast images demonstrate no evidence of nephrolithiasis. No adrenal masses are identified. The liver, spleen and pancreas are unremarkable. PELVIS: The appendix is unremarkable. The urinary bladder is unremarkable. Post hysterectomy. There is no significant free fluid or adenopathy. The bony pelvis is unremarkable. CTA: The abdominal aorta is proper caliber. There are mild vascular calcifications. The SMA, celiac axis, and VIVIAN are patent. There is no significant stenosis or calcification. The renal arteries are patent bilaterally. The iliac arteries are patent bilaterally. IMPRESSION: No evidence of aneurysm or dissection. No evidence of stenosis. Reviewed, Interpreted and Dictated by Eliezer Negron III, MD Transcribed by Lorenza Schroeder Authenticated and [facility]
--- NOTE | 2023-05-08 08:51 | ED_ITS ---
Discharge Plan Disposition Patient Disposition: Home, Self-Care Chief Complaint: Dizziness Prescriptions Prescriptions: No Action quetiapine 100 mg tablet 100 mg PO HS duloxetine 60 mg capsule,delayed release(DR/EC) 60 mg PO cephalexin 500 mg capsule 500 mg PO TID Qty: 21 0RF cyclobenzaprine 10 mg tablet 10 mg PO BID Qty: 60 1RF clonazepam 0.5 mg tablet 0.5 mg PO BID Qty: 60 1RF gabapentin 300 mg capsule 300 mg PO BID Qty: 60 1RF oxycodone 10 mg tablet 10 mg PO TID Qty: 90 0RF ergocalciferol (vitamin D2) [Vitamin D2] 1,250 mcg (50,000 unit) capsule 1,250 mcg PO WEEKLY Qty: 5 2RF atorvastatin [Lipitor] 10 mg tablet 10 mg PO DAILY Qty: 30 3RF Activity Restrictions/Add. Instructions Additional Instructions/Restrictions: Call your family doctor to establish care for this visit to the emergency department and schedule follow-up within 48 hours to ensure improvement. If you have any worsening of your condition or any other concerning signs or symptoms, return to the emergency department or your primary care doctor for further evaluation. Clinical Impressions Clinical Impression: Acute hypotension, Back pain, Malaise Discharge ED Provider: Ab Pena General Adult HPI General Chief complaint: Dizziness Stated complaint: Dizziness Time Seen by Provider: 05/08/23 07:50 History of Present Illness HPI narrative: 52-year-old female with history of seizure disorder not currently on antiepileptic, COPD not currently on oxygen, lipidemia presenting with multiple complaints. Patient was at work doing nothing strenuous when she started having lightheadedness and feeling general malaise. Shortly thereafter, had intense pain radiating up and down her spine. [place] as if she was going to pass out. Started having shortness of breath and had somebody help her sit on the ground. Was unable to gather the strength to get up, so EMS was called. On EMS arrival, patient hypotensive 90s over 50s, tachycardic. Patient was brought to the ER for further evaluation. Patient complaining of severe back pain at this time. No abdominal tenderness, lower extremity deficits, bowel or bladder dysfunction, syncope, chest pain or current shortness of breath. Keeps saying she feels thirsty and restless, but otherwise no complaints. Related Data Home Medications Medication Instructions Recorded Confirmed duloxetine 60 mg capsule,delayed 60 mg PO 10/12/22 02/04/23 release quetiapine 100 mg tablet 100 mg PO HS 10/12/22 02/04/23 Previous Rx's Medication Instructions Recorded atorvastatin 10 mg tablet (Lipitor) 10 mg PO DAILY #30 tabs 10/17/22 ergocalciferol (vitamin D2) 1,250 1,250 mcg PO WEEKLY #5 caps 10/17/22 mcg (50,000 unit) capsule (Vitamin D2) cephalexin 500 mg capsule 500 mg PO TID #21 caps 02/04/23 clonazepam 0.5 mg tablet 0.5 mg PO BID Anxiety #60 tabs 02/04/23 cyclobenzaprine 10 mg tablet 10 mg PO BID #60 tabs 02/04/23 gabapentin 300 mg capsule 300 mg PO BID Pain #60 caps 02/04/23 oxycodone 10 mg tablet 10 mg PO TID #90 tabs 02/04/23 Allergies Allergy/AdvReac Type Severity Reaction Status Date / Time paroxetine Allergy Severe S-DIFF. Verified 02/04/23 14:15 BREATHING codeine Allergy Intermediate I-ITCHING Verified 02/04/23 14:15 ketorolac Allergy Intermediate I-HIVES Verified 02/04/23 14:15 latex Allergy Intermediate I-HIVES Verified 02/04/23 14:15 phenytoin AdvReac Severe NA-HALLUCIN Verified 02/04/23 14:15 ATIONS Corticosteroids AdvReac Mild TACHYCARDIA Verified 02/04/23 14:15 (Glucocorticoids) [facility] Disclaimer: The information contained in this section may have been updated after the patient was seen, as this information can be updated by other users. Social History Smoking Status: Current every day smoker tobacco type: cigarettes packs per day: 1 second hand exposure: No alcohol intake: never substance use type: former substance user, marijuana and opiates current occupational status: other Travel in the last 8 weeks: None household members: children housing: house number of children: 2 current occupation: [employer] current occupational exposures/hazards: No caffeine: Yes ROS Obtained: Yes All systems reviewed & no additional complaints except as documented Physical Exam General General appearance: alert and other (Very ill-appearing. Pale, perioral cyanosis, lethargic.) Head Head exam: atraumatic and normocephalic Eye Eye exam: Present normal appearance, PERRL and EOMI ENT ENT exam: Present mucous membranes dry and other (No JVD) Neck Neck exam: Present normal inspection, full ROM and trachea midline Respiratory Respiratory exam: Present normal lung sounds bilaterally and other (Quiet lung sounds bilaterally, but present. No focal sound); Absent respiratory distress, wheezes, stridor, accessory muscle use or prolonged expiratory phase Cardiovascular Cardiovascular exam: Present regular rate and normal rhythm Abdominal Exam Abdominal exam: Present soft; Absent distention, tenderness, guarding, rebound or rigidity Extremities Exam Extremities exam: Absent edema Neurological Exam Neurological exam: Present alert, oriented X3 and CN II-XII intact; Absent motor sensory deficit Skin Skin exam: Present warm, dry, cyanosis and pallor; Absent diaphoresis or erythema Medical Decision Making Medical Records Medical records reviewed: Yes I reviewed the patient's medical records. Angelito Inquiry Pt receiving controlled substance: No Angelito was queried for this patient: No Vital Signs: 05/08/23 08:46 05/08/23 09:40 05/08/23 08:44 Temperature 97.9 F Temperature Source Oral Pulse Rate 76 86 Pulse Rate [Right] 98 H Respiratory Rate 16 15 12 Blood Pressure 104/84 L 94/56 L Blood Pressure [Right Arm] 105/53 L Blood Pressure Mean [Right Arm] 70 Blood Pressure Source [Right Arm] Automatic Cuff Blood Pressure Position Supine 02 Sat by Pulse Oximetry 89 L 100 99 Oxygen Delivery Method Room Air Nasal Cannula Nasal Cannula Oxygen Flow Rate (LPM) 2 4 05/08/23 08:50 05/08/23 09:31 05/08/23 10:00 Temperature Temperature Source Pulse Rate 79 81 82 Pulse Rate [Right] Respiratory Rate 18 13 13 Blood Pressure 88/57 L 104/84 L 109/68 L Blood Pressure [Right Arm] Blood Pressure Mean [Right Arm] Blood Pressure Source [Right Arm] Blood Pressure Position 02 Sat by Pulse Oximetry 98 99 96 Oxygen Delivery Method Nasal Cannula Nasal Cannula Oxygen Flow Rate (LPM) 4 4 05/08/23 10:30 05/08/23 11:00 05/08/23 11:30 Temperature Temperature Source Pulse Rate Pulse Rate [Right] Respiratory Rate 14 12 20 Blood Pressure 114/72 125/75 116/71 Blood Pressure [Right Arm] Blood Pressure Mean [Right Arm] Blood Pressure Source [Right Arm] Blood Pressure Position 02 Sat by Pulse Oximetry Oxygen Delivery Method Oxygen Flow Rate (LPM) Lab Data Lab Results 05/08/23 08:42: VBG pH 7.34, VBG pCO2 48.6, VBG pO2 31.6, VBG HCO3 25.4, VBG Total CO2 26.9, VBG O2 Saturation 58.1, VBG Base Excess -0.4 05/08/23 08:50: WBC 7.9, RBC 4.32, Hgb 13.8, Hct 41.9, MCV 97.1, MCH 31.9 H, MCHC 32.8, RDW 13.6, Plt Count 325, MPV 8.4, Neut % (Auto) 51.2, Lymph % (Auto) 40.0, [place] % (Auto) 4.8, Eos % (Auto) 3.2, Baso % (Auto) 0.8, Neut # (Auto) 4.1, Lymph # (Auto) 3.2, [place] # (Auto) 0.4, Eos # (Auto) 0.3, Baso # (Auto) 0.1, Sodium 138, Potassium 3.8, Chloride 104, Carbon Dioxide 33 H, Anion Gap 4.8 L, BUN 12, Creatinine 1.00, Estimated Creat Clear 89, Estimated GFR 59, Est GFR ( Amer) 71, Glucose 117 H, Calcium 8.6, Total Bilirubin 0.4, AST 24, ALT 14, Alkaline Phosphatase 60, Troponin I < 0.01, NT-Pro-B Natriuret Pep 26.2, Total Protein 6.7, Albumin 4.0, Globulin 2.7, Albumin/Globulin Ratio 1.5, Lipase 38 05/08/23 11:20: Troponin I < 0.01 05/08/23 08:50 05/08/23 08:50 Orders (Tests/Meds): ED MEDICATIONS Discontinued Medications Generic Name Dose Route Start Last Admin Trade Name Freq PRN Reason Stop Dose Admin Sodium Chloride 1,000 mls @ 999 mls/hr 05/08/23 08:40 05/08/23 11:15 Sod Chlor 0.9% 1000ml Bag IV 05/08/23 09:40 999 mls/hr .Q1H1M ONE Administration Iopamidol 100 ml 05/08/23 09:34 05/08/23 09:35 Iopamidol-370 (76%);100ml Bottle IV 05/08/23 09:35 100 ml ONCE ONE Administration Sodium Chloride 50 ml 05/08/23 09:34 05/08/23 09:35 0.9 % Sodium Chloride 50 Ml Vial IV 05/08/23 09:35 50 ml ONCE ONE Administration Sodium Chloride 10 ml 05/08/23 09:34 05/08/23 09:35 Sodium Chloride 0.9% 10ml Syr (Rad Only) IV 05/08/23 09:35 10 ml ONCE ONE Administration ORDERS Category Date Time Status CT angio abdomen pelvis Stat Cat Scan 05/08/23 08:[address] angio chest PE protocol Stat Cat Scan 05/08/23 08:40 Completed POCUS Point of Care (ER Only) Stat Exams 05/08/23 08:42 Taken XR chest portable Stat Exams 05/08/23 08:41 Completed Brain Natriuretic Peptide Stat Lab 05/08/23 08:50 Completed Complete Blood Count Auto Diff Stat Lab 05/08/23 08:50 Completed Comprehensive Metabolic Panel Stat Lab 05/08/23 08:50 Completed Lactic Acid Stat Lab 05/08/23 08:41 Ordered Lipase Stat Lab 05/08/23 08:50 Completed Troponin I Q3H Lab 05/08/23 11:20 Completed Troponin I Q3H Lab 05/08/23 14:45 Ordered Troponin I Stat Lab 05/08/23 08:50 Completed Urinalysis and Microscopic Stat Lab 05/08/23 08:42 Ordered Venous Blood Gas Stat RT 05/08/23 08:42 Completed Medical Decision Narrative: 52-year-old female with history of seizure disorder not currently on antiepileptic, COPD not currently on oxygen, lipidemia presenting with multiple complaints. Patient was at work doing nothing strenuous when she started having lightheadedness and feeling general malaise. Shortly thereafter, had intense pain radiating up and down her spine. [place] as if she was going to pass out. Started having shortness of breath and had somebody help her sit on the ground. Was unable to gather the strength to get up, so EMS was called. On EMS arrival, patient hypotensive 90s over 50s, tachycardic. Patient was brought to the ER for further evaluation. Patient complaining of severe back pain at this time. No abdominal tenderness, lower extremity deficits, bowel or bladder dysfunction, syncope, chest pain or current shortness of breath. Keeps saying she feels thirsty and restless, but otherwise no complaints. History was obtained via conversation with patient, EMS. On arrival, patient hemodynamically stable, alert, oriented x4, appropriate, GCS 15, moving all extremities spontaneously, pupils equal and reactive to light. Full physical exam performed and significant for ill-appearing patient. She is pale, perioral cyanosis. Patient is not diaphoretic. Hypoxemic 88% on room air with no previous oxygen requirement. Nontachycardic and normotensive, but wide pulse pressure. Lungs are clear to auscultation bilaterally, pulses equal and symmetric. Differential includes pneumothorax, PE, COPD exacerbation, aortic dissection, aortic aneurysm, ME, sepsis, among others. Patient was given 2 L normal saline initially for symptomatic management and correction of underlying abnormalities. Workup independently interpreted and significant for negative delta troponin. Nonactionable CBC or chemistry. Chest x-ray unremarkable. BNP negative. CTA chest abdomen pelvis with stable right pulmonary nodule, but no evidence of dissection or other acute pathology. See radiology read for full review of final results. Bedside sandoval exam negative. Independent interpretation of EKG shows sinus rhythm 87 beats a minute with no ST or T wave changes concerning for acute ischemia. VT, QRS, QT intervals within normal limits. [place] normal. Good R wave progression. On reevaluation, patient resting calmly bed tolerating p.o. intake and back to baseline requesting to leave. Given patient presentation, workup, history, this most likely represents acute vasovagal episode. Because patient at baseline without signs or symptoms of clinical decompensation, deemed appropriate for discharge. Results were relayed to patient who voiced understanding and were agreeable to outpatient management and follow up. At the time of discharge the patient was hemodynamically stable, tolerating PO, and mobilizing appropriately. Procedures Limited Ultrasound Indication:: Limited SANDOVAL ultrasound Indication: Hypotension Views: LUQ, RUQ, Pelvis, Limited Cardiac, Limited Thoracic, IVC, Aorta Interpretation: Peritoneal Free Fluid: Absent Pericardial effusion: Absent Right thoracic free Fluid: Absent Left thoracic Free Fluid: Absent Right lung pneumothorax: Absent Left Lung pneumothorax: Absent IVC: Collapsible Aorta: Normal Impression: Unremarkable SANDOVAL exam Images were saved to permanent archive The study was technically adequate CPT 14751-04 (limited cardiac) 67367-02 (limited abdominal) 12586-93 (chest) 64867-92 (aorta) 89456-49 (IVC) This study was performed by me, and I personally interpreted all images/videos. Based on my clinical judgement, these images were adequate and necessitate further imaging. Critical Care Critical Care Time Critical Care Time: Yes (CV) Attestation: On 05/08/23, the high probability of a clinically significant, sudden or life threatening deterioration of the following system(s) required my full and direct attention, intervention and personal management. The time I documented below is in addition to time spent performing reported procedures but includes the following listed in this critical care notation. Total Time Total Critical Care Time: 60
--- NOTE | 2023-05-08 08:52 | PC.NURSE ---
radiology notified of scans, wants stat, not to wait for labs
[2023-05-08 09:09] LABS: Basophils # 0.1 K/mm3 (0-0.2); Basophils % 0.8 % (0.1-2.0); Eosinophils # 0.3 K/mm3 (0.0-0.4); Eosinophils % 3.2 % (0.1-12.0); Hematocrit 41.9 % (37.0-47.0); Hemoglobin 13.8 g/dL (12.2-16.2); Lymphocytes # 3.2 K/mm3 (0.7-4.5); Mean Corpuscular HGB Conc 32.8 g/dL (31.8-35.4); Mean Corpuscular Hemoglobin 31.9 pg (27.0-31.2); Mean Corpuscular Volume 97.1 fl (81-99); Mean Platelet Volume 8.4 fl (7.4-10.4); Monocytes # 0.4 K/mm3 (0.1-1.0); Monocytes % 4.8 % (1.7-9.3); Neutrophils # 4.1 K/mm3 (1.8-7.8); Neutrophils % 51.2 % (37.0-80.0); Platelet Count 325 K/mm3 (142-424); Red Blood Count 4.32 M/mm3 (4.20-5.40); Red Cell Distribution Width 13.6 % (11.5-17.5); White Blood Count 7.9 K/mm3 (4.8-10.8)
--- NOTE | 2023-05-08 09:14 | PC.NURSE ---
called lab to let them know to hold a green top for resp for vbg
[2023-05-08 09:15] LABS: Alanine Aminotransferase 14 U/L (12-78); Albumin/Globulin Ratio 1.5 (1.1-1.8); Alkaline Phosphatase 60 U/L (38-126); Anion Gap 4.8 mEq/L (5-15); Aspartate Amino Transferase 24 U/L (14-36); Bilirubin,Total 0.4 mg/dl (0.2-1.3); Blood Urea Nitrogen 12 mg/dl (7-17); Calcium 8.6 mg/dl (8.4-10.2); Carbon Dioxide 33 mmol/L (22.0-30.0); Chloride 104 mmol/L (98-107); Creatinine Clearance Estimated 89 mL/min (50-200); Estimated Glomerular Filt Rate 59 ml/min (>60); GFR (African American) 71 ML/MIN (>60); Globulin 2.7 g/dL (1.3-3.2); Glucose 117 mg/dl (74-100); Lipase 38 U/L (23-300); Potassium 3.8 mmoL/L (3.5-5.1); Sodium 138 mmol/L (136-145); Total Protein,Serum 6.7 g/dl (6.3-8.2)
--- NOTE | 2023-05-08 09:16 | PC.NURSE ---
notified resp pt has a vbg ordered and green tube is at lab
[2023-05-08 09:24] LABS: VBG Base Excess -0.4 mmol/L (-2.4-2.3); VBG HCO3 25.4 mmol/L (23-30); VBG Oxygen Saturation 58.1 % (50-70); VBG PCO2 48.6 mmol/L (35-51); VBG PH 7.34 mmol/L (7.31-7.41); VBG PO2 31.6 mmol/L (28-40); VBG Total CO2 26.9 mmol/L (23-27)
[2023-05-08 09:27] LABS: NT Pro Brain Natriuretic Pep. 26.2 pg/mL (0-125)
[2023-05-08 09:29] LABS: Troponin I < 0.01 ng/ml (0.00-0.034)
[2023-05-08] MEDS: 0.9 % SODIUM CHLORIDE 50 ML VIAL IV (09:35)
[2023-05-08] MEDS: IOPAMIDOL-370 (76%);100ML BOTTLE 100 ML IV (09:35)
[2023-05-08] MEDS: SODIUM CHLORIDE 0.9% 10ML SYR (RAD ONLY) 10 ML IV (09:35)
--- NOTE | 2023-05-08 09:42 | PC.NURSE ---
Turned 02 off due to patient o2 sats 100% on 2L
[2023-05-08] MEDS: 0.9 % SODIUM CHLORIDE 1000ML 1,000 ML 999 ML IV (11:15)
[2023-05-08 11:50] LABS: Troponin I < 0.01 ng/ml (0.00-0.034)
[2023-05-08 12:18] LABS: Microscopic, Urine URINE MICROSCOPIC (MICROSCOPIC)
[2023-05-08 12:23] LABS: Appearance,Urine CLEAR (Clear); Bilirubin,Urine Negative (Negative); Blood, Urine TRACE-I (Negative); Color,Urine YELLOW (Yellow); Glucose,Urine (UA) Negative (Negative); Ketones,Urine Negative (Negative); Leukocyte Esterase,Urine Negative (Negative); Nitrate,Urine Negative (Negative); PH,Urine 6.5 (5.0-8.5); Protein,Urine Negative (Negative); Specific Gravity, Urine <= 1.005 (1.005-1.030); Urobilinogen,Urine 0.2 EU/dl (0.2)
[2023-05-08 12:51] LABS: Squamous Epithelial Cell,Urine Occasional #/hpf (0-5)
== END 2023-05-08 13:02 | disposition home or self-care (01) ==
PROVIDERS: Emergency Provider Emergency Medicine; PCP Internal Medicine
DX: R09.02 Hypoxemia (principal); I95.9 Hypotension, unspecified; R42 Dizziness and giddiness; M54.9 Dorsalgia, unspecified; R53.81 Other malaise; G40.919 Epilepsy, unspecified, intractable, without status epilepticus; J44.9 Chronic obstructive pulmonary disease, unspecified; E78.5 Hyperlipidemia, unspecified
CPT/HCPCS: 71045; 71275; 74174; 80053; 81001; 82803; 83690; 83880; 84484; 85025; 93005; 96360; 99291; Q9967

== ENCOUNTER 2024-11-20 12:07 | Emergency (ER) | payer MEDICAID, SELFPAY ==
[2024-11-20] VITALS (9 sets, daily range): BP systolic 116–149; BP diastolic 66–96; PULSE 79–112; RESP 15–19; TEMP 37.1–37.3; O2SAT 97–99; BMI 29.1
--- NOTE | 2024-11-20 12:09 | ECG_ITS ---
APPROVED REPORT Exam: Resting ECG HR:107 bpm ECG Measurements Heart Rate 107 AXES ND 110 P 53 QRSd 87 QRS 82 QT 332 T 69 QTc 395 Conclusion SINUS TACHYCARDIA WITH SHORT ND INTERVAL MODERATE ST DEPRESSION [0.05+ mV ST DEPRESSION] ABNORMAL ECG UNCONFIRMED REPORT Electronically signed by : Ezekiel Izquierdo, 11/20/2024 16:45:56
--- NOTE | 2024-11-20 12:17 | ED_ITS ---
<Statement entered by Ezekiel Izquierdo MD - 11/20/24 16:40> I independently examined this patient. She appears dry she is tachycardic, but is sinus on my independent interpretation of her EKG without acute ischemic ST change and intervals are within normal limits. After fluid resuscitation, her tachycardia improved. Regarding her chest pain, seems musculoskeletal in nature given reproducibility. ACS workup and cross-sectional imaging negative. I was consulted by the SEDRICK, and we discussed the complexity of problems being addressed. I approved the treatment and management plan for this patient's care in the emergency department, thus performing a substantial portion of the medical decision making. Ezekiel Izquierdo MD Discharge Plan Disposition Patient Disposition: Home, Self-Care Condition: Good Prescriptions Prescriptions: No Action quetiapine 100 mg tablet 100 mg PO HS duloxetine 60 mg capsule,delayed release(DR/EC) 60 mg PO cephalexin 500 mg capsule 500 mg PO TID Qty: 21 0RF cyclobenzaprine 10 mg tablet 10 mg PO BID Qty: 60 1RF clonazepam 0.5 mg tablet 0.5 mg PO BID Qty: 60 1RF gabapentin 300 mg capsule 300 mg PO BID Qty: 60 1RF oxycodone 10 mg tablet 10 mg PO TID Qty: 90 0RF ergocalciferol (vitamin D2) [Vitamin D2] 1,250 mcg (50,000 unit) capsule 1,250 mcg PO WEEKLY Qty: 5 2RF atorvastatin [Lipitor] 10 mg tablet 10 mg PO DAILY Qty: 30 3RF Referrals Follow up/Referrals: Victorino Olivares DO [Staff Physician, Family Practice] - See instructions Provider,MD Brian [Primary Care Provider, Medical] - See instructions Maninder Ordaz MD [Staff Physician, Cardiology] - See instructions Activity Restrictions/Add. Instructions Additional Instructions/Restrictions: I referred you both to a primary care physician as well as onto cardiology. Please call to make your appointment tomorrow. If you have any persistent new or worsening signs or symptoms you may return to the ER as needed. Clinical Impressions Clinical Impression: Tachycardia Chest pain Qualifiers: Chest pain type: unspecified Qualified Code(s): R07.9 - Chest pain, unspecified Print Language Print Language: Kosovan Discharge ED Provider: Ezekiel Izquierdo [facility] General Chief Complaint: Chest Pain Stated Complaint: chest pain Time Seen by Provider: 11/20/24 12:17 History of Present Illness HPI narrative: Patient presents for evaluation of chest pain. Patient is a 53-year-old female who is on no home medications and has not seen a doctor in many years. Patient states that she began having chest pain and rapid heart rate approximately 2 hours ago. Patient states that she has a longstanding history of a rapid heart rate but she has never seen a tail worker for this. Patient states that she was walking to a friend's house and she had so much chest discomfort that she had to stop several times. She denies any fever chills hemoptysis hematochezia melena hematemesis hematuria dysuria vomiting or diarrhea but does endorse nausea. Patient also incidentally notes that she is having some abdominal pain as well. Related Data Home Medications ?Medication ?Instructions ?Recorded ?Confirmed duloxetine 60 mg capsule,delayed 60 mg PO 10/12/2201/19 release quetiapine 100 mg tablet 100 mg PO HS 10/12/22 Previous Rx's ?Medication ?Instructions ?Recorded atorvastatin 10 mg tablet (Lipitor) 10 mg PO DAILY #30 tabs 10/17/22 ergocalciferol (vitamin D2) 1,250 1,250 mcg PO WEEKLY #5 caps 10/17/22 mcg (50,000 unit) capsule (Vitamin D2) cephalexin 500 mg capsule 500 mg PO TID #21 caps 02/04 clonazepam 0.5 mg tablet 0.5 mg PO BID Anxiety #60 ta bs 02/04/23 cyclobenzaprine 10 mg tablet 10 mg PO BID #60 tabs 01/19 gabapentin 300 mg capsule 300 mg PO BID Pain #60 caps 02/04/23 oxycodone 10 mg tablet 10 mg PO TID #90 tabs Allergies Allergy/AdvReac Type Severity Reaction Status Date / Time paroxetine Allergy Severe S-DIFF. Verified 11/20/24 12:27 BREATHING codeine Allergy Intermediate I-ITCHING Verified 11/20/24 12:27 ketorolac Allergy Intermediate I-HIVES Verified 11/20/24 12:27 latex Allergy Intermediate I-HIVES Verified 11/20/24 12:27 phenytoin AdvReac Severe NA-HALLUCIN Verified 11/20/24 12:27 ATIONS Corticosteroids AdvReac Mild TACHYCARDIA Verified 11/20/24 12:27 (Glucocorticoids) [facility] Disclaimer: The information contained in this section may have been updated after the patient was seen, as this information can be updated by other users. Social History Smoking Status: Current every day smoker tobacco type: cigarettes packs per day: 1 second hand exposure: No alcohol intake: never substance use type: former substance user, marijuana and opiates current occupational status: other Travel in the last 8 weeks?: None household members: children housing: house number of children: 2 current occupation: [employer] current occupational exposures/hazards: No caffeine: Yes Have you lived/traveled outside [place] in past 30 days?: No Contact w/someone who lives/traveled outside US past 30 days?: No Exposure to someone with infectious disease in past 14 days?: No Do you have a fever (greater than 100.4 F or 38 C)?: No Have you tested positive for COVID-19?: No Exposed to someone with COVID-19 in past 14 days?: No Do you have a sore throat?: No Do you have a cough?: No Do you have any weakness?: No Do you have any diarrhea?: No Are you experiencing any unusual bleeding?: No Do you have any muscle aches/pain?: No Do you have any abdominal pain?: No Are you experiencing loss of taste or smell?: No Other Medical History Have you received the Flu Vaccine for this season: No Have you received the Pneumonia Vaccine: No ROS Obtained: Yes Systems reviewed as appropriate & no additional complaints except as documented Physical Exam General General appearance: alert and in no apparent distress Respiratory Respiratory exam: Present normal lung sounds bilaterally Cardiovascular Cardiovascular exam: Present tachycardia Neurological Exam Neurological exam: Present alert and oriented X3 HEART Score HEART Score HEART Score assessment performed?: Yes History (anamnesis): Slightly suspicious ECG: Non-specific disturbance Age: 45-65 years Risk factors: 3 or more risk factors Troponin: </= normal limit HEART Score: 4 Critical Care Critical Care Time Critical Care Time: No Medical Decision Making Medical Records Medical records reviewed: Yes I reviewed the patient's medical records. Angelito Inquiry Pt receiving controlled substance: No Vital Signs Vital Signs: 11/20/24 12:22 11/20/24 12:30 11/20/24 13:00 Temperature 99.1 F Temperature Source Oral Pulse Rate 109 H 95 H Pulse Rate [Right Brachial] 112 H Respiratory Rate 18 Blood Pressure 143/83 H 126/83 Blood Pressure [Right Arm] 142/80 H Blood Pressure Mean [Right Arm] 100 Blood Pressure Source [Right Arm] Automatic Cuff Blood Pressure Position [Right Arm] Sitting 02 Sat by Pulse Oximetry 98 97 99 Oxygen Delivery Method Room Air 11/20/24 13:31 11/20/24 14:00 11/20/24 14:30 Temperature Temperature Source Pulse Rate 88 85 Pulse Rate [Right Brachial] Respiratory Rate 19 Blood Pressure 149/96 H 141/91 H 133/66 Blood Pressure [Right Arm] Blood Pressure Mean [Right Arm] Blood Pressure Source [Right Arm] Blood Pressure Position [Right Arm] 02 Sat by Pulse Oximetry 99 98 98 Oxygen Delivery Method Room Air Room Air Room Air 11/20/24 15:00 11/20/24 15:30 Temperature Temperature Source Pulse Rate Pulse Rate [Right Brachial] Respiratory Rate 15 17 Blood Pressure 132/80 116/76 Blood Pressure [Right Arm] Blood Pressure Mean [Right Arm] Blood Pressure Source [Right Arm] Blood Pressure Position [Right Arm] 02 Sat by Pulse Oximetry Oxygen Delivery Method Lab Data Lab results reviewed: Yes I reviewed the patient's lab results. Labs: Lab Results 11/20/24 12:20: WBC 10.4, RBC 4.49, Hgb 13.9, Hct 42.2, MCV 94.0, MCH 31.0, MCHC 32.9, RDW 13.4, Plt Count 358, MPV 10.9 H, Neut % (Auto) 59.6, Lymph % (Auto) 34.7, [place] % (Auto) 4.0, Eos % (Auto) 1.1, Baso % (Auto) 0.4, Neut # (Auto) 6.2, Lymph # (Auto) 3.6, [place] # (Auto) 0.4, Eos # (Auto) 0.1, Baso # (Auto) 0.0, PT 11.2, INR 1.01, Sodium 142, Potassium 3.6, Chloride 104, Carbon Dioxide 29, Anion Gap 12.6, BUN 10, Creatinine 0.80, Estimated Creat Clear 104, Estimated GFR 76, Est GFR ( Amer) 92, Glucose 122 H, Calcium 9.9, Magnesium 2.1, Total Bilirubin 0.4, AST 23, ALT 12, Alkaline Phosphatase 70, Troponin I < 0.01, NT-Pro-B Natriuret Pep 123, Total Protein 7.6, Albumin 4.2, Globulin 3.4 H, Albumin/Globulin Ratio 1.2, Lipase 122, Procalcitonin < 0.030, TSH 0.95, Free T4 Index 3.2 L, Thyroxine (T4) 9.9, T3 Uptake 32 11/20/24 12:20 11/20/24 12:20 Response Orders (Tests/Meds): ED MEDICATIONS Discontinued Medications Generic Name Dose Route Start Last Admin Trade Name Sergq PRN Reason Stop Dose Admin Acetaminophen 1,000 mg 11/20/24 12:30 11/20/24 12:43 Acetaminophen 500mg Tab PO 11/20/24 12:31 1,000 mg ONCE ONE Administration Aspirin 324 mg 11/20/24 12:32 11/20/24 12:48 Aspirin 81mg Chewable Tablet PO 11/20/24 12:33 324 mg ONCE ONE Administration Sodium Chloride 1,000 mls @ 999 mls/hr 11/20/24 12:30 11/20/24 12:40 Sod Chlor 0.9% 1000ml Bag IV 11/20/24 13:30 999 mls/hr .Q1H1M ONE Administration Iopamidol 85 ml 11/20/24 13:10 11/20/24 13:11 Iopamidol-370 (76%);100ml Bottle IV 11/20/24 13:11 85 ml ONCE ONE Administration Morphine Sulfate 1 mg 11/20/24 12:30 11/20/24 12:44 Morphine 2mg/Ml Syringe IV 11/20/24 12:31 1 mg ONCE ONE Administration Ondansetron HCl 4 mg 11/20/24 12:30 11/20/24 12:41 Ondansetron 4mg/2ml Vial IV 11/20/24 12:31 4 mg ONCE ONE Administration Sodium Chloride 10 ml 11/20/24 13:10 11/20/24 13:11 Sodium Chloride 0.9% 10ml Syr (Rad Only) IV 11/20/24 13:11 10 ml ONCE ONE Administration Sodium Chloride 50 ml 11/20/24 13:10 11/20/24 13:11 0.9 % Sodium Chloride 50 Ml Vial IV 11/20/24 13:11 50 ml ONCE ONE Administration ORDERS Category Date Time Status CT abdomen pelvis w con Stat Cat Scan 11/20/24 12:[address] angio chest PE protocol Stat Cat Scan 11/20/24 12:30 Completed BNP [NT Pro Brain Natriuretic Pep.] Stat Lab 11/20/24 12:20 Completed CBC w/Auto Diff [Complete Blood Count Auto Diff] Stat Lab 11/20/24 12:20 Completed CMP [Comprehensive Metabolic Panel] Stat Lab 11/20/24 12:20 Completed INR [Prothrombin Time INR] Stat Lab 11/20/24 12:20 Completed Lipase Stat Lab 11/20/24 12:20 Completed Magnesium Stat Lab 11/20/24 12:20 Completed Procalcitonin Stat Lab 11/20/24 12:20 Completed Thyroid Panel Stat Lab 11/20/24 12:20 Completed Trop I [Troponin I] Stat Lab 11/20/24 12:20 Completed Troponin I Q3H Lab 11/20/24 15:35 Received Troponin I Q3H Lab 11/20/24 18:45 Ordered MDM Narrative Medical Decision Narrative: In summary patient is a 53-year-old female who presents to the emergency department for evaluation of chest pain rapid heart rate and abdominal pain. Patient is initially normotensive with blood pressure 142/88 tachycardic at 112 with sinus tachycardia the bedside monitor breathing 18 times minute satting at 98% on room air upon arrival, with a temperature of 99.1. Physical exam is remarkable for clear breath sounds with no increased work of breathing accessory muscle use or adventitious sounds, cardiovascular is S1 and S2 rapid but regular rate and rhythm without murmurs gallops rubs or thrills there is no dependent edema. Abdomen soft mildly diffusely tender to palpation but no focal tenderness with normal bowel sounds no rebound or guarding or rigidity.. Differential diagnosis includes ACS versus PE versus pneumonia versus tachyarrhythmia versus anxiety versus aneurysm etc. Initial workup will be conducted with hematologic labs twelve-lead EKG CT scan chest abdomen pelvis. Initial interventions include crystalloid bolus Tylenol and Zofran morphine. Initial workup reviewed by me and her hematologic labs are significant for normal white count normal H&H with no neutrophilic shift and the remainder are nonactionable including an undetectable troponin. My informed interpretation of her imaging shows no acute process in the abdomen or chest prior to radiology read. Please see final read for interpretation. Upon repeat evaluation patient's heart rate has come down to 88 and she no longer has chest pain. Given this the patient was placed in observation status at 1345. Medical necessity for observational status is serial troponins. The patient was provided serial reevaluations continuous cardiac monitoring and pulse oximetry While awaiting results. Second troponin was also undetectable. Given this patient is appropriate for discharge with referral to cardiology for further ongoing management and to a PCP to establish care.. Total time in observation was 2 hours and 45 minutes.
--- NOTE | 2024-11-20 12:30 | CT_ITS ---
FINAL REPORT TECHNIQUE: Thin section axial CT with contrast with multiplanar reconstruction This study was performed with techniques to keep radiation doses as low as reasonably achievable, (ALARA). Individualized dose reduction techniques using automated exposure control or adjustment of mA and/or kV according to the patient''s size were employed. CLINICAL HISTORY: Tachycardia and chest pain COMPARISON: 05/08/2023 FINDINGS: Pulmonary vessels enhance in normal fashion without evidence of embolism. Thoracic aorta shows no dissection or aneurysm. There is a right lower lobe mass measuring 26 mm which is unchanged and considered benign. There is no acute pulmonary density. There is no significant pleural effusion. There is no significant pericardial effusion. No mediastinal or hilar adenopathy is present. IMPRESSION: No acute lung disease. No evidence of pulmonary embolism. Stable right lower lobe mass considered benign. Reviewed, Interpreted and Dictated by Rikki Murphy MD Transcribed by Lorenza Schroeder Authenticated and [facility]
--- OUTSIDE RECORDS SUMMARY | 2024-11-20 12:34 | XMS_ITS | Clinical Summary ---
Author Organization Healthcare Address [address] [place] [address] Care Team Providers Care Poultry Farmer Egg Name Role Phone Gaudencio Cantor MD Primary Care Provider + [phone] Family History Medical History Relation Name Comments Cardiac disorder Father Diabetes Father Menorrhagia Father Fibromyalgia Mother Osteoarthritis Mother Relation Name Status Comments Father Mother Social History Tobacco Use Types Packs/Day Years Used Date Smoking Tobacco: Every Day Alcohol Use Standard Drinks/Week Comments No 0 (1 standard drink = 0.6 oz pur e alcohol) Comments Unknown Sex and Gender Information Value Date Recorded Sex Assigned at Not on file Legal Sex Female 8:19 PM EDT Gender Identity Not on file Sexual Orientation Not on file Last Filed Vital Signs Vital Sign Reading Time Taken Comments Blood Pressure - - Pulse - - Temperature - - Respiratory Rate - - Oxygen Saturation - - Inhaled Oxygen Concentration - - Weight 85.3 kg (188 lb 2.3 oz) 06/03/2015 12:53 PM EST Height 165.1 cm (5' 5 ) 06/03/2015 12:53 PM EST Body Mass Index 31.31 06/03/2015 12:53 PM EST Plan of Treatment Not on file Care Teams Poultry Farmer Egg Relationship Specialty Start Date End Date Gaudencio Cantor MD [address] [place] [address] PCP - General 09/09/20
[2024-11-20 12:38] LABS: Hematocrit 42.2 % (37.0-47.0); Hemoglobin 13.9 g/dL (12.2-16.2); Immature Granulocytes % 0.2 %; Mean Corpuscular HGB Conc 32.9 g/dL (31.8-35.4); Mean Corpuscular Hemoglobin 31.0 pg (27.0-31.2); Mean Corpuscular Volume 94.0 fl (81-99); Nucleated Red Blood Cells % 0 %; Platelet Count 358 K/mm3 (142-424); Red Blood Count 4.49 M/mm3 (4.20-5.40); Red Cell Distribution Width-SD 46.3 fL; White Blood Count 10.4 K/mm3 (4.8-10.8)
[2024-11-20] MEDS: 0.9 % SODIUM CHLORIDE 1000ML 1,000 ML 999 ML IV (12:40)
[2024-11-20] MEDS: ONDANSETRON 4MG/2ML VIAL 4 MG IV (12:41)
[2024-11-20] MEDS: ACETAMINOPHEN 500MG TAB 1000 MG PO (12:43)
[2024-11-20] MEDS: MORPHINE 2MG/ML SYRINGE 1 MG IV (12:44)
--- NOTE | 2024-11-20 12:45 | CT_ITS ---
FINAL REPORT TECHNIQUE: IV contrast enhanced exam This study was performed with techniques to keep radiation doses as low as reasonably achievable, (ALARA). Individualized dose reduction techniques using automated exposure control or adjustment of mA and/or kV according to the patient''s size were employed. CLINICAL HISTORY: ruq ttp, no bm in days COMPARISON: 05/08/2023 FINDINGS: Abdomen: Small anterior right renal capsular cyst is stable. Remaining solid abdominal organs are unremarkable. The gallbladder is contracted. The bowel is unremarkable. There is no free air. No fluid collection is seen. There is no adenopathy. Pelvis: The appendix is normal. Pelvic bowel loops are unremarkable. The patient is status post hysterectomy. There is no free fluid. No pelvic mass or adenopathy is seen. IMPRESSION: No acute findings. Reviewed, Interpreted and Dictated by Rikki Murphy MD Transcribed by Lorenza Schroeder Authenticated and [facility]
[2024-11-20] MEDS: ASPIRIN 81MG CHEWABLE TABLET 324 MG PO (12:48)
[2024-11-20 12:49] LABS: INR 1.01 (0.9-1.1); Prothrombin Time 11.2 seconds (10.1-12.5)
[2024-11-20 13:01] LABS: Alanine Aminotransferase 12 U/L (12-78); Albumin Level 4.2 g/dl (3.5-5.0); Albumin/Globulin Ratio 1.2 (1.1-1.8); Alkaline Phosphatase 70 U/L (38-126); Anion Gap 12.6 mEq/L (5-15); Aspartate Amino Transferase 23 U/L (14-36); Bilirubin,Total 0.4 mg/dl (0.2-1.3); Blood Urea Nitrogen 10 mg/dl (7-17); Calcium 9.9 mg/dl (8.4-10.2); Carbon Dioxide 29 mmol/L (22.0-30.0); Chloride 104 mmol/L (98-107); Creatinine Clearance Estimated 104 mL/min (50-200); Creatinine,Serum 0.80 mg/dl (0.52-1.04); Estimated Glomerular Filt Rate 76 ml/min (>60); GFR (African American) 92 ML/MIN (>60); Globulin 3.4 g/dL (1.3-3.2); Glucose 122 mg/dl (74-100); Magnesium 2.1 mg/dl (1.6-2.3); Potassium 3.6 mmoL/L (3.5-5.1); Sodium 142 mmol/L (136-145); Total Protein,Serum 7.6 g/dl (6.3-8.2)
[2024-11-20 13:02] LABS: Lipase 122 U/L (23-300)
[2024-11-20] MEDS: IOPAMIDOL-370 (76%);100ML BOTTLE 85 ML IV (13:11)
[2024-11-20] MEDS: 0.9 % SODIUM CHLORIDE 50 ML VIAL IV (13:11)
[2024-11-20] MEDS: SODIUM CHLORIDE 0.9% 10ML SYR (RAD ONLY) 10 ML IV (13:11)
[2024-11-20 13:14] LABS: NT Pro Brain Natriuretic Pep. 123 pg/mL (0-125)
[2024-11-20 13:17] LABS: Troponin I < 0.01 ng/ml (0.00-0.034)
[2024-11-20 13:18] LABS: Free Thyroxine Index 3.2 ug/dL (5.93-13.13); T4 (Thyroxine) 9.9 ug/dl (5.53-11.0); Triiodothryronine (T3) Uptake 32 % (23.5-40.5)
[2024-11-20 13:21] LABS: Procalcitonin < 0.030 ng/mL (0.0-2.0)
[2024-11-20 13:31] LABS: Thyroid Stimulating Hormone 0.95 uIU/mL (0.465-4.68)
[2024-11-20 16:19] LABS: Troponin I < 0.01 ng/ml (0.00-0.034)
== END 2024-11-20 16:30 | disposition home or self-care (01) ==
PROVIDERS: Physician Assistant; Emergency Provider Emergency Medicine
DX: R07.89 Other chest pain (principal); R00.0 Tachycardia, unspecified; F17.210 Nicotine dependence, cigarettes, uncomplicated
CPT/HCPCS: 71275; 74177; 80053; 83690; 83735; 83880; 84145; 84436; 84443; 84479; 84484; 85025; 85610; 93005; 96361; 96374; 96375; 99285; J2270; J2405; J7030; Q9967